=== PATIENT | female | born 1970 | race Caucasian/White ===

== ENCOUNTER 2022-06-24 15:07 | Outpatient (CLI) | payer MEDICARE, SELFPAY ==
--- OUTSIDE RECORDS SUMMARY | 2022-06-24 15:11 | XMS_ITS | Encounter Summary ---
:1970 Author Organization [facility] Address [address], [place] [address] Care Team Providers Name Role Phone Felipa Shrestha MD Primary Care Provider Reason for Visit Reason Comments Refill predniSONE (DELTASONE) 20 MG tablet Encounter Details Date Type Department Care Team Description 02/06/2022 Telephone [facility] Dino Zamora Refill ([facility] MD Gillian (DELTASONE) 20 MG Neurology [address] tablet) [address] [place] [phone] Social History Tobacco Use Types Packs/Day Years Used Date Smoking Tobacco: Never Smokeless Tobacco: Never Alcohol Use Standard Drinks/Week Comments Yes 0 (1 standard drink = 0.6 oz pure alcoho l) 2 servings a month Sex Assigned at Date Recorded Not on file documented as of this encounter Nursing Notes iVckie Asif - 02/09/2022 4:26 PM CDT CA contacted patient she now has [employer] insurance which is out of network for NSC She has temporarily switched Neurologists and is going to see about switching insurance next year soshe can come back and see Dr Sera Asif 02/09/2022, 4:27 PM Lissette Asif MD - 02/06/2022 2:56 PM CDT done Alexia Shaikh RN - 02/06/2022 2:18 PM CDT Routing to NOD to advise Alexia Shaikh RN 02/06/2022, 2:19 PM Alexia Shaikh RN - 02/06/2022 12:[address] Zamora-Please advise on refill request. CA- please contact pt to schedule a follow up appt. Pt states that she currently has a migraine. Medication reviewed to ensure medication is not a controlled substance, approved for RN to order perprotocol. Medication: predniSONE (DELTASONE) 20 MG tablet Last date filled: 04/02/2021 Last office visit with: Aliza on 04/2021 Last note states: Medications: Frovatriptan as needed for migraine Amitriptlyine 25 mg nightly Verapamil 240 mg nightly. ??Sumatriptan IM injection - autoinjector cannot swallow ??Iron every other day B complex supplement - 3 days a week Magnesium, Riboflavin ??Prednisone 20 mg x 5 days when needed for severe migraine. ??Advice: Increase aerobic activity. This will help your muscles and your migraines. Try to do 30 minutes a day of walking or elliptical. ??We have reviewed records from [facility], [facility], [facility]; likely more of severe migraine disorder than seizure disorder. ??Follow up: 6 months. Arabella Fernandes - 02/06/2022 12:00 PM CDT Pt has migraine and requesting refill - pt states Dr. Zamora said to call if she needed one - please do today documented in this encounter Plan of Treatment Not on filedocumented as of this encounter Visit Diagnoses Diagnosis Hemiplegic migraine with status migraino ezekiel, not intractable Hemiplegic migraine, without mention of intractable migraine with status migrainosus documented in this encounter Care Teams Day Care Home Provider Relationship Specialty Start Date End Date Felipa Shrestha MD PCP - General Family Practice 08/26/18 [address] [place] [address] documented as of this encounter
--- OUTSIDE RECORDS SUMMARY | 2022-06-24 15:11 | XMS_ITS | Clinical Summary ---
:1970 [facility] Address [address], [place] [address] Care Team Providers Name Role Phone Felipa Shrestha MD Primary Care Provider Source Comments You are receiving this document as you are listed as the primary care provider,follow-up provider, or the patient has been referred to you for consultation.This is in compliance with the Medicare and Medicaid EHR Incentive Program,which states Providers who transition their patient to another setting of careor provider of care or refers their patient to another provider of care shouldprovide summarycare record for each transition of care or referral. NovoED Allergies Active Allergy Reactions Severity Noted Date Comments Fentanyl 09/21/2018 Morphine 09/21/2018 Diazepam 09/21/2018 Hydroxyzine 09/21/2018 Ondansetron 09/21/2018 Medications Medication Sig Dispensed Refills Start End Date Status Date DIAZEPAM RE 0 Active drug not in Indications: 0 Activ e computerIndications: frovatritan 2.5 frovatritan 2.5 promethazine (PHENERGAN) Take 1 Tablet by 30 Tablet 3 01/22/20 2 Active 25 MG tabletIndications: mouth every 6 0 Hemiplegic migraine hours as needed without status for Nausea. migrainosus, not intractable ketorolac (TORADOL) 10 Take 1 Tablet by 30 Tablet 2 Active MG tabletIndications: mouth every 6 0 Hemiplegic migraine hours as needed without status (for migraines). migrainosus, not intractable dexamethasone (DECADRON) 4 mg for 3 days, 15 Tablet 3 01/22/20 2 Active 1 MG tabletIndications: 2mg for 1 day, 0 Hemiplegic migraine then 1mg x 1 day. without status migrainosus, not intractable Accu-Chek Mindy Plus Use to test daily. 1 Each 0 Active meterIndications: Use as directed. 0 Pre-diabetes Pharmacy dispense brand based on insurance. Code R73.03 lancet (ACCU-CHEK Use to test daily. 1 Each 0 Active FASTCLIX) Use as directed. 0 deviceIndications: Pharmacy dispense Pre-diabetes brand based on insurance. Code R73.03 verapamil (VERELAN) 240 Take 1 Capsule by 90 Capsule 3 02 Active MG 24 hour release mouth every 0 capsuleIndications: evening. Hemiplegic migraine without status migrainosus, not intractable, Migraine with aura and without status migrainosus, not intractable ACCU-CHEK GUIDE test USE TO TEST DAILY 100 Strip 3 Active stripIndications: 1 Pre-diabetes metFORMIN XR (GLUCOPHAGE Take 4 Tablets by 360 Tablet 0 Active XR) 500 MG 24 hour mouth daily with 1 release breakfast. tabletIndications: Pre-diabetes B ComplexIndications: Take one capsule 3 60 Capsule 0 02/05/20 2 Active Hemiplegic migraine with days a week. 1 status migrainosus, not intractable, Vitamin B12 deficiency (HRC) ferrous sulfate 325 (65 Take one tab daily 90 Tablet 0 02 Active Fe) MGIndications: with food. 1 Muscle cramping, Low ferritin level amitriptyline (ELAVIL) Take 1 Tablet by 90 Tablet 1 Active 25 MG tabletIndications: mouth daily at 1 Hemiplegic migraine bedtime. without status migrainosus, not intractable SUMAtriptan (IMITREX) 6 Inject 0.5 mL 2 mL 11 Active MG/0.5ML subcutaneously 1 injectionIndications: once as needed. Hemiplegic migraine without status migrainosus, not intractable hydroCHLOROthiazide TAKE 1 TABLET BY 90 Tablet 0 Active (ORETIC) 25 MG MOUTH DAILY. 1 tabletIndications: Essential hypertension (HRC) SUMAtriptan (IMITREX Inject 0.5 mL (6 2 mL 11 Active STATDOSE REFILL) 6 mg) subcutaneously 2 MG/0.5ML once as needed. injectionIndications: May repeat in 2 Hemiplegic migraine hours. MAX 2 doses without status a day. migrainosus, not intractable frovatriptan (FROVA) 2.5 Take 1 Tablet (2.5 9 Tablet 1 Active MG tabletIndications: mg) by mouth as 2 Hemiplegic migraine needed (migraine). without status migrainosus, not intractable predniSONE (DELTASONE) Take 1 Tablet (20 5 Tablet 0 Active 20 MG tabletIndications: mg) by mouth 2 Hemiplegic migraine with daily. For 3-5 status migrainosus, not days for migraine intractable flare. Active Problems Problem Noted Date Morbid obesity with BMI of 40.0-44.9, adult 02/22/2020 Prolonged QT interval 01/25/2020 MORIS (obstructive sleep apnea) 11/10/2018 Overview: Moderate, see scan doc 10/2018. Pre-diabetes 09/21/2018 SALLY (generalized anxiety disorder) 09/21/2018 Chronic ulcerative colitis 09/21/2018 Hemiplegic migraine 09/21/2018 Vitamin D deficiency 09/21/2018 Vitamin B12 deficiency 09/21/2018 Current moderate episode of major depressive disorder without prior 09/21/2018 episode Essential hypertension 09/21/2018 Secondary seizure disorder 09/21/2018 Overview: From hemiplegic migraines Polycystic ovary syndrome 03/05/2004 Resolved Problems Problem Noted Date Resolved Date Spasm of muscle 09/21/2018 08/02/2020 Nonintractable epilepsy 09/21/2018 09/21/2018 Overview: From her migraines. Family History Medical History Relation Name Comments Cancer, Bladder Father Cancer, Colon Father 77 Cancer, Prostate Father Diabetes Father Hypertension Father Bipolar Disorder Mother Hypertension Mother Migraines Child Diabetes Maternal Grandfather Diabetes Maternal Grandmother Diabetes Paternal Grandfather Diabetes Paternal Grandmother Migraines Sister Relation Name Status Comments Father Mother Child Maternal Grandfather Maternal Grandmother Paternal Grandfather Paternal Grandmother Sister Social History Tobacco Use Types Packs/Day Years Used Date Smoking Tobacco: Never Smokeless Tobacco: Never Alcohol Use Standard Drinks/Week Comments Yes 0 (1 standard drink = 0.6 oz pure alcoho l) 2 servings a month Sex Assigned at Date Recorded Not on file Last Filed Vital Signs Vital Sign Reading Time Taken Comments Blood Pressure 118/86 02/04/2021 1:06 PM CDT Pulse 80 02/04/2021 1:06 PM CDT Temperature - - Respiratory Rate 18 06/16/2019 8:03 AM CDT Oxygen Saturation - - Inhaled Oxygen Concentration - - Weight 103.4 kg (228 lb) 05/06/2021 2:35 PM CDT Height 170.2 cm (5' 7) 06/16/2019 8:03 AM CDT Body Mass Index 35.71 06/16/2019 8:03 AM CDT Plan of Treatment Health Maintenance Due Date Last Done Comments Colon Cancer Screening Plan 1970 Due Hep C Screening (Preventive 1970 Services) HepB (1) 1970 Medicare Annual Wellness 1970 Visit Mammogram 1970 COVID-19 Vaccine (#1) 05/16/1970 HIV Screening (Preventive 1985 Services) DTaP/Tdap/Td (1 - Tdap) 1988 Zoster/Shingles (1 of 2) 11/14/2019 Prediabetes: HGBA1C 01/22/2021 01/23/2020, 09/21/2018 Influenza (#1) 2022 Cholesterol 01/22/2025 01/23/2020, 09/21/2018 HepA Aged Out No longer eligib le based on patient's age to complete this to pic Hib Aged Out No longer eligib le based on patient's age to complete this to pic IPV (Polio) Aged Out No longer eligib le based on patient's age to complete this to pic MCV4 Aged Out No longer eligib le based on patient's age to complete this to pic Pneumococcal Aged Out No longer eligib le based on patient's age to complete this to pic Insurance Payer Benefit Plan / Subscriber ID Effective Dates Phone Addre ss Type Group MEDICARE MEDICARE [id number] 2006-Shala WADE [id number] 2021-Shala [phone] [address] MEDICARE t 2 [id number] [place] [address] 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
--- OUTSIDE RECORDS SUMMARY | 2022-06-24 15:12 | XMS_ITS | Encounter Summary ---
:1970 Author Organization [facility] Address [address], [place] [address] Care Team Providers Name Role Phone Felipa Shrestha MD Primary Care Provider Reason for Visit Reason Comments HEADACHE,MIGRAINE Encounter Details Date Type Department Care Team Description [facility]iplegic migraine without status migrainosus, not intractable (Primary Dx); [facility] MD Gillian Chronic ulcerative colitis with complica tion, unspecified location ([facility]); Neurology [address] Muscle aches; [address] [place], [place] [id number] Social History Tobacco Use Types Packs/Day Years Used Date Smoking Tobacco: Never Smokeless Tobacco: Never Alcohol Use Standard Drinks/Week Comments Yes 0 (1 standard drink = 0.6 oz pure alcoho l) 2 servings a month Sex Assigned at Date Recorded Not on file documented as of this encounter Last Filed Vital Signs Vital Sign Reading Time Taken Comments Blood Pressure - - Pulse - - Temperature - - Respiratory Rate - - Oxygen Saturation - - Inhaled Oxygen Concentration - - Weight 103.4 kg (228 lb) 05/06/2021 2:35 PM CDT Height - - Body Mass Index 35.71 06/16/2019 8:03 AM CDT documented in this encounter Patient Instructions Patient InstructionsDino Zamora MD - 05/06/2021 2:20 PM CDT Hemiplegic/Atypical migraine Dizziness Seizure Disorder - I am not sure that you have a seizure disorder History of Vitamin B12 and D deficiency Muscle cramping, twitching -- restless legs -- related to low ferritin Ulcerative Colitis Likely Inflammation from diet is provoking migraines - you have identified that as a trigger. Tests: Labs look okay - there is low ferritin, low CK. Can remeasure iron and ferritin. Medications: Frovatriptan as needed for migraine Amitriptlyine 25 mg nightly Verapamil 240 mg nightly. Sumatriptan IM injection - autoinjector if you cannot swallow Iron every other day B complex supplement - 3 days a week Magnesium, Riboflavin Prednisone 20 mg x 5 days when needed for severe migraine. Advice: Increase aerobic activity. This will help your muscles and your migraines. Try to do 30 minutes a day of walking or elliptical. Follow up: 6 months. documented in this encounter Progress Notes Dino Zamora MD - 05/06/2021 2:20 PM CDT DATE OF VISIT: 05/06/21 [facility] Neurology [address] [place] [address] Dept: [phone] Dept VIDEO VISIT Patient location: Home Provider location: [facility] IMPRESSION AND DISCUSSION: Sandra Pimentel is a 50 y.o. old female # Hemiplegic migraine and possible seizure disorder Diagnosis of hemiplegic migraine and seizure disorder diagnosed at [facility] in 2009. She getssevere headaches that last all day and gets weakness on the RIGHT side and atypical movements on theRIGHT Side. She has not had an abnormal EEG. There has been some question to whether this is a seizure disorder but she has not had abnormal imaging or EEG. She has had catatonic type episodes and inability to move. She has had a normal MRA Head, MRI BRAIN and EEG monitoring (with events) as of 2003 evaluation at [facility]. She had normal imaging and EEG at [facility] in 2011. We have reviewed records from [facility], [facility], [facility]; likely more of severe migraine disorder than seizure disorder or vascular disorder. There is no evidence of vascular disease or seizure per workup. She has been on several other meds that have not helped. I have refilled Verapamil. Given her QT prolongation we reduced her Amitriptyline to 25 mg nightly in 01/2020. She has done okay on this dose. - Verapamil 240 mg nightly - Frovatriptan as needed. Using 5-9x a month. - Amitriptyline 25 mg daily. - Magnesium, Riboflavin, CoQ10. - Sumatriptan IM injection - autoinjector cannot swallow She went to the [facility] recently. We have requested records. She needed slow Mag drip. She needed injection. She did not tolerate Motrin or Toradol due to chronic US. We talked about Prednisone 20 mg x 5 days when getting bad migraine spells. She has had prednisone induced wilma. She thinks this was related to weather. These were hemiplegic migraine with weakness on right side. - Prednisone 20 mg x 5 days if needed. # Dizziness and syncope She had syncopal event at home x 2 on 01/25/20 and was admitted. She was found to have prolonged QT interval. She states she was put on a new medication (HCTZ/lisinopril) and passed out. She does not remember the dose of this medication. She has been helped over the years by Verapamil and Amitriptyline. She has since moved to [facility] and was managed at [facility]; they were considering autonomic neuropathy (we do not have full records). She is now off of amlodopine and metformin and dizziness is improved. Of note she has also lost weight. This has improved since stopping Weight Watchers diet and reducing blood pressure as of December 2020. Does not appear related to migraine. She is going to restart Weight Watchers. We talked about taking iteasy and incorporating aerobic exercise. # Twitching, nocturnal cramps, low ferritin More muscle cramps during the day in Summer 2020. Could be related to her chronic UC. She has had some episodes of twitching and nocturnal cramps. She thought amlodopine could be contributing to these cramps, she is now off of it. These are exacerbated during migraines. She has a history of anemia dueto ulcerative colitis. To check ferritin and iron given RLS and mm cramps. To do ferrous sulfate every other day as of 04/2021. This has improved since replacing ferritin and doing walking program. # History of B12 deficiency and Vit D deficiency, related to Chronic UC Normal levels as of 02/27/20. She may be having more sx due to B vitamin deficiency. We will start B Complex supplement 3 days a week. We will remeasure B vitamins today. We have reviewed and will ask for further records from [facility] and [facility]. PLAN (per patient instructions): Hemiplegic/Atypical migraine Dizziness Seizure Disorder - I am not sure that you have a seizure disorder History of Vitamin B12 and D deficiency Muscle cramping, twitching -- restless legs -- related to low ferritin Ulcerative Colitis Likely Inflammation from diet is provoking migraines - you have identified that as a trigger. Tests: Labs look okay - there is low ferritin, low CK. Can remeasure iron and ferritin. Medications: Frovatriptan as needed for migraine Amitriptlyine 25 mg nightly Verapamil 240 mg nightly. Sumatriptan IM injection - autoinjector cannot swallow Iron every other day B complex supplement - 3 days a week Magnesium, Riboflavin Prednisone 20 mg x 5 days when needed for severe migraine. Advice: Increase aerobic activity. This will help your muscles and your migraines. Try to do 30 minutes a day of walking or elliptical. We have reviewed records from [facility], [facility], [facility]; likely more of severe migraine disorder than seizure disorder. Follow up: 6 months. Interval Hx: - Steroids really helped. Took for 5 days then additional 2 days. Sugar spiked to 216. She has borderline diabetes. Stopped second treatment after 2 days. - Thinks it was heat and stress, lack of sleep that provoked migraine exacerbation. Getting better sleep now. She is exercising more. - No LOC episodes. - Dizziness spells, not as much now, went off amlodopine. - Taking Benadryl, CBD oil, Motrin, Tylenol for muscle cramping, pain. Motrin and Toradol mess with her colitis. - Lost 46 lbs since last visit in January. She started Weight Watchers but not for her, she has lost 7 lbs overall, had to switch to modified version. She thinks that she is no longer diabetic and perhapsmetformin was causing problems as well. When follows Weight Watchers - less migraines, feels better. History of Present Illness: Sandra Pimentel is a 50 y.o. old female right-handed History was obtained by patient and family interview, chart review and CareEverywhere review. Seen [facility] 01/25/20 for syncopal episode x2 while at home. She has history of hemiplegic migraine and have 5-7 episodes per month and takes medication for it. She was seen by her PCP and was started on lisinopril/hydrochlorothiazide . Previously she was on hydrochlorothiazide and did fairly well but her blood pressure without control. Nevertheless, she was out shopping today and felt somewhat dizzy and was able to drive herself home. Relates that she have a brief episode of syncope duration unknown and thought nothing of it. However, she experienced another episode while climbing a flightof stairs. Again duration unknown. Relates that she suffered some right knee discomfort but is able to ambulate fairly well. She called PCP and notify her of the syncopal episode and was advised to be evaluated in the ER. Indicated these episodes are most likely secondary to the blood pressure medication. Patient was given IV fluid in the ER and was advised to be admitted with noted prolonged QT interval. Blood pressure medication was withheld for the time being. She will be placed on telemetry also. Has history of hemiplegic migraine, hypertension and diabetic type 2. She was provided with IV fluids and admission was recommended for monitoring. Overnight she did well. After initial blood pressures were less than 90, her antihypertensive medications were held and they state above 110 during her hospital stay. She had no tachycardia. There are no events on telemetry overnight. She was able to ambulate and was requesting to go home the day after admission. She was discharged in stable condition. It was recommended that she resume her hydrochlorothiazide alone and discuss a lower dose of lisinopril with her primary care provider. She will continue to monitor her blood pressure at home. She will continue on her diabetic medication as well as migraine medication as previously prescribed. She has had a chronic indeterminate illness which can continue to be evaluated by her primary care provider. I would suggest that she have a repeat EKG done at her follow-up appointment for further evaluation of the QT prolongation. It is known that amitriptyline can increase the QT duration, however she willbe continued on this medication for management of her migraines. She was encouraged to limit the useof promethazine and diphenhydramine which also may prolong the QT interval. She was diagnosed with hemiplegic migraine and seizure disorder about 10 years ago in [place] (2009). She initially got sick with a severe migraine in the year 1999. July 2000 - was hospitalized with tonic clonic seizures. She notes that she has had several evaluations, including in [place], with EEG and MRI BRAIN - these have been normal. She recently saw a neurologist Dr. Darvin Eli in [facility]. At worst she has having 25 episodes of headache and nausea/vomiting a month. She has been helped by Magnesium treatments, and moving away from coal, magnesium and other toxins. She is also staying awayfrom eating beef. She is now getting 5-7 episodes a month. She gets convulsions, arm and leg twisting, retching, sometimes nausea and vomiting, back arching. She was told she may have a conversion disorder. She has not had many of these episodes recently now that she has been trying to eat and live healthier. Medication trials: Depakote - Weight gain Trazodone - Allergies Topamax - Cognitive changes, some other changes (20 years ago and did not help) Frovatriptan has been a godsend. If she takes it within 10-20 minutes of an aura it brings her to a level she was better than she was before. This is only if she has a speech episode or looks pale orgets another type of aura. DATA: All labs, radiology images/reports, data was reviewed personally and with patient today. Component Latest Ref Rng & Units 05/06/2021 Vitamin B12 213 - 816 pg/mL 363 Ferritin 9 - 204 ng/mL 47 Component Latest Ref Rng & Units 02/27/2020 Vitamin B12 213 - 816 pg/mL 448 Vitamin D,25 Hydroxy 30 - 80 ng/mL 31 ESR 0 - 20 mm/hr 13 C-Reactive Protein 0.0 - 0.7 mg/dL 1.0 (H) EKG: Ventricular Rate 95 BPM Preliminary Atrial Rate 95 BPM Preliminary P-R Interval 144 ms Preliminary QRS Duration 76 ms Preliminary QT 370 ms Preliminary QTc 464 ms Preliminary P [place] 62 degrees Preliminary R [place] -14 degrees Preliminary T [place] 40 degrees Preliminary Component Latest Ref Rng & Units 12/03/2020 Iron 50 - 170 mcg/dL 92 Transferrin 180 - 382 mg/dL 299 TIBC 240 - 450 mcg/dL 374 % Saturation, calc. 10 - 50 % 25 Ferritin 9 - 204 ng/mL 46 CK, Total 29 - 168 U/L 27 (L) LD 119 - 235 U/L 159 ESR 0 - 20 mm/hr 15 C-Reactive Protein 0.0 - 0.7 mg/dL 0.7 MRA HEAD 04-Mar-2004 09:22:00 ??Exam: MRA/v Hd wo Indications: mra head - r/o aneurysm^ ORIGINAL REPORT - 04-Mar-2004 11:12:00 MRA of the intracranial arterial system is negative. Major intracranial vessels are patent and without MRA evidence of aneurysm. Prominent right posterior communicating artery. MRI BRAIN 2004 31-Aug-2003 13:19:00 Exam: MRI Hd wo Indications: headseizure protocol^sz ORIGINAL REPORT - 31-Aug-2003 14:13:00 MRI head without contrast, compared with outside MRI of 07-07-02. The intracranial examination is normal. Mild mucosal disease anterior left ethmoid air cells and moderate mucosal disease throughout the right ethmoid air cells, not significantly changed. Minimal mucosal disease both maxillary sinuses with polyp or mucosal retention cysts bilaterally, new. No other significant change. Remainder negative. Ind: 107.990 Dia.200 Kentrell Soares MD [phone] ([id number]) I have reviewed the films/images and agree with the above interpretation. Electronically signed by: Vicki Campbell M.D. [id number] 31-Aug-2003 14:11 EEG 2003 Referring Physician: ??Basim ??[id number] ? Date: ??30 Aug 2003 ?? EEG Transformer Molder: ? Michelle Nogueira [id number] ? 31 Aug 2003 ?? Clinical Problem: ? Computer-assisted prolonged video EEG ?? CLINICAL INTERPRETATION: ??The patient's prolonged video EEG monitoring study was normal. ??No epileptiform activity was ?? recorded. ??The patient experienced one of her typical episodes of headache, nausea, and vomiting with abdominal ?? jerking. ??During the period of these symptoms, there was no change in the character of the background EEG. ??There was ?? an excess of beta activity, which would be consistent with medications that the patient is receiving. ?? EEG CLASSIFICATION: ??Special study - computer-assisted prolonged video EEG; Dysrhythmia gr. 1 generalized excess beta ?? 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 ?? REPORT: ??Computer-assisted prolonged video EEG monitoring was performed beginning on 08-30-03 at 11:00 and concluding on ?? 08-31-03 at 11:00. ?? BACKGROUND: Computer-assisted sampling of the interictal background revealed 9-10 Hz alpha activity over the posterior ?? head regions. ??There was an excess of beta activity, maximal over the frontal head regions. ??Sleep activity was normal ?? in content and distribution. ?? INTERICTAL DISCHARGES: ??No interictal discharges were recorded. ?? CLINICAL EVENTS: ??During the monitoring period, the patient experienced one of her typical spells, which began with ?? acute onset of headache, nausea, and maliha vomiting. ??One hour and 15 minutes into this episode, the patient was noted ?? to have her typical abdominal jerking movements, in which she flexed forward at the waist with left shoulder moving ?? toward the right side. ??The patient had audible grunting or retching associated with this movement. ??Throughout this ?? episode, there was no change in the character of the background EEG recording. 30 Aug 2003 Electroencephalography Final Report Referring Physician: Basim [id number] Date: 30 Aug 2003 EEG Transformer Molder: Michelle Nogueira [id number] 31 Aug 2003 Clinical Problem: Computer-assisted prolonged video EEG CLINICAL INTERPRETATION: The patient's prolonged video EEG monitoring study was normal. No epileptiform activity was recorded. The patient experienced one of her typical episodes of headache, nausea, and vomiting with abdominal jerking. During the period of these symptoms, there was no change in the character of the background EEG. There was an excess of beta activity, which would be consistent with medications that the patient is receiving. EEG CLASSIFICATION: Special study - computer-assisted prolonged video EEG; Dysrhythmia gr. 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 REPORT: Computer-assisted prolonged video EEG monitoring was performed beginning on 08-30-03 at 11:00and concluding on 08-31-03 at 11:00. BACKGROUND: Computer-assisted sampling of the interictal background revealed 9- 10 Hz alpha activityover the posterior head regions. There was an excess of beta activity, maximal over the frontal head regions. Sleep activity was normal in content and distribution. INTERICTAL DISCHARGES: No interictal discharges were recorded. CLINICAL EVENTS: During the monitoring period, the patient experienced one of her typical spells, which began with acute onset of headache, nausea, and maliha vomiting. One hour and 15 minutes into this episode, thepatient was noted to have her typical abdominal jerking movements, in which she flexed forward at the waist with leftshoulder moving toward the right side. The patient had audible grunting or retching associated with this movement. Throughout this episode, there was no change in the character of the background EEG recording. CONSTITUTIONAL REVIEW OF SYSTEMS: Negative across 10 systems except for HPI and: Dizziness spells No recent illness No change to urine or bowel. Past Medical History: has no past medical history on file. has a past surgical history that includes laparoscopy; total abdominal hysterectomy; cholecystectomy; and appendectomy. Social History: reports that she has never smoked. She has never used smokeless tobacco. She reportscurrent alcohol use. She reports that she does not use drugs. She is on disability. 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 Family History: family history includes Bipolar Disorder in her mother; Cancer, Bladder in herbirth father; Cancer, Colon in her father; Cancer, Prostate in her father; Diabetes in her father, maternal grandfather, maternal grandmother, paternal grandfather, and paternal grandm other; Hypertension in her father and mother; Migraines in her child and sister. Allergies Allergen Reactions ??? Fentanyl ??? Morphine ??? Valium [Diazepam] ??? Vistaril [Hydroxyzine] ??? Zofran [Ondansetron] Accu-Chek Mindy Plus meter, Use to test daily. Use as directed. Pharmacy dispense brand based on insurance. Code R73.03, Disp: 1 Each, Rfl: 0 ACCU-CHEK GUIDE test strip, USE TO TEST DAILY, Disp: 100 Strip, Rfl: 3 amitriptyline (ELAVIL) 25 MG tablet, Take 1 Tablet by mouth daily at bedtime., Disp: 90 Tablet, Rfl:1 B Complex, Take one capsule 3 days a week., Disp: 60 Capsule, Rfl: 0 dexamethasone (DECADRON) 1 MG tablet, 4 mg for 3 days, 2mg for 1 day, then 1mg x 1 day., Disp: 15 Tablet, Rfl: 3 DIAZEPAM RE, , Disp: , Rfl: drug not in computer, Indications: frovatritan 2.5, Disp: , Rfl: estradiol (VIVELLEDOT) 0.1 MG/24HR biweekly patch, Apply 1 Patch to skin., Disp: , Rfl: ferrous sulfate 325 (65 Fe) MG, Take one tab daily with food., Disp: 90 Tablet, Rfl: 0 frovatriptan (FROVA) 2.5 MG tablet, Take 1 Tablet by mouth once as needed for up to 1 dose., Disp: 9Tablet, Rfl: 11 hydroCHLOROthiazide (ORETIC) 25 MG tablet, TAKE 1 TABLET BY MOUTH DAILY. , Disp: 90 Tablet, Rfl: 1 ketorolac (TORADOL) 10 MG tablet, Take 1 Tablet by mouth every 6 hours as needed (for migraines)., Disp: 30 Tablet, Rfl: 2 lancet (ACCU-CHEK FASTCLIX) device, Use to test daily. Use as directed. Pharmacy dispense brand based on insurance. Code R73.03, Disp: 1 Each, Rfl: 0 metFORMIN XR (GLUCOPHAGE XR) 500 MG 24 hour release tablet, Take 4 Tablets by mouth daily with breakfast., Disp: 360 Tablet, Rfl: 0 predniSONE (DELTASONE) 20 MG tablet, TAKE 1 TABLET BY MOUTH DAILY. FOR 3-5 DAYS FOR MIGRAINE FLARE.,Disp: 5 Tablet, Rfl: 0 promethazine (PHENERGAN) 25 MG tablet, Take 1 Tablet by mouth every 6 hours as needed for Nausea., Disp: 30 Tablet, Rfl: 3 sulfaSALAzine (AZULFIDINEENTAB) 500 MG enteric coated tablet, Take 1 Tablet by mouth 4 times a day. Take with food to minimize GI upset especially in first week of use., Disp: 360 Tablet, Rfl: 3 SUMAtriptan (IMITREX) 6 MG/0.5ML injection, Inject 0.5 mL subcutaneously once as needed., Disp: 2 mL, Rfl: 11 verapamil (VERELAN) 240 MG 24 hour release capsule, Take 1 Capsule by mouth every evening., Disp: 90Capsule, Rfl: 3 No current facility-administered medications on file as of 05/06/2021. PHYSICAL EXAMINATION: Wt 228 lb (103.4 kg) BMI 35.71 kg/m?? General: Patient was a pleasant 50 y.o. female, appearing stated age, resting comfortably and in no acute distress. Pain level 5/10. HEENT: Anicteric. Oropharynx was clear and moist. There was no tenderness in the frontal or maxillary sinuses, nor the temples. Neck:Good ROM. nontender. Extr: no edema NEUROLOGICAL EXAM: Mental Status: Patient???s behavior was appropriate and cooperative. The patient was aware of current events. Speech was fluent without paraphasic errors. Normal recall. CN II-XII: Visual polo were full to confrontation. Extraocular movements were intact with normal smooth pursuit. Sensation was intact in V1, V2, V3 distribution. There was no facial asymmetry. Facialmovements were normal. There was no hypomimia or hypophonia or dysarthria. Sensation: Normal. Gait: Normal stance and stride. TT 44 mins with counseling, education and coordination of care, and answering questions, including effects and side effects of medications, medication interactions, and changes to the medication regimen as above, and review of records from [facility] and [facility]. Counseling: All of the above was explained to the patient in lay language. The patient has verbalized a clear understanding of the discussion, asked appropriate questions, which have been answered to patient's apparent satisfaction. The patient is in agreement with the above plan. Dino Zamora M.D. [facility] Neurology documented in this encounter Plan of Treatment Not on filedocumented as of this encounter Results Iron (no IBC or Sat) (05/06/2021 9:18 AM CDT) P athologist Signature Iron 73 50 - 170 05/06/2021 [facility] mcg/dL 3:27 PM CDT LABORATORY Specimen Anatomical Collection Method / Collection Time Recei jagdeep Time (Source) Location / Volume Laterality Blood Venipuncture / 05/06/2021 9:18 05/06/2021 9:18 Unknown AM CDT AM CDT Dino Zamora MD LAB_1 Performing Organization Address City/State/ZIP Code Phon e Number [facility] [address] [place] [address] documented in this encounter Visit Diagnoses Diagnosis Hemiplegic migraine without status migra inosus, not intractable - Primary Hemiplegic migraine, without mention of intractable migraine without mention of status migrainosus Chronic ulcerative colitis with complica tion, unspecified location ([facility]) Muscle aches Iron deficiency ([facility]) Other disorders of iron metabolism documented in this encounter Care Teams Sales Representative Public Utilities Relationship Specialty Start Date End Date Felipa Shrestha MD PCP - General Family Practice 08/26/[address] [place] [address] [id number] documented as of this encounter
--- OUTSIDE RECORDS SUMMARY | 2022-06-24 15:12 | XMS_ITS | Encounter Summary ---
:1970 Author Organization [facility] Address [address], [place] [address] Care Team Providers Name Role Phone Victor M Shrestha MD Primary Care Provider Reason for Visit Reason Comments Refill hydroCHLOROthiazide (ORETIC) 25 MG tablet [Pharmacy Med Name: hydroCHLOROthiazide Oral Tab let 25 MG] Encounter Details Date Type Department Care Team Description 08/04/2021 Refill [facility] Victor M Shrestha, Refill (hydroCHLOROthiazide Medicine (ORETIC) 25 MG tablet [id number] Magana [Pharmacy Med Name: [place] [address] [place], [place] hydroCHLOROthiazide Oral [phone] [id number] Tablet 25 MG]) Social History Tobacco Use Types Packs/Day Years Used Date Smoking Tobacco: Never Smokeless Tobacco: Never Alcohol Use Standard Drinks/Week Comments Yes 0 (1 standard drink = 0.6 oz pure alcoho l) 2 servings a month Sex Assigned at Date Recorded Not on file documented as of this encounter Nursing Notes Shabnam Calle - 08/11/2021 9:50 AM CST LM regarding refill. Gave [phone] to schedule before next refill request. Victor M Cohen MD - 08/06/2021 3:17 PM CST Refill completed and no further refills will be given prior to a visit. ATION SITE MANAGER Moshe Ulloa RN - 08/06/2021 2:27 PM CST Further Assistance Needed on Refill from Clinician RN reviewed. Patient overdue for Lab(s). -> Cr, K, and Na are overdue (performed over 17 months ago, required every 12 months) Last qualifying visit: 08/02/2020 (with VICTOR M SHRESTHA) Next scheduled visit: None Review pended order for accuracy. Sign if appropriate. Document if appointment is needed for furtherrefills. Route to care team to notify patient if needed. Requested Prescriptions Pending Prescriptions Disp Refills hydroCHLOROthiazide (ORETIC) 25 MG tablet [Pharmacy Med Name: hydroCHLOROthiazide Oral Tablet 25 MG] 90 Tablet 0 Sig: TAKE 1 TABLET BY MOUTH DAILY. ATION SITE MANAGER Interface, Out [employer] Prov Query - 08/04/2021 11:05 AM CST hydroCHLOROthiazide (ORETIC) 25 MG tablet [Pharmacy Med Name: hydroCHLOROthiazide Oral Tablet 25 MG] Medication started: 09/21/2018 Last ordered by VICTOR M SHRESTHA: 11/04/2020 (273 days ago) QTY: 90, Refills: 1, Sig: take 1 tablet by mouth daily. (unchanged) -> Cr, K, and Na are overdue (performed over 17 months ago, required every 12 months) Last qualifying visit: 08/02/2020 (with VICTOR M SHRESTHA) Next scheduled visit: None Cr: 1 mg/dL on 02/27/2020 Na: 141 mEq/L on 02/27/2020 K: 4.2 mEq/L on 02/27/2020 Powered by [employer] by [employer], Reference: [id number], 08/04/2021 11:05:58 AM EDUCATION SITE MANAGER, Pito RICH REFSAULO ([id number]) ATION SITE MANAGER Interface, Out [employer] Prov Query - 08/04/2021 11:05 AM CST The following lab order(s) may be associated with the following Patient Result Comment (Entered by Victor M Shrestha MD at 02/27/2020 2:05 PM): BASIC METABOLIC PANEL I am pleased to inform you that your labs are normal. ATION SITE MANAGER documented in this encounter Plan of Treatment Not on filedocumented as of this encounter Visit Diagnoses Diagnosis Essential hypertension (HRC) Unspecified essential hypertension documented in this encounter Care Teams Product Marketer Relationship Specialty Start Date End Date Victor M Shrestha MD PCP - General Family Practice 08/26/[address] [place] [address] [place] [address] documented as of this encounter
--- OUTSIDE RECORDS SUMMARY | 2022-06-24 15:12 | XMS_ITS | Encounter Summary ---
:1970 Author Organization [facility] Address [address], [place] [address] Care Team Providers Name Role Phone Felipa Shrestha MD Primary Care Provider Reason for Visit Reason Onset Date Comments MEDICATION CHECK Diabetes No Show 05/23/2020 Encounter Details Date Type Department Care Team Description 05/23/2020 Telemedicine [facility] Felipa Shrestha, [facility] Medicine MD administrative purposes [address] [address] Matt Magana (Primary Dx) [place] [place] [address] [address] [place] [phone] [id number] Social History Tobacco Use Types Packs/Day Years Used Date Smoking Tobacco: Never Smokeless Tobacco: Never Alcohol Use Standard Drinks/Week Comments Yes 0 (1 standard drink = 0.6 oz pure alcoho l) 2 servings a month Sex Assigned at Date Recorded Not on file documented as of this encounter Progress Notes Felipa Shrestha MD - 05/23/2020 2:15 PM CDT Patient did not arrive for this scheduled appointment. documented in this encounter Plan of Treatment Not on filedocumented as of this encounter Visit Diagnoses Diagnosis Encounters for administrative purposes - Primary Encounters for unspecified administrativ e purpose documented in this encounter Care Teams Application Development Project Manager Relationship Specialty Start Date End Date Felipa Shrestha MD PCP - General Family Practice 08/26/[address] [place] [id number] documented as of this encounter
--- OUTSIDE RECORDS SUMMARY | 2022-06-24 15:12 | XMS_ITS | Encounter Summary ---
:1970 Author Organization [facility] Address [address] [address] Care Team Providers Name Role Phone Felipa Shrestha MD Primary Care Provider Reason for Visit Reason Comments Consult, New Patient Encounter Details Date Type Department Care Team Description 02/20/2020 [facility]iplegic [facility] without status migrainosus, not intractable (Primary Dx); [facility] MD Gillian Secondary seizure disorder (HRC); Neurology [address] Migraine with aura and without status mi grainosus, not intractable; [address] [place], [place] SALLY (generalized anxiety dis order); [place], [place] [phone] Vitamin D deficiency; [phone] Vitamin B12 def iciency (Work) Social History Tobacco Use Types Packs/Day Years Used Date Smoking Tobacco: Never Smokeless Tobacco: Never Alcohol Use Standard Drinks/Week Comments Yes 0 (1 standard drink = 0.6 oz pure alcoho l) 2 servings a month Sex Assigned at Date Recorded Not on file documented as of this encounter Last Filed Vital Signs Vital Sign Reading Time Taken Comments Blood Pressure 145/100 02/20/2020 3:20 PM CDT Pulse 104 02/20/2020 3:20 PM CDT Temperature - - Respiratory Rate - - Oxygen Saturation - - Inhaled Oxygen Concentration - - Weight 117.5 kg (259 lb) 02/20/2020 3:20 PM CDT Height - - Body Mass Index 40.57 06/16/2019 8:03 AM CDT documented in this encounter Patient Instructions Patient InstructionsDino Zamora MD - 02/20/2020 2:45 PM CDT Reason for today's visit: Chief Complaint Patient presents with ??? Consult, New Patient Diagnosis: I agree you have hemiplegic migraine and atypical migraine. I am not sure that you have a seizure disorder. You have had Vitamin B12 and D deficiency. Tests: We will check labs. Medications: Frovatriptan as needed for migraine Amitriptlyine 25 mg nightly (reduce from 50 mg nightly). Verapamil 240 mg nightly. Advice: Keep active as you can. Follow up: 3 months If you have any questions about your visit, your symptoms, your medication, your test results or it is not clear what your diagnosis or treatment plan is please contact us (via on-line services/e-mail)or call my office at [phone]. Nurse: Kelly King RN. It was a pleasure to see you today. Sincerely, Dino Zamora M.D. Neurology and Neuromuscular Medicine [facility] documented in this encounter Progress Notes Dino Zamora MD - 02/20/2020 2:45 PM CDT DATE OF VISIT: 02/20/20 [facility] Neurology [address] [place] [address] Dept: [phone] Dept The consult was requested by: Dian Troncoso M.D.?? [facility] [address] [place]?? [place] [address]?? [phone]? PCP: Felipa Shrestha MD Chief Complaint Patient presents with ??? Consult, New Patient IMPRESSION AND DISCUSSION: Sandra Pimentel is a 49 y.o. old female with diagnosis of hemiplegic migraine and seizure disorder diagnosed at [facility] in 2009. She gets severe headaches that last all day and gets weakness on the RIGHT side and atypical movements on the RIGHT Side. She has not had an abnormal EEG. There has been some question to whether this is a seizure disorder but she has not had abnormal imaging or EEG. She has had catatonic type episodes and inability to move. She has had a normal MRA Head, MRI BRAIN and EEG monitoring (with events) as of 2003 evaluation at [facility]. She had normal imaging and EEG at [facility] in 2011. She recently had syncopal event at home x 2 on 01/25/20 and was admitted. She was found to have prolonged QT interval. She states she was put on a new medication (HCTZ/lisinopril) and passed out. She does not remember the dose of this medication. She has been helped over theyears by Verapamil and Amitriptyline. She has since moved to [facility] and was managed at [facility]; they were considering another diagnosis (do not have records). She has been on several other meds that have not helped. I have refilled Verapamil. Given her QT prolongation we will reduce herAmitriptyline to 25 mg nightly. We will ask for [facility] PLAN (per patient instructions): Diagnosis: I agree you have hemiplegic migraine and atypical migraine. I am not sure that you have aseizure disorder. You have had Vitamin B12 and D deficiency. Tests: We will check labs. Medications: Frovatriptan as needed for migraine Amitriptlyine 25 mg nightly (reduce from 50 mg nightly). Verapamil 240 mg nightly. Advice: Keep active as you can. Follow up: 3 months History of Present Illness: Sandra Pimentel is a 49 y.o. old female right-handed History was obtained by patient and family interview, [facility] and [facility]. Seen [facility] 01/25/20 for syncopal episode x2 while at [...] seizure disorder about 10 years ago in [place] (2009). She initially got sick with a severe migraine in the year 1999. July 2000 - was hospitalized with tonic clonic seizures. She notes that she has had several evaluations, including in [place], with EEG and MRI BRAIN - these have been normal. She recently saw a neurologist Dr. Darvin Eli in [facility]. At worst she has having 25 [...] was reviewed personally and with patient today. MRA HEAD 04-Mar-2004 09:22:00 ??Exam: MRA/v Hd [...] negative. Ind: [phone] Dia.200 Kentrell Soares MD [phone] ([id number]) I have reviewed the films/images and agree with the above interpretation. Electronically signed by: Vicki Campbell M.D. [id number] 31-Aug-2003 14:11 EEG 2004 Referring Physician: ??Basim ??[id number] ? Date: ??30 Aug 2003 ?? EEG [place]: ? Michelle Nogueira [phone] ? 31 Aug 2003 ?? Clinical Problem: [...] no activation; ??Recorded symptoms without electrographic correlate; ??digital forensic analyst. ?? REPORT: ??Computer-assisted prolonged video EEG monitoring [...] Electroencephalography Final Report Referring Physician: Basim [id number] Date: 30 Aug 2003 EEG [place]: Michelle Nogueira [phone] 31 Aug 2003 Clinical Problem: Computer-assisted prolonged [...] no activation; Recorded symptoms without electrographic correlate; digital forensic analyst. REPORT: Computer-assisted prolonged video EEG monitoring was [...] across 10 systems except for HPI and: Past Medical History: has no past medical history on file. has a past surgical history that includes laparoscopy; total abdominal hysterectomy; cholecystectomy; and appendectomy. Social History: reports that she has never smoked. She has never used smokeless tobacco. She reportscurrent alcohol use. She reports that she does not use drugs. She is on disability. She Family History: family history includes Bipolar Disorder [...] Code R73.03, Disp: 1 Each, Rfl: 0 amitriptyline (ELAVIL) 50 MG tablet, Take 0.5 Tablets by mouth daily at bedtime., Disp: 90 Tablet, Rfl: 1 bisacodyl (BISACODYL) 5 MG enteric coated tablet, Take 4 tablets by mouth once at 5 PM the evening before your procedure. (Patient not taking: Reported on 01/22/2020), Disp: 4 Tablet, Rfl: 0 blood glucose (ACCU-CHEK MINDY PLUS) test strip, Use to test daily. Code R73.03, Disp: 100 Strip, Rfl: 3 dexamethasone (DECADRON) 1 MG tablet, 4 mg for 3 days, 2mg for 1 day, then 1mg x 1 day., Disp: 15 Tablet, Rfl: 3 DIAZEPAM RE, , Disp: , Rfl: drug not in computer, Indications: frovatritan 2.5, Disp: , Rfl: frovatriptan (FROVA) 2.5 MG tablet, Take 1 Tablet by mouth once as needed for up to 1 dose., Disp: 9Tablet, Rfl: 11 hydroCHLOROthiazide (ORETIC) 25 MG tablet, TAKE 1 TABLET BY MOUTH DAILY., Disp: 90 Tablet, Rfl: 0 ketorolac (TORADOL) 10 MG tablet, Take 1 Tablet by mouth every 6 hours as needed (for migraines)., Disp: 30 Tablet, Rfl: 2 lancet (ACCU-CHEK FASTCLIX) device, Use to test daily. Use as directed. Pharmacy dispense brand based on insurance. Code R73.03, Disp: 1 Each, Rfl: 0 lancets (ACCU-CHEK FASTCLIX), Use 1 Each to test daily. Code R73.03, Disp: 100 Each, Rfl: 3 lisinopril-hydroCHLOROthiazide (PRINZIDE) 20-25 MG tablet, Take 1 Tablet by mouth daily., Disp: 90 Tablet, Rfl: 3 metFORMIN XR (GLUCOPHAGE XR) 500 MG 24 hour release tablet, Take 4 Tablets by mouth daily with breakfast., Disp: 360 Tablet, Rfl: 3 polyethylene glycol-electrolyte (PEG ELECTROLYTE) 236 g oral solution, Take as directed in patient instructions: drink 2000mL at 6 PM the evening before and 2000mL 4 hours before your procedure (Patient not taking: Reported on 01/22/2020), Disp: 4000 mL, Rfl: 0 predniSONE (DELTASONE) 10 MG tablet, Take 1 Tablet by mouth daily. As needed for colitis flair., Disp: 30 Tablet, Rfl: 3 promethazine (PHENERGAN) 25 MG tablet, Take 1 [...] by mouth every evening., Disp: 90Capsule, Rfl: 0 No current facility-administered medications on file as of 02/20/2020. PHYSICAL EXAMINATION: BP (!) 145/100 Pulse (!) 104 Wt 259 lb (117.5 kg) BMI 40.57 kg/m?? General: Patient was a pleasant 49 y.o. female, appearing stated age, resting comfortably and in no acute distress. HEENT: Anicteric. Oropharynx was clear and moist. There was no tenderness in the frontal or maxillary sinuses, nor the temples. Neck:Good ROM. Chest: Nonlabored breathing. Abdomen: Soft, nontender and nondistended. Extremities: Warm and well-perfused. No edema. NEUROLOGICAL EXAM: Mental Status: Patient???s behavior was appropriate and cooperative. The patient was aware of current events. Speech was fluent without paraphasic errors. The patient was able to follow 3 step commands. There was no left/right confusion. Recall was normal after distraction. CN II-XII: Visual polo were full to confrontation. Extraocular movements were intact with normal smooth pursuit. Saccades had normal speed. Pupils were equally reactive bilaterally. Fundoscopic examination was normal. Sensation was intact in V1, V2, V3 distribution. There was no facial asymmetry. Facial movements were normal. Muscles of mastication were normal. There was normal eye closure and lip closure against resistance. There was no hypomimia or hypophonia or dysarthria. Tongue and palate midline. Tongue strength was normal and there were no fasciculations. SCM/Trapezius 5/5. Motor: Normal bulk and tone. No cogwheel rigidity, myoclonus, or tremor. No pronator drift. Strengthwas 5/5 throughout the upper extremities including deltoids, biceps, triceps, wrist and finger flexors/extensors. Strength 5/5 throughout the lower extremities including hip, knee, and ankle flexors/ext ensors. Coordination: Rapid alternative movements showed normal frequency and amplitude, including fine finger movements, pronation/supination, and opening and closing of the fist. There was no dysmetria on nzxwvh-hpto-frjvpm or nyzf-uboz-cvwl. There was no truncal ataxia. Foot tapping was normal. Sensation: Intact to light touch, temperature, pinprick, vibration, and proprioception. No extinction to double simultaneous stimuli. Romberg was negative. Gait: Normal stance and stride. Symmetrical arm swing bilaterally. Able to tandem walk and stand on heels/toes. TT>65 mins of which majority was patient and family on counseling, education and coordination of care in the room, including my impression, the prognosis, discussion of tests and reasons for tests, coordination of care, and answering questions regarding the above, including effects and side effectsof medications, medication interactions, and changes to the medication regimen as above, and review of records from [facility] and [facility]. Counseling: All of the above was explained to the patient in lay language. The patient has verbalized a clear understanding of the discussion, asked appropriate questions, which have been answered to patient's apparent satisfaction. The patient is in agreement with the above plan. Video Visit: In light of the recent COVID-19 pandemic and social distancing precautions, today's in-person clinical visit was converted to a Video session. Video Consent: This visit was completed via video due to the restrictions of the COVID-19 pandemic. All issues were discussed and monitored over the video COVID-19 Education: At this time based on the clinical information given, the patient is not suspected of having COVID-19. Advised regarding social distancing and wearing a mask when outside the home, and risk factor stratification. Answered patient questions about COVID-19 including signs and symptoms, self home care and warning signs to look for especially the worsening of symptoms and respiratory distress. Advised if seeks care to call first to allow for proper isolation precautions. Dino Zamora M.D. Neurology and Neuromuscular Medicine [facility] documented in this encounter Plan of Treatment Not on filedocumented as of this encounter Results (ABNORMAL) C-Reactive Protein (02/27/2020 1:57 PM CDT) athologist Signature C-Reactive 1.0 (H) 0.0 - 0.7 02/27/2020 [facility] Protein mg/dL 2:31 PM CDT LABORATORY Specimen Anatomical Collection Method / Collection Time Recei jagdeep Time (Source) Location / Volume Laterality Blood Venipuncture / 02/27/2020 1:57 02/27/2020 1:57 Unknown PM CDT PM CDT Dino Zamora MD LAB_1 Performing Organization Address City/[facility]/ZIP Code Phon e Number [facility] [address] [place], [place] [phone] ESR (02/27/2020 1:57 PM CDT) [facility] gist Method Time Signature Sedimentation Rate 13 0 - 20 02/27/2020 [facility] mm/hr 3:00 PM CDT LABORATORY Specimen Anatomical Collection Method / Collection Time Recei jagdeep Time (Source) Location / Volume Laterality Blood Venipuncture / 02/27/2020 1:57 02/27/2020 1:57 Unknown PM CDT PM CDT Dino Zamora MD LAB_1 Performing Organization Address [facility] Phon e Number [facility] [address] [place] [address] Vitamin D 25-Hydroxy, Total (02/27/2020 1:57 PM CDT) athologist Signature Vitamin D, 31 30 - 80 02/27/2020 [facility] 25-OH, Total ng/mL 7:02 PM CDT LABORATORY Specimen Anatomical Collection Method / Collection Time Recei jagdeep Time (Source) Location / Volume Laterality Blood Venipuncture / 02/27/2020 1:57 02/27/2020 1:57 Unknown PM CDT PM CDT Dino Zamora MD LAB_1 Performing Organization Address [facility]/ZIP [facility] Phon e Number [facility] [address] [place] [address] Vitamin B12 Only (02/27/2020 1:57 PM CDT) athologist Signature Vitamin B12 448 213 [phone] 816 02/27/2020 [facility] pg/mL 7:02 PM CDT LABORATORY Specimen Anatomical Collection Method / Collection Time Recei jagdeep Time (Source) Location / Volume Laterality Blood Venipuncture / 02/27/2020 1:57 02/27/2020 1:57 Unknown PM CDT PM CDT Dino Zamora MD LAB_1 Performing Organization Address City/[facility] Phon e Number [facility] [address] [place] [address] documented in this encounter Visit Diagnoses Diagnosis Hemiplegic migraine without status migra inosus, not intractable - Primary Hemiplegic migraine, without mention of intractable migraine without mention of status migrainosus Secondary seizure disorder (HRC) Unspecified epilepsy without mention of intractable epilepsy Migraine with aura and without status mi grainosus, not intractable Migraine with aura, without mention of i ntractable migraine without mention of status migrainosus SALLY (generalized anxiety disorder) (HRC) Generalized anxiety disorder Vitamin D deficiency (HRC) Unspecified vitamin D deficiency Vitamin B12 deficiency (HRC) Other B-complex deficiencies documented in this encounter Care Teams Buckle Inspector Relationship Specialty Start Date End Date Felipa Shrestha MD PCP - General Family Practice 08/26/18 [address] [place] [address] documented as of this encounter
--- OUTSIDE RECORDS SUMMARY | 2022-06-24 15:12 | XMS_ITS | Encounter Summary ---
:1970 Author Organization [employer] Address [address] [address] Care Team Providers Name Role Phone Felipa Shrestha MD Primary Care Provider Encounter Details Date Type Department Care Team Description 02/27/2020 Lab Visit [facility] Essential hypertension; [id number] [employer] Hemiplegic migraine without status migrainosus, not intractable; [place] [address] Secondary seizure disorder ( HRC); [phone] Migraine with a ura and without status migrainosus, not intractable; SALLY (generalize d anxiety disorder); Vitamin D defic iency; Vitamin B12 def iciency Social History Tobacco Use Types Packs/Day Years Used Date Smoking Tobacco: Never Smokeless Tobacco: Never Alcohol Use Standard Drinks/Week Comments Yes 0 (1 standard drink = 0.6 oz pure alcoho l) 2 servings a month Sex Assigned at Date Recorded Not on file documented as of this encounter Plan of Treatment Not on filedocumented as of this encounter Procedures Procedure Name Priority Date/Time Associated Diagnosis Comme nts VITAMIN D Routine 02/27/2020 1:57 PM Hemiplegic migraine Re sults for this 25-HYDROXY, TOTAL CDT without status procedur e are in migrainosus, not the results intractable section. Secondary seizure disorder (HRC) Migraine with aura and without status migrainosus, not intractable SALLY (generalized anxiety disorder ) Vitamin D defici ency Vitamin B12 deficiency BASIC METABOLIC Routine 02/27/2020 1:57 PM Essential Result s for this PANEL CDT hypertension procedure are i n the results section. C-REACTIVE PROTEIN Routine 02/27/2020 1:57 PM Hemiplegic migra ine Results for this CDT without status procedure are in migrainosus, not the results intractable section. Secondary seizure disorder (HRC) Migraine with aura and without status migrainosus, not intractable SALLY (generalized anxiety disorder ) Vitamin D defici ency Vitamin B12 deficiency VITAMIN B12 ONLY Routine 02/27/2020 1:57 PM Hemiplegic migrain e Results for this CDT without status procedure are in migrainosus, not the results intractable section. Secondary seizure disorder (HRC) Migraine with aura and without status migrainosus, not intractable SALLY (generalized anxiety disorder ) Vitamin D defici ency Vitamin B12 deficiency ESR Routine 02/27/2020 1:57 PM Hemiplegic migraine Re sults for this CDT without status procedure are in migrainosus, not the results intractable section. Secondary seizure disorder (HRC) Migraine with aura and without status migrainosus, not intractable SALLY (generalized anxiety disorder ) Vitamin D defici ency Vitamin B12 deficiency documented in this encounter Results (ABNORMAL) C-Reactive Protein (02/27/2020 1:57 PM CDT) P athologist Signature C-Reactive 1.0 (H) 0.0 - 0.7 02/27/2020 [place] Protein mg/dL 2:31 PM CDT LABORATORY Specimen Anatomical Collection Method / Collection Time Recei jagdeep Time (Source) Location / Volume Laterality Blood Venipuncture / 02/27/2020 1:57 02/27/2020 1:57 Unknown PM CDT PM CDT Dino Zamora MD LAB_1 Performing Organization Address [facility]/ZIP Code Phon e Number [facility] [address] [place] [address] ESR (02/27/2020 1:57 PM CDT) Patholo gist Method Time Signature Sedimentation Rate 13 0 - 20 02/27/2020 [place] mm/hr 3:00 PM CDT LABORATORY Specimen Anatomical Collection Method / Collection Time Recei jagdeep Time (Source) Location / Volume Laterality Blood Venipuncture / 02/27/2020 1:57 02/27/2020 1:57 Unknown PM CDT PM CDT Dino Zamora MD LAB_1 Performing Organization Address City/[facility] Phon e Number [facility] [address] [place] [address] Vitamin D 25-Hydroxy, Total (02/27/2020 1:57 PM CDT) athologist Signature Vitamin D, 31 30 - 80 02/27/2020 [facility] 25-OH, Total ng/mL 7:02 PM CDT LABORATORY Specimen Anatomical Collection Method / Collection Time Recei jagdeep Time (Source) Location / Volume Laterality Blood Venipuncture / 02/27/2020 1:57 02/27/2020 1:57 Unknown PM CDT PM CDT Dino Zamora MD LAB_1 Performing Organization Address [facility] Phon e Number [facility] [address] [place] [phone] Vitamin B12 Only (02/27/2020 1:57 PM CDT) athologist Signature Vitamin B12 448 213 - 816 02/27/2020 [facility] pg/mL 7:02 PM CDT LABORATORY Specimen Anatomical Collection Method / Collection Time Recei jagdeep Time (Source) Location / Volume Laterality Blood Venipuncture / 02/27/2020 1:57 02/27/2020 1:57 Unknown PM CDT PM CDT Dino Zamora MD LAB_1 Performing Organization Address City/[facility] Phon e Number [facility] [address] [place] [phone] (ABNORMAL) Basic Metabolic Panel (02/27/2020 1:57 PM CDT) Analysis Performed At [facility] Signature Sodium 141 136 - 145 02/27/2020 [place] mmol/L 2:31 PM CDT LABORATORY Potassium 4.2 3.5 - 5.1 02/27/2020 [place] mmol/L 2:31 PM CDT LABORATORY Chloride 104 98 - 109 02/27/2020 [place] mmol/L 2:31 PM CDT LABORATORY CO2 27 20 - 29 02/27/2020 [place] mmol/L 2:31 PM CDT LABORATORY Anion Gap 10 7 - 16 02/27/2020 [place] mmol/L 2:31 PM CDT LABORATORY Calcium 9.8 8.4 - 10.4 02/27/2020 [place] mg/dL 2:31 PM CDT LABORATORY BUN 16 7 - 26 02/27/2020 [place] mg/dL 2:31 PM CDT LABORATORY Creatinine 1.00 0.55 - 02/27/2020 [place] 1.02 mg/dL 2:31 PM CDT LABORATORY GFR, Estimated >60 >60 02/27/2020 [place] mL/min/1.7 2:31 PM CDT LABORATORY 3m2 Glucose 126 (H) 70 - 100 02/27/2020 [place] mg/dL 2:31 PM CDT LABORATORY Comment: The given reference range is fo r the fasting state. Non-fasting reference range for glucose is 70 - 180 mg/dL. Hours Fasting 1 02/27/2020 2:31 PM CDT [facility] Specimen Anatomical Collection Method / Collection Time Recei jagdeep Time (Source) Location / Volume Laterality Blood Venipuncture / 02/27/2020 1:57 02/27/2020 1:57 Unknown PM CDT PM CDT Felipa Shrestha MD LAB_1 Performing Organization Address City/State/ZIP Code Phon e Number [facility] [address] [place] [address] documented in this encounter Visit Diagnoses Diagnosis Essential hypertension (HRC) Unspecified essential hypertension Hemiplegic migraine without status migra inosus, not intractable Hemiplegic migraine, without mention of [...] deficiencies documented in this encounter Care Teams Director Of Student Financial Services Relationship Specialty Start Date End Date Felipa Shrestha MD PCP - General Family Practice 08/26/[address] [place] [address] documented as of this encounter
--- OUTSIDE RECORDS SUMMARY | 2022-06-24 15:12 | XMS_ITS | Encounter Summary ---
:1970 Author Organization [facility] Address [address], [place] [address] Care Team Providers Name Role Phone Victor M Shrestha MD Primary Care Provider Reason for Visit Reason Comments Refill metFORMIN XR (GLUCOPHAGE XR) 500 MG 24 hour release tablet [Pharmacy Med Name: metFORMIN HCl ER Oral Tablet Extended Release 24 Hour 500 MG] Encounter Details Date Type Department Care Team Description 01/29/2021 Refill Victor M Hong MD Refill (metFORMIN XR Medicine [address] (GLUCOPHAGE XR) [address] [place], [place] 24 hour release tablet [place] [address] [Pharmacy Med Name: [phone] (Wo rk) metFORMIN HCl ER Oral Tablet Ex tended Release 24 Hour 500 MG] ) Social History Tobacco Use Types Packs/Day Years Used Date Smoking Tobacco: Never Smokeless Tobacco: Never Alcohol Use Standard Drinks/Week Comments Yes 0 (1 standard drink = 0.6 oz pure alcoho l) 2 servings a month Sex Assigned at Date Recorded Not on file documented as of this encounter Nursing Notes Janis Soto RN - 02/01/2021 9:13 AM CDT 90 day supply given per Emergency Refill Standing Order. Janis Soto RN 02/01/2021, 9:13 AM Requested Prescriptions Signed Prescriptions Disp Refills ??? metFORMIN XR (GLUCOPHAGE XR) 500 MG 24 hour release tablet 360 Tablet 0 Sig: Take 4 Tablets by mouth daily with breakfast. Authorizing Provider: VICTOR M SHRESTHA Ordering User: JANIS SOTO Interface, Out Surescripts Prov Query - 01/29/2021 2:02 AM CDT metFORMIN XR (GLUCOPHAGE XR) 500 MG 24 hour release tablet [Pharmacy Med Name: metFORMIN HCl ER OralTablet Extended Release 24 Hour 500 MG] Medication started: 09/21/2018 Last ordered by VICTOR M SHRESTHA: 01/22/2020 (373 days ago) QTY: 360, Refills: 3, Sig: take 4 tabletsby mouth daily with breakfast. (unchanged) -> The most recent order on 01/21/2021. -> HBA1C is overdue (performed over 12 months ago, required every 12 months) -> Refill x 1 month (courtesy refill, overdue for a(n) HBA1C check) Last qualifying visit: 08/02/2020 (with VICTOR M SHRESTHA) Next scheduled visit: None Cr: 1 mg/dL on 02/27/2020 HBA1C: 6.1 % on 01/23/2020 Powered by [employer] by [employer], Reference: [id number], 01/29/2021 2:02:15 AM MIGUELT, Marcellus:[facility] REFILL ([id number]) Interface, Out ServiceTitanscripts Prov Query - 01/29/2021 2:02 AM CDT The following lab order(s) may be associated with the following Patient Result Comment (Entered by Victor M Shrestha MD at 01/24/2020 10:01 AM): HGB A1C This has increased since August but is still not at the diabetic level. That being said, with your sugars being so elevated recently it is unclear to me what is going on. I recommend increasing the metfromin to 4 per day and repeating an a1c in 1 month. Please continue to check your sugars AM fastingperiodically and let me know in a few weeks if very elevated as we can always add additional meds. Please schedule a follow up visit with me in 1 month. Interface, Out MobileMD Query - 01/29/2021 2:02 AM CDT The following lab order(s) may be associated with the following Patient Result Comment (Entered by Victor M Shrestha MD at 02/27/2020 3:05 PM): BASIC METABOLIC PANEL I am pleased to inform you that your labs are normal. documented in this encounter Plan of Treatment Not on filedocumented as of this encounter Visit Diagnoses Not on filedocumented in this encounter Care Teams Senior Data Mining Analyst Relationship Specialty Start Date End Date Victor M Shrestha MD PCP - General Family Practice 08/26/[address] [place] [address] documented as of this encounter
--- OUTSIDE RECORDS SUMMARY | 2022-06-24 15:12 | XMS_ITS | Encounter Summary ---
:1970 [address] [facility] Address [address], [place] [address] Care Team Providers Name Role Phone Felipa Shrestha MD Primary Care Provider Reason for Visit Reason Onset Date Comments Refill 10/21/2021 SUMAtriptan (IMITREX ) 6 MG/0.5ML injection & frovatriptan (FROVA) 2.5 MG tablet Encounter Details Date Type Department Care Team Description 10/21/2021 Refill [facility] Renetta Zamora, Refill ([facility]Atriptan [facility] (IMITREX) 6 MG/0.5ML Neurology [address] injection & [address] [place], [place] frovatriptan (FROVA) [place] [address] 2.5 MG tablet) [phone] Social History Tobacco Use Types Packs/Day Years Used Date Smoking Tobacco: Never Smokeless Tobacco: Never Alcohol Use Standard Drinks/Week Comments Yes 0 (1 standard drink = 0.6 oz pure alcoho l) 2 servings a month Sex Assigned at Date Recorded Not on file documented as of this encounter Progress Notes Renetta Zamora MD - 10/26/2021 2:38 PM DIRECTOR CPG Addended by: RENETTA ZAMORA on: 10/26/2021 02:38 PM Modules accepted: Orders CTOR CPG Alexia Street RN - 10/23/2021 12:47 PM DIRECTOR CPG Addended by: ALEXIA STREET on: 10/23/2021 12:47 PM Modules accepted: Orders CTOR CPG documented in this encounter Nursing Notes Renetta Zamora MD - 10/26/2021 2:37 PM CST Reviewed and signed. Hemiplegic migraine without status migrainosus, not intractable - frovatriptan (FROVA) 2.5 MG tablet; Take 1 Tablet (2.5 mg) by mouth as needed (migraine). Dispense: 9 Tablet; Refill: 0 - SUMAtriptan (IMITREX STATDOSE REFILL) 6 MG/0.5ML injection; Inject 0.5 mL (6 mg) subcutaneously once as needed. May repeat in 2 hours. MAX 2 doses a day. Dispense: 2 mL; Refill: [address] RN - 10/23/2021 12:42 PM CST Rn contacted pharmacy re: SUMAtriptan (IMITREX) 6 MG/0.5ML Pt would like auto-injector instead of the vials. Pt last picked up prescription for auto-injector (by different Provider in 03/2020),pt has not pickedup rx written by Dr. Zamora for vials yet. RN pended rx for SUMAtriptan (IMITREX) 6 MG/0.5ML auto-injector for your review and signature. Alexia Street RN 10/23/2021, 12:42 PM CTOR CPG Edith Chisholm - 10/23/2021 10:49 AM CST Rec'd call from [facility] they are requesting that we send over Rx for the Immitrex Statdose. Please advise and send over Thanks! Edith Chisholm 10/23/2021, 10:50 AM CTOR CPG Vickie Asif - 10/22/2021 9:41 AM CST CA contacted patient and scheduled a video visit per patient's request on 01/06 at 3:[address] Sera Asif 10/22/2021, 9:41 AM Alexia Harvey RN - 10/21/2021 9:38 AM CST CA- please contact pt to schedule a video follow up appt with Provider. Medication reviewed on [employer] to ensure medication is not a controlled substance, approved for RNto order per protocol. Medication: frovatriptan (FROVA) 2.5 MG tablet Last date filled: 08/07/21 Last office visit with: Sera on 04/2021 Last note states: Hemiplegic/Atypical migraine Dizziness Seizure Disorder - I am not sure that you have a seizure disorder History of Vitamin B12 and D deficiency Muscle cramping, twitching -- restless legs -- related to low ferritin Ulcerative Colitis ??Likely Inflammation from diet is provoking migraines - you have identified that as a trigger. ??Tests: Labs look okay - there is low ferritin, low CK. Can remeasure iron and ferritin. ??Medications: Frovatriptan as needed for migraine Amitriptlyine 25 mg nightly Verapamil 240 mg nightly. ??Sumatriptan IM injection - autoinjector if you cannot swallow ??Iron every other day B complex supplement - 3 days a week Magnesium, Riboflavin ??Prednisone 20 mg x 5 days when needed for severe migraine Follow-up: 6 months Requested Prescriptions Signed Prescriptions Disp Refills ??? frovatriptan (FROVA) 2.5 MG tablet 9 Tablet 0 Sig: Take 1 Tablet (2.5 mg) by mouth as needed (migraine). Authorizing Provider: RENETTA ZAMORA Ordering User: ALEXIA STREET Refused Prescriptions Disp Refills ??? SUMAtriptan (IMITREX) 6 MG/0.5ML injection 2 mL 11 Sig: Inject 0.5 mL (6 mg) subcutaneously once as needed. Refused By: ALEXIA STREET Reason for Refusal: Duplicate Error Alexia Street RN 10/21/2021, 9:38 AM CTOR CPG Lorenzo Chavez - 10/21/2021 8:44 AM CST Fax received requesting SUMAtriptan (IMITREX) 6 MG/0.5ML injection & frovatriptan (FROVA) 2.5 MGtablet from [facility] Requested Prescriptions Pending Prescriptions Disp Refills ??? frovatriptan (FROVA) 2.5 MG tablet 9 Tablet 0 Sig: Take 1 Tablet (2.5 mg) by mouth once as needed for up to 1 dose. ??? SUMAtriptan (IMITREX) 6 MG/0.5ML injection 2 mL 11 Sig: Inject 0.5 mL (6 mg) subcutaneously once as needed. Lorenzo Chavez 10/21/2021, 8:46 AM CTOR CPG documented in this encounter Plan of Treatment Not on filedocumented as of this encounter Visit Diagnoses Diagnosis Muscle cramping Low ferritin level Other nonspecific findings on examinatio n of blood Hemiplegic migraine without status migra inosus, not intractable Hemiplegic migraine, without mention of intractable migraine without mention of status migrainosus documented in this encounter Care Teams Delicatessen Goods Stock Clerk Relationship Specialty Start Date End Date Felipa Shrestha MD PCP - General Family Practice 08/26/[address] [place] [address] [place] [address] documented as of this encounter
--- OUTSIDE RECORDS SUMMARY | 2022-06-24 15:12 | XMS_ITS | Encounter Summary ---
:1970 Author Organization [facility] Address [address], [place] [address] Care Team Providers Name Role Phone Felipa Shrestha MD Primary Care Provider Encounter Details Date Type Department Care Team Description 10/22/2020 Telephone [facility] Dino Acosta MD [facility] [address] [place] [address] [place] [address] [phone] Social History Tobacco Use Types Packs/Day Years Used Date Smoking Tobacco: Never Smokeless Tobacco: Never Alcohol Use Standard Drinks/Week Comments Yes 0 (1 standard drink = 0.6 oz pure alcoho l) 2 servings a month Sex Assigned at Date Recorded Not on file documented as of this encounter Nursing Notes Dino Zamora MD - 10/23/2020 10:51 AM CST Patient w/ hemiplegic migraine and seizure disoder. Needs follow up visit. Please offer IN PERSON or VIDEO VISIT on 11/12 morning thank you or VIDEO VISIT at 4pm on 11/13. Or another date. Dino Zamora MD Markie Crowley - 10/22/2020 11:38 AM CST Pt is calling regarding a form she'd like Dr. Zamora to fill out - pt has not been seen since 01/2020 - please advise if pt can be fit in for a PV or VV to discuss form and for a f/u - please call pt Markie Jerez 10/22/2020, 11:39 AM IO CAMERA OPERATOR documented in this encounter Plan of Treatment Not on filedocumented as of this encounter Visit Diagnoses Diagnosis Hemiplegic migraine without status migra inosus, not intractable - Primary Hemiplegic migraine, without mention of intractable migraine without mention of status migrainosus documented in this encounter Care Teams Five Piece Expansion Maker Hand Relationship Specialty Start Date End Date Felipa Shrestha MD PCP - General Family Practice 08/26/[address] [place] [address] documented as of this encounter
--- OUTSIDE RECORDS SUMMARY | 2022-06-24 15:12 | XMS_ITS | Encounter Summary ---
:1970 Author Organization [facility] Address [address], [place] [address] Care Team Providers Name Role Phone Felipa Shrestha MD Primary Care Provider Reason for Visit Reason Comments Refill frovatriptan (FROVA) 2.5 MG tablet Encounter Details Date Type Department Care Team Description [facility] (FROVA) 2.5 MG tablet) Neurology [address] [place] [phone] Social History Tobacco Use Types Packs/Day Years Used Date Smoking Tobacco: Never Smokeless Tobacco: Never Alcohol Use Standard Drinks/Week Comments Yes 0 (1 standard drink = 0.6 oz pure alcoho l) 2 servings a month Sex Assigned at Date Recorded Not on file documented as of this encounter Nursing Notes Alexia Street, RN - 12/16/2021 9:22 AM CDT Medication reviewed on [employer] to ensure medication is not a controlled substance, approved for RNto order per protocol. Medication: frovatriptan (FROVA) 2.5 MG tablet Last date filled: 10/21/2021 Last office visit with: Sera on 04/2021 Last note states: Hemiplegic/Atypical migraine Dizziness Seizure Disorder - I am not sure that you have a seizure disorder History of Vitamin B12 and D deficiency Muscle cramping, twitching -- restless legs -- related to low ferritin Ulcerative Colitis ??Likely Inflammation from diet is provoking migraines - you have identified that as a trigger. ??Tests:??Labs look okay - there is low ferritin, low CK. ??Can remeasure iron and ferritin. ??Medications:?? Frovatriptan as needed for migraine Amitriptlyine 25 mg nightly Verapamil 240 mg nightly. ??Sumatriptan IM injection - autoinjector if you cannot swallow ??Iron every other day B complex supplement - 3 days a week Magnesium, Riboflavin ??Prednisone 20 mg x 5 days when needed for severe migraine Follow-up: 01/06/2022 Requested Prescriptions Signed Prescriptions Disp Refills ??? frovatriptan (FROVA) 2.5 MG tablet 9 Tablet 0 Sig: Take 1 Tablet (2.5 mg) by mouth as needed (migraine). Authorizing Provider: RENETTA NOVA Ordering User: ALEXIA STREET RN 12/16/2021, 9:23 AM documented in this encounter Plan of Treatment Not on filedocumented as of this encounter Visit Diagnoses Diagnosis Hemiplegic migraine without status migra inosus, not intractable Hemiplegic migraine, without mention of intractable migraine without mention of status migrainosus documented in this encounter Care Teams Ship Fitter Relationship Specialty Start Date End Date Felipa Shrestha MD PCP - General Family Practice 08/26/[address] [place] [address] documented as of this encounter
--- OUTSIDE RECORDS SUMMARY | 2022-06-24 15:12 | XMS_ITS | Encounter Summary ---
:1970 Author [facility] Address [address] [address] Care Team Providers Name Role Phone Felipa Shrestha MD Primary Care Provider Reason for Visit Reason Comments Pharmacy Encounter Details Date Type Department Care Team Description 01/29/2021 Telephone [place] Felipa French MD Pharmacy [address] [place] [address] [place] [address] [phone] (Wo rk) Social History Tobacco Use Types Packs/Day Years Used Date Smoking Tobacco: Never Smokeless Tobacco: Never Alcohol Use Standard Drinks/Week Comments Yes 0 (1 standard drink = 0.6 oz pure alcoho l) 2 servings a month Sex Assigned at Date Recorded Not on file documented as of this encounter Nursing Notes Tamara Reed - 01/31/2021 10:47 AM CDT Called and LM for patient advising of Providers recommendations, call back number [phone] given. [facility] and verified the information to them. Felipa Gonzalez MD - 01/30/2021 3:44 PM CDT It appears her insurance will only cover the is if she has diabetes which she does not. She is due for a follow-up visit regarding her blood sugars/med check, we can discuss further at that time. Also, [facility] has a meter available for purchace and lancets and strips which she could get. They are much less expensive out of pocket than the ones she currently uses. Felipa Henry RN - 01/29/2021 3:45 PM CDT Clinician Action: Form/Letter completion Clinician Next Step: Route to International Account Executive pool and Fax completed form back to pharmacy. Specific Request(s): Spoke with [facility] [place] [facility]. [facility] wanting to verify if PCP received faxed form that needs to be completed and faxed back regarding diagnosis for Accu-chek Guide Test Strips and Accu-Chek Softclix Lancets. Patient has Medicare Part B and in order for Medicare Part B to cover Lancets and Test Strips, associated diagnosiscode needs to be 11.8. Please advise. 2. Patient is also needing Softclix lancets prescription sent to pharmacy. Again associated diagnosis would need to be E11.8 for coverage through Medicare Part B. Requested Prescriptions Pending Prescriptions Disp Refills ??? lancets (ACCU-CHEK SOFTCLIX) 100 Each 3 Sig: Use 1 Each to test daily. ??? blood glucose (ACCU-CHEK GUIDE) test strip 100 Strip 3 Sig: Use 1 Each to test daily. Ely Denny - 01/29/2021 3:42 PM CDT Medications - Pharmacy Calls Is your question or concern about a Prior Authorization? No. What is the question or concern? states calling to check on status of form faxed over to clinic regarding Rx, please advise. Transferred to triage What is the name and dose of the medication? lncets (ACCU-CHEK FASTCLIX) Who prescribed it? (include first & last name) Felipa Shrestha MD Please route to: Triage Pool (If patient is waiting, route as high priority) documented in this encounter Plan of Treatment Not on filedocumented as of this encounter Visit Diagnoses Diagnosis Pre-diabetes Other abnormal glucose documented in this encounter Care Teams Drum Puller Relationship Specialty Start Date End Date Felipa Shrestha MD PCP - General Family Practice 08/26/18 [address] [place] [address] documented as of this encounter
--- OUTSIDE RECORDS SUMMARY | 2022-06-24 15:12 | XMS_ITS | Encounter Summary ---
:1970 Author [facility] Address [address] [address] Care Team Providers Name Role Phone Victor M Shrestha MD Primary Care Provider Reason for Visit Reason Comments Refill frovatriptan (FROVA) 2.5 MG tablet [Pharmacy Med Name: Frovatriptan Succinate Oral Tablet 2.5 MG] Encounter Details Date Type Department Care Team Description 10/16/2021 Refill Victor M Hong, Refill (frovatriptan Medicine (FROVA) 2.[address] MG tablet [address] [Pharmacy Med Name: [place] [address] [place] Frovatriptan Succinate [phone] Oral Tablet 2.5 MG]) Social History Tobacco Use Types Packs/Day Years Used Date Smoking Tobacco: Never Smokeless Tobacco: Never Alcohol Use Standard Drinks/Week Comments Yes 0 (1 standard drink = 0.6 oz pure alcoho l) 2 servings a month Sex Assigned at Date Recorded Not on file documented as of this encounter Nursing Notes Alexia Myers - 10/20/2021 2:24 PM CST Medication Refill - Overdue for Visit Called patient, was: Successful in reaching patient We recently received a refill request for one of your medications. In order to ensure your medication is safe and effective, your clinician needs to see you at least yearly for an office visit. May I help you schedule that office visit? Patient is due for a(n): office visit Patient no longer receiving care at [facility] Frontline: Route to Refill [facility] ([phone] [id number]) CAD DRAFTSMAN Ericka Fong RN - 10/17/2021 4:37 PM CST Further Assistance Needed on Refill from Acoustical Installer Patient is overdue for Office visit. -> An office visit is overdue (performed 15 months ago, required every 12 months). Last qualifying visit: 08/02/2020 (with VICTOR M SHRESTHA) Next scheduled visit: None Please call patient to schedule a Office/Video Visit and document using .[email or web address]. After attemptingto schedule patient: Please route to: Victor M Shrestha MD Requested Prescriptions Pending Prescriptions Disp Refills frovatriptan (FROVA) 2.5 MG tablet [Pharmacy Med Name: Frovatriptan Succinate Oral Tablet 2.5 MG] 9Tablet Sig: Take 1 Tablet by mouth once as needed for up to 1 dose. CAD DRAFTSMAN Lynette, Out Surescripts Prov Query - 10/16/2021 1:28 PM CST frovatriptan (FROVA) 2.5 MG tablet [Pharmacy Med Name: Frovatriptan Succinate Oral Tablet 2.5 MG] Medication started: 09/21/2018 Last ordered by VICTOR M SHRESTHA: 08/07/2021 (70 days ago) QTY: 9, Refills: 0, Sig: take 1 tablet by mouth once as needed for up to 1 dose. (unchanged) -> An office visit is overdue (performed 15 months ago, required every 12 months). 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
--- OUTSIDE RECORDS SUMMARY | 2022-06-24 15:12 | XMS_ITS | Encounter Summary ---
:1970 Author Organization [email or web address] Address [address], [place] [address] Care Team Providers Name Role Phone Felipa Shrestha MD Primary Care Provider Reason for Visit Reason Comments PHARMACIST COUNSELING Encounter Details Date Type Department Care Team Description 03/04/2020 Telephone Felipa Hong, PHARMA CIST COUNSELING Medicine [address] [facility] [place] [address] MARYJANE [place] [phone] Social History Tobacco Use Types Packs/Day Years Used Date Smoking Tobacco: Never Smokeless Tobacco: Never Alcohol Use Standard Drinks/Week Comments Yes 0 (1 standard drink = 0.6 oz pure alcoho l) 2 servings a month Sex Assigned at Date Recorded Not on file documented as of this encounter Nursing Notes Manny De La Cruz LPN - 03/06/2020 2:30 PM CDT Left pharmacy message. Felipa Shrestha MD - 03/06/2020 12:58 PM CDT Statin is only recommended if she has diabetes, not pre diabetes. Kiesha Dooley RN - 03/04/2020 11:37 AM CDT Clinician Action: Input needed regarding Medication Clinician Next Step: Close encounter Specific Request(s): 1. Start a Statin? Spoke with [facility] pharmacist. Because the patient was prescribed Metformin for Pre- diabetes, Insurance company sent inquiry stating that a Statin is also indicated in pre-diabetics on Metformin. Requesting a note to PCP. Ashley Calloway - 03/04/2020 11:32 AM CDT Medications - Pharmacy Calls Is your question or concern about a Prior Authorization? No. What is the question or concern? Questions regarding stating a statin. What is the name and dose of the medication? - Who prescribed it? (include first & last name) Felipa Shrestha MD Please route to: Triage Pool (If patient is waiting, route as high priority) documented in this encounter Plan of Treatment Not on filedocumented as of this encounter Visit Diagnoses Not on filedocumented in this encounter Care Teams Bonsai Tender Relationship Specialty Start Date End Date Felipa Shrestha MD PCP - General Family Practice 08/26/[address] [place] [address] documented as of this encounter
--- OUTSIDE RECORDS SUMMARY | 2022-06-24 15:12 | XMS_ITS | Encounter Summary ---
:1970 Author Organization [facility] Address [address], [place] [address] Care Team Providers Name Role Phone Felipa Shrestha MD Primary Care Provider Reason for Visit Reason Comments ERRONEOUS ENTRY Encounter Details Date Type Department Care Team Description 10/23/2021 Telephone [facility] Shayne Jara ERRONEOUS ENTRY [facility] Neu[facility] MD Gillian [address] [place] [address] [place] [address] [phone] (Wo rk) Social History Tobacco Use Types Packs/Day Years Used Date Smoking Tobacco: Never Smokeless Tobacco: Never Alcohol Use Standard Drinks/Week Comments Yes 0 (1 standard drink = 0.6 oz pure alcoho l) 2 servings a month Sex Assigned at Date Recorded Not on file documented as of this encounter Nursing Notes Mando Cordoba - 10/23/2021 4:46 PM CST TE NISTRATIVE ANALYST documented in this encounter Plan of Treatment Not on filedocumented as of this encounter Visit Diagnoses Not on filedocumented in this encounter Care Teams Ring Rolling Machine Operator Relationship Specialty Start Date End Date Felipa Shrestha MD PCP - General Family Practice 08/26/18 [address] [place] [address] documented as of this encounter
--- OUTSIDE RECORDS SUMMARY | 2022-06-24 15:12 | XMS_ITS | Encounter Summary ---
:1970 Author Organization [facility] Address [address] [address] Care Team Providers Name Role Phone Victor M Shrestha MD Primary Care Provider Reason for Visit Reason Comments Refill verapamil (VERELAN) 240 MG 2 4 hour release capsule [Pharmacy Med Name: Verapamil HCl ER Oral Capsul e Extended Release 24 Hour 240 MG] Encounter Details Date Type Department Care Team Description 04/20/2020 Refill [facility] Victor M Shrestha MD Refill (verapamil Medicine [address] (VERELAN) 240 MG 24 hour [address] [place], [place] [address] [Pharmacy Med Name: [phone] (Wo rk) Verapamil HCl ER Oral Capsule E xtended Release 24 Hour 240 MG] ) Social History Tobacco Use Types Packs/Day Years Used Date Smoking Tobacco: Never Smokeless Tobacco: Never Alcohol Use Standard Drinks/Week Comments Yes 0 (1 standard drink = 0.6 oz pure alcoho l) 2 servings a month Sex Assigned at Date Recorded Not on file documented as of this encounter Nursing Notes Janis Jiménez RN - 04/23/2020 11:46 AM CDT Further Assistance Needed on Refill from Clinician RN reviewed. Medication ordered for short term. Please advise if half-way supply is appropriate Last qualifying visit: 02/22/2020 Last ordered by RENETTA NOVA K: 02/20/2020 Review pended order for accuracy and sign if appropriate and Document if appointment is needed for further refills Requested Prescriptions Pending Prescriptions Disp Refills ??? verapamil (VERELAN) 240 MG 24 hour release capsule [Pharmacy Med Name: Verapamil HCl ER Oral Capsule Extended Release 24 Hour 240 MG] 90 Capsule 3 Sig: Take 1 Capsule by mouth every evening. Interface, Out Pawel Prov Query - 04/20/2020 2:02 AM CDT verapamil (VERELAN) 240 MG 24 hour release capsule [Pharmacy Med Name: Verapamil HCl ER Oral CapsuleExtended Release 24 Hour 240 MG] Medication started: 09/21/2018 Last ordered by RENETTA NOVA K: 02/20/2020 (60 days ago) QTY: 90, Refills: 0, Sig: take 1 capsuleby mouth every evening. (unchanged) -> The requested medication order is for a different provider than the most recent renewal. 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
--- OUTSIDE RECORDS SUMMARY | 2022-06-24 15:12 | XMS_ITS | Encounter Summary ---
:1970 Author Organization [facility] Address [address], [place] [address] Care Team Providers Name Role Phone Felipa Shrestha MD Primary Care Provider Reason for Visit Reason Comments Forms Physician Statement of Andrae nued Disability Encounter Details Date Type Department Care Team Description 12/10/2020 Telephone [facility] Dino Zamora Forms ([facility] MD Gillian Statement of Continued Neurology [address] Disability) [address] [place] [address] [phone] Social History Tobacco Use Types Packs/Day Years Used Date Smoking Tobacco: Never Smokeless Tobacco: Never Alcohol Use Standard Drinks/Week Comments Yes 0 (1 standard drink = 0.6 oz pure alcoho l) 2 servings a month Sex Assigned at Date Recorded Not on file documented as of this encounter Nursing Notes Alexia Shaikh RN - 12/12/2020 1:59 PM CDT LVM to let pt know that form was filled out and mailed per instructions on form. Copy of signed form made and placed in scanning bin. Alexia Shaikh RN 12/12/2020, 2:00 PM Dino Zamora MD - 12/11/2020 5:21 PM CDT This was filled out. The primary encounter diagnosis was Secondary seizure disorder (HRC). A diagnosis of Hemiplegic migraine without status migrainosus, not intractable was also pertinent to this visit. Alexia Shaikh RN - 12/10/2020 4:52 PM CDT Form placed in Dr. Zamora's in box for review and signature. Alexia Shaikh RN 12/10/2020, 4:54 PM Felipa Hoyos - 12/10/2020 1:00 PM CDT Images from the original note were not included. 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
--- OUTSIDE RECORDS SUMMARY | 2022-06-24 15:12 | XMS_ITS | Encounter Summary ---
:1970 Author Organization [facility] Address [address], [place] [address] Care Team Providers Name Role Phone Felipa Shrestha MD Primary Care Provider Reason for Referral (Routine) - Closed Specialty Diagnoses / Procedures Referred By Contact Refer red To Contact Diagnoses Chest pain, unspecified type Felipa Shrestha MD Procedures Stress Echocardiogram [address] [place] [address] Referral ID Status Reason Start Date Expiration Date Visits Requ ested Visits Authorized [id number] Closed 02/22/2020 05/23/2021 1 1 Reason for Visit Reason Onset Date Comments Follow-up HTN Video Visit 02/22/2020 Encounter Details Date Type Department Care Team Description 02/22/2020 Telemedicine [facility] Felipa Shrestha, Chest pain, unspecified type (Primary Dx); Medicine Prolonged QT interval; [address] [place] Essential hypertension; [place] [address] [place] SOB (shortness of breath); [phone] [id number] Morbid obesity with BMI of 40.0-44.9, ad ult (HRC); [phone] Pre-diabetes (Work) Social History Tobacco Use Types Packs/Day Years Used Date Smoking Tobacco: Never Smokeless Tobacco: Never Alcohol Use Standard Drinks/Week Comments Yes 0 (1 standard drink = 0.6 oz pure alcoho l) 2 servings a month Sex Assigned at Date Recorded Not on file documented as of this encounter Patient Instructions Patient InstructionsFelipa Shrestha MD - 02/22/2020 3:15 PM CDT Try omeprazole x2 weeks, if the chest pain is not resolved, then have the stress test. If severe chest pain to ER. Add norvasc. Start with 1/2 tablet for the 1st week. Then increase to 1 full tablet. Continue increasing dose by 1/2 tablet each week until your blood pressure is less than 130/90 for most of the time.Maximum Norvasc dose is 10 mg. EKG lorna please GOALS FOR HEALTHY WEIGHT LOSS 1. Try to get 7.5 to 8 hours of sleep each night. Sleep deprivation causes people to eat more, and people who sleep adequately lose more fat weight. - go to bed same time each night - no caffeine after 2pm - get 15 minutes of sunlight each day - don't exercise 4 hours before bed - avoid alcohol 3 hours before bed - avoid any screen time (TV, smartphone, computer, ipad, etc) 2 hours before bed 2. Drink 8 glasses (8oz) of water a day. Try to drink one glass BEFORE each meal. 3. Eat three meals daily. Your first meal of the day should include protein such as one of the following: - natural (without added sugar) peanut or almond butter (2 tablespoons) - cottage cheese (1/2 cup) - Nigerian yogurt (1/2 cup) - I recommend Fage brand -Eggs (one extra large or two medium) -Esau of Flax seeds (1 tabelspoon) - in a smoothie or on yogurt, for example 4. Exercise for a minimum of 150 minutes a week (about 20 minutes a day) or try to work up to 10,000steps a day on a pedometer. For some patients, 60-90 minutes of moderate exercise is required for weight loss or weight maintenance. - Wear the pedometer for a few days to see where you are at. Then increase steps by 500 each week to a goal of 10,000 /day - Omron pedometer from Re.nooble (buy online or in person). http://Electric State Of Mind Entertainment.Trellia Networks/ - FitBit (accelerometer) www.Optasite.com or at [employer] (allows you to track online) -Medicalis Fuelband (accelerometer) http://www.BoxVentures.ABS Medical/us/en_us/c/nikeplus-fuelband 5. Try to eat 5 or more vegetables and fruits total each day. 6. Add 1 oz or one closed handful of nuts to your diet each day as a snack or on salad 7. Practice mindful eating. References: - www.mindlesseating.org - Mindful Eating by Dr J Carlos Duque - www.eatingSquare1 Energy by Maki Cervantes. 8. Try to have protein with each meal. 15-30 grams 3-4 times a day. Lean meat, cheese, yogurt, cottage cheese, beans, nuts, and soy. 9. Track meals and activity (online, paper, or smart phone applications). Tracking your food intake can help you eat more mindfully. Some patients who start tracking their food eat up to 20% less than they did previously. Try out one of the following apps for tracking food intake and exercise: - Phone apps: Kimera Systems, Second Porch Net Diary, Lose it!, CultureAlley, Teklatech - Online: www.LilLuxe.gov/supertracker/ www.fitbit.ABS Medical www.Battlepro www.Spotify www.flo.do www.foodMELA Sciences.ABS Medical If you use the electronic method of tracking (instead of paper), be sure to print out your food logprior to your next visit with the construction management instructor or physician and bring it with you. 10. Decrease stress by practicing meditation, self hypnosis or yoga to improve your mind-body connection 11. Add a probiotic supplement to your diet daily. These are over the counter and you can ask your pharmacist about their particular selection documented in this encounter Progress Notes Felipa Shrestha MD - 02/22/2020 3:15 PM CDT Subjective: Today's visit with Sandra was conducted as a scheduled video visit. She was seen in the emergency room at [place] January 24 for syncope. They felt this was possibly relatedto her new blood pressure medicine which was started 4 days prior. Lisinopril. Her EKG also showed prolonged QTC. They had her reduce her amitriptyline by 1/2. She stopped the lisinopril, kept the HCTZ. Pulse is 110- 120. She is usually 100-106. No further syncope or presyncope. She gets winded easily on the stairs, lasts about 1 min. When she bends over and then stands up she gets dizzy. Some chest pain, like a burning when you breathe in cold air. Lasts a few hours and then resolves. Told the ER MD that. Workup was neg. CP has been worsening over the past year. Has never had a stress echo. She gets it before a migraine, she thought it was like an aura. Also gets the CP w/omigraine. Does not feel like her usual heart burn. This is lower in the chest rather than in her neck like her previous reflux. The CP comes on 2-3 x per week. It does not come on with exertion. She wonders if this is wt related. Has lost 12#. Metformin: is back down to 3 tablets, 4 were making her nauseated. Sugars have been 110 or so. BPs are 135-165/90-100. No new PÉREZ. Is currently only taking hydrochlorothiazide 25 mg. Objective: There were no vitals taken for this visit. Assessment/Plan: Chest pain, unspecified type She will try omeprazole for 2 weeks, if that does not resolve her symptoms, she will have the stressecho. She reports a negative workup in the emergency room for this pain in the past. She will present for EKG within the next couple of days to check on her QTC. If any chest pain episodes that are different than her normal, she will present to the emergency room. - Stress Echocardiogram; Future - omeprazole (PRILOSEC) 20 MG capsule; Take 1 Capsule by mouth daily. Take 1 hour before a meal. Prolonged QT interval - ECG 12 Lead Outpatient Essential hypertension Uncontrolled, add Norvasc. She will started 2.5 mg and increase by 2.5 mg per week until blood pressures are less than 130/90 for the most part. Maximum being 10 mg. - amLODIPine (NORVASC) 5 MG tablet; Take 1 Tablet by mouth daily. SOB (shortness of breath) Likely related to deconditioning given that it resolves rapidly Morbid obesity with BMI of 40.0-44.9, adult (HRC) She is planning to work on weight loss, see AVS Pre-diabetes Sugars are well controlled Clinician located at home. Patient located at home Billing based on: Complexity Felipa Shrestha MD documented in this encounter Plan of Treatment Not on filedocumented as of this encounter Procedures Procedure Name Priority Date/Time Associated Comments Diagnosis ECG 12 LEAD Routine 02/27/2020 2:01 PM Prolonged QT Results f or this OUTPATIENT CDT interval procedure are i n the results section. documented in this encounter Results ECG 12 Lead Outpatient (02/27/2020 2:01 PM CDT) P athologist Signature Ventricular Rate 95 BPM [facility] Atrial Rate 95 BPM [facility] P-R Interval 144 ms [facility] QRS Duration 76 ms [facility] QT 370 ms [facility] QTc 464 ms [facility] P [place] 62 degrees [facility] R [place] -14 degrees [facility] T [place] 40 degrees [facility] Specimen (Source) Anatomical Collection Method Collection Time Re ceived Time Location / / Volume Laterality 02/27/2020 2:01 PM CDT Narrative [facility] - 02/27/2020 4:14 PM CDT Sinus rhythm Normal ECG No previous ECGs available Confirmed by CINDY GOODWIN ([id number]) on 4:14:33 PM Procedure Note Cindy Goodwin MD - 02/27/2020 Sinus rhythm Normal ECG No previous ECGs available Confirmed by CINDY GOODWIN ([id number]) on 4:14:33 PM Felipa Shrestha MD PN ECG ORDERABLES Performing Organization Address City/State/ZIP Code Phon e Number [facility] [address] [place] [address] documented in this encounter Visit Diagnoses Diagnosis Chest pain, unspecified type - Primary Prolonged QT interval Nonspecific abnormal electrocardiogram ( ECG) (EKG) Essential hypertension (HRC) Unspecified essential hypertension SOB (shortness of breath) Shortness of breath Morbid obesity with BMI of 40.0-44.9, ad ult (HRC) Pre-diabetes Other abnormal glucose documented in this encounter Care Teams Manager Mass Relationship Specialty Start Date End Date Felipa Shrestha MD PCP - General Family Practice 08/26/[address] [place] [address] documented as of this encounter
--- OUTSIDE RECORDS SUMMARY | 2022-06-24 15:12 | XMS_ITS | Encounter Summary ---
:1970 Author Organization [facility] Address [address] [place] [address] Care Team Providers Name Role Phone Felipa Shrestha MD Primary Care Provider Reason for Visit Reason Comments Lab Orders Needed Encounter Details Date Type Department Care Team Description 05/05/2021 Telephone [facility] Vivek Zamora K, Lab Orders Needed Center Neurology [address] [place] [address] [place], [place] [phone] (Wo rk) Social History Tobacco Use Types Packs/Day Years Used Date Smoking Tobacco: Never Smokeless Tobacco: Never Alcohol Use Standard Drinks/Week Comments Yes 0 (1 standard drink = 0.6 oz pure alcoho l) 2 servings a month Sex Assigned at Date Recorded Not on file documented as of this encounter Nursing Notes Alexia Shaikh RN - 05/05/2021 2:39 PM CDT RN spoke with patient and relayed provider's message. Patient verbalizes understanding. Alexia Shaikh RN 05/05/2021, 2:39 PM Dino Zamora MD - 05/05/2021 2:29 PM CDT We can keep appt tomorrow. I have re-ordered labs. Alexia Shaikh RN - 05/05/2021 2:[address] Zamora- please advise if you would like pt to still get the Vit B6, Vit B12, and Ferritin labs that you ordered at last visit. Please advise on pt's visit tomorrow if labs have not been completed. Alexia Shaikh RN 05/05/2021, 2:11 PM Vickie Asif - 05/05/2021 10:55 AM CDT Patient called stating she was to have lab orders done two months ago but has not had them done yet She is requesting new lab orders be placed as she thought current lab orders were and is requesting to know if Dr. Zamora still wishes to see her tomorrow via her video visit if she has not yet had her labs done Vickie Asif 05/05/2021, 10:56 AM documented in this encounter Plan of Treatment Not on filedocumented as of this encounter Results Ferritin (05/06/2021 9:18 AM CDT) P athologist Signature Ferritin 47 9 - 204 05/06/2021 [facility] ng/mL 2:15 PM CDT LABORATORY Specimen Anatomical Collection Method / Collection Time Recei jagdeep Time (Source) Location / Volume Laterality Blood Venipuncture / 05/06/2021 9:18 05/06/2021 9:18 Unknown AM CDT AM CDT Dino Zamora MD LAB_1 Performing Organization Address City/State/ZIP Code Phon e Number [facility] [address] [place] [address] Vitamin B12 Only (05/06/2021 9:18 AM CDT) P athologist Signature Vitamin B12 363 213 - 816 05/06/2021 [facility] pg/mL 2:15 PM CDT LABORATORY Specimen Anatomical Collection Method / Collection Time Recei jagdeep Time (Source) Location / Volume Laterality Blood Venipuncture / 05/06/2021 9:18 05/06/2021 9:18 Unknown AM CDT AM CDT Dino Zamroa MD LAB_1 Performing Organization Address City/[facility]/ZIP Code Phon e Number [facility] [address] [place] [address] Vitamin B6 (8Hr Fast Recommended) (05/06/2021 9:18 AM CDT) athologist Signature Vitamin B6 50.5 20.0 - 05/09/2021 [employer] 125.0 10:05 PM CDT nmol/L Comment: INTERPRETIVE INFORMATION: Vitamin B6 (Py ridoxal 5-Phosphate) Pyridoxal 5'-phosphate measured in a spe cimen collected following an 8-hour or overnight fast accurately i ndicates vitamin B6 nutritional status. Non-fasting specimen concentration reflects recent vitamin intake. This test was developed and its performa nce characteristics determined by [facility]. It has not been cleared or approved by the [place] Food and Drug Adminis tration. This test was performed in a CLIA certified laboratory and is intended for clinical purposes. 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
--- OUTSIDE RECORDS SUMMARY | 2022-06-24 15:12 | XMS_ITS | Encounter Summary ---
:1970 Author Organization [facility] Address [address] [address] Care Team Providers Name Role Phone Felipa Shrestha MD Primary Care Provider Reason for Visit Reason Comments Refill Frovatriptan 2.5 mg tab Encounter Details Date Type Department Care Team Description 01/05/2022 Telephone [facility] Renteta Zamora Refill ( ovatriptan [facility] MD Gillian 2.5 mg tab) Neurology [address] [place] [phone] Social History Tobacco Use Types Packs/Day Years Used Date Smoking Tobacco: Never Smokeless Tobacco: Never Alcohol Use Standard Drinks/Week Comments Yes 0 (1 standard drink = 0.6 oz pure alcoho l) 2 servings a month Sex Assigned at Date Recorded Not on file documented as of this encounter Nursing Notes Alexia Street RN - 01/05/2022 11:36 AM CDT Medication reviewed to ensure medication is not a controlled substance, approved for RN to order perprotocol. Medication: frovatriptan (FROVA) 2.5 MG tablet Last date filled: 12/16/2021 Last office visit with: Sera on 04/2021 Last office visit with:??Sera??on 04/2021 Last note states:??Hemiplegic/Atypical migraine Dizziness Seizure Disorder - I am [...] 5 days when needed for severe migraine Requested Prescriptions Signed Prescriptions Disp Refills ??? frovatriptan (FROVA) 2.5 MG tablet 9 Tablet 1 Sig: Take 1 Tablet (2.5 mg) by mouth as needed (migraine). Authorizing Provider: RENETTA ZAMORA Ordering User: ALEXIA STREET RN 01/05/2022, 11:36 AM Cristal Zhong - 01/05/2022 10:27 AM CDT Pt is requesting a 2 mo supply of frovatriptan 2.5mg (about 9 tabs for a month), she has 2 pills left, she is requesting this as her insurance is no longer contracted with [employer] and she is looking for a new provider, she would like a refill of this until she can be seen, thanks! Requested Prescriptions Pending Prescriptions Disp Refills ??? frovatriptan (FROVA) 2.5 MG tablet 9 Tablet 0 Sig: Take 1 Tablet (2.5 mg) by mouth as needed (migraine). Cristal Zhong 01/05/2022, 10:28 AM documented in this encounter Plan of Treatment Not on filedocumented as of this encounter Visit Diagnoses Diagnosis Hemiplegic migraine without status migra inosus, not intractable Hemiplegic migraine, without mention of intractable migraine without mention of status migrainosus documented in this encounter Care Teams Aircraft Systems Technician Relationship Specialty Start Date End Date Felipa Shrestha MD PCP - General Family Practice 08/26/[address] [place] [address] documented as of this encounter
--- OUTSIDE RECORDS SUMMARY | 2022-06-24 15:12 | XMS_ITS | Encounter Summary ---
:1970 Author [facility] Address [address] [address] Care Team Providers Name Role Phone Felipa Shrestha MD Primary Care Provider Encounter Details Date Type Department Care Team Description 02/27/2020 [facility] Only [facility], Internal Radiology Processing [address] [facility]. [place], [place] [address] [place] [place] [phone] Social History Tobacco Use Types Packs/Day Years Used Date Smoking Tobacco: Never Smokeless Tobacco: Never Alcohol Use Standard Drinks/Week Comments Yes 0 (1 standard drink = 0.6 oz pure alcoho l) 2 servings a month Sex Assigned at Date Recorded Not on file documented as of this encounter Plan of Treatment Pending Results Name Type Priority Associated Diagnoses Date/Ti me ECG 12 Lead Outpatient EKG Routine 02/26 2:01 PM CDT documented as of this encounter Procedures Procedure Name Priority Date/Time Associated Diagnosis Comme nts ECG 12 LEAD OUTPATIENT Routine 02/27/2020 2:01 PM CDT Procedure Note - 02/27/2020 2:01 PM CDTThis note is in progress. Formatting of this note migh t be different from the original. Sinus rhythm Normal ECG No previous ECGs available documented in this encounter Visit Diagnoses Not on filedocumented in this encounter Care Teams Foreign Banknote Teller Trader Relationship Specialty Start Date End Date Felipa Shrestha MD PCP - General Family Practice 08/26/18 [address] [place] [address] documented as of this encounter
--- OUTSIDE RECORDS SUMMARY | 2022-06-24 15:12 | XMS_ITS | Encounter Summary ---
:1970 Author [facility] Address [address], [place] [address] Care Team Providers Name Role Phone Victor M Shrestha MD Primary Care Provider Reason for Visit Reason Comments Refill ACCU-CHEK GUIDE test strip [ Pharmacy Med Name: Accu-Chek Guide In Vitro Strip] Encounter Details Date Type Department Care Team Description 01/29/2021 Refill [facility] Victor M Shrestha MD Refill (ACCU-CHEK GUIDE Medicine [address] test strip [Pharmacy Med [address] [place], [place] Name: [place] [address] Vitro Strip]) [phone] (Wo rk) Social History Tobacco Use Types Packs/Day Years Used Date Smoking Tobacco: Never Smokeless Tobacco: Never Alcohol Use Standard Drinks/Week Comments Yes 0 (1 standard drink = 0.6 oz pure alcoho l) 2 servings a month Sex Assigned at Date Recorded Not on file documented as of this encounter Nursing Notes Deyvi Dykes RN - 01/29/2021 8:39 AM CDT Renewed medication per medication refill protocol. Requested Prescriptions Pending Prescriptions Disp Refills ACCU-CHEK GUIDE test strip [Pharmacy Med Name: Accu-Chek Guide In Vitro Strip] 100 Strip 3 Sig: USE TO TEST DAILY Interface, Out Surescripts Prov Query - 01/29/2021 2:02 AM CDT ACCU-CHEK GUIDE test strip [Pharmacy Med Name: Accu-Chek Guide In Vitro Strip] Medication started: 01/24/2020 Last ordered by VICTOR M SHRESTHA: 01/24/2020 (371 days ago) QTY: 100, Refills: 3, Sig: use to test daily. code r73.03 (changed) -> Unable to determine if sig has changed, review required. -> Refill x 6 months (until due for an office visit) -> Calculate the quantity and number of refills manually. Last qualifying visit: 08/02/2020 (with VICTOR M SHRESTHA) Next scheduled visit: None Age: 50 Powered by [employer], Reference: [id number], 01/29/2021 2:02:15 AM CDT, Pool:NATHANIEL PRIMARY CARE REFILL ([id number]) documented in this encounter Plan of Treatment Not on filedocumented as of this encounter Visit Diagnoses Diagnosis Pre-diabetes Other abnormal glucose documented in this encounter Care Teams Metalizing Machine Operator Automatic Relationship Specialty Start Date End Date Victor M Shrestha MD PCP - General Family Practice 08/26/[address] [place] [address] [place] [address] documented as of this encounter
--- OUTSIDE RECORDS SUMMARY | 2022-06-24 15:12 | XMS_ITS | Encounter Summary ---
:1970 Author Organization [facility] Address [address], [place] [address] Care Team Providers Name Role Phone Victor M Shrestha MD Primary Care Provider Reason for Visit Reason Comments Refill amLODIPine (NORVASC) 10 MG t ablet [Pharmacy Med Name: amLODIPine Besylate Oral Tablet 10 MG] Encounter Details Date Type Department Care Team Description 07/20/2020 Refill Victor M Hong MD Refill (amLODIPine Medicine [address] (NORVASC) 10 MG tablet [address] [place], [place] [Pharmacy Med Name: [place] [address] amLODIPine Besylate Oral [phone] (Wo rk) Tablet 10 MG]) Social History Tobacco Use Types Packs/Day Years Used Date Smoking Tobacco: Never Smokeless Tobacco: Never Alcohol Use Standard Drinks/Week Comments Yes 0 (1 standard drink = 0.6 oz pure alcoho l) 2 servings a month Sex Assigned at Date Recorded Not on file documented as of this encounter Nursing Notes Birgit Galarza RN - 07/23/2020 9:48 AM CST Further Assistance Needed on Refill from Clinician RN reviewed. Medication ordered for short term. Please advise if another supply is appropriate Last visit 02/22/20, failed recent visit Review pended order for accuracy and sign if appropriate, Document if appointment is needed for further refills and route to care team to notify patient if needed. Requested Prescriptions Pending Prescriptions Disp Refills ??? amLODIPine (NORVASC) 10 MG tablet [Pharmacy Med Name: amLODIPine Besylate Oral Tablet 10 MG] 90 Tablet 0 Sig: Take 1 Tablet by mouth daily. E ARMORER OPERATOR Interface, Out BakedCode Prov Query - 07/20/2020 2:02 AM CST amLODIPine (NORVASC) 10 MG tablet [Pharmacy Med Name: amLODIPine Besylate Oral Tablet 10 MG] Medication started: 02/22/2020 Last ordered by KIESHA VERA K: 04/22/2020 (89 days ago) QTY: 90, Refills: 0, Sig: take 1 tablet by mouth daily. (unchanged) -> The medication is active at more than one strength (10 mg on 04/22/2020, 5 mg on 02/22/2020). -> A qualifying visit was not found within the last 2 years. Last qualifying visit: None (A recent visit (in Family Practice with VICTOR M SHRESTHA) was found) Next scheduled visit: None Powered by [facility], Reference: [id number], 07/20/2020 2:02:07 AM KATRIN, Marcellus: NATHANIEL PRIMARY CARE REFILL ([id number]) E ARMORER OPERATOR documented in this encounter Plan of Treatment Not on filedocumented as of this encounter Visit Diagnoses Not on filedocumented in this encounter Care Teams Cold Roller Relationship Specialty Start Date End Date Victor M Shrestha MD PCP - General Family Practice 08/26/[address] [place], [place] [address] documented as of this encounter
--- OUTSIDE RECORDS SUMMARY | 2022-06-24 15:12 | XMS_ITS | Encounter Summary ---
:1970 Author Organization [facility] Address [address], [place] [address] Care Team Providers Name Role Phone Victor M Shrestha MD Primary Care Provider Reason for Visit Reason Comments Refill frovatriptan (FROVA) 2.5 MG tablet [Pharmacy Med Name: Frovatriptan Succinate Oral Tablet 2.5 MG] Encounter Details Date Type Department Care Team Description 08/04/2021 Refill Victor M Hong, Refill (frovatriptan Medicine (FROVA) 2.5 MG tablet [address] [Pharmacy Med Name: [place] [address] [place] Frovatriptan Succinate [phone] Oral Tablet 2.5 MG]) Social History Tobacco Use Types Packs/Day Years Used Date Smoking Tobacco: Never Smokeless Tobacco: Never Alcohol Use Standard Drinks/Week Comments Yes 0 (1 standard drink = 0.6 oz pure alcoho l) 2 servings a month Sex Assigned at Date Recorded Not on file documented as of this encounter Nursing Notes Ximena Stephens, RN - 08/07/2021 8:56 AM CST Renewed medication per medication refill protocol. Requested Prescriptions Pending Prescriptions Disp Refills ??? frovatriptan (FROVA) 2.5 MG tablet [Pharmacy Med Name: Frovatriptan Succinate Oral Tablet 2.5 MG] 9 Tablet 0 Sig: Take 1 Tablet by mouth once as needed for up to 1 dose. 90 day supply given per Emergency Refill Standing Order. Ximena Stephens RN 08/07/2021, 8:56 AM E THEATER USHER Interface, Out Access Media 3 Prov Query - 08/04/2021 10:42 AM CST frovatriptan (FROVA) 2.5 MG tablet [Pharmacy Med Name: Frovatriptan Succinate Oral Tablet 2.5 MG] Medication started: 09/21/2018 Last ordered by VICTOR M SHRESTHA (560 days ago) QTY: 9, Refills: 11, Sig: take 1 tablet by mouth once as needed for up to 1 dose. (unchanged) -> Refill x 1 month (courtesy refill. overdue for an office visit) -> Calculate the quantity and number of refills manually. Last qualifying visit: 08/02/2020 (with VICTOR M SHRESTHA) Next scheduled visit: None Powered by [employer], Reference: [id number], 08/04/2021 10:42:22 AM KATRIN, Marcellus: NATHANIEL PRIMARY CARE REFILL ([id number]) E THEATER USHER documented in this encounter Plan of Treatment Not on filedocumented as of this encounter Visit Diagnoses Diagnosis Hemiplegic migraine without status migra inosus, not intractable Hemiplegic migraine, without mention of intractable migraine without mention of status migrainosus documented in this encounter Care Teams Electric Motor Rebuilder Relationship Specialty Start Date End Date Victor M Shrestha MD PCP - General Family Practice 08/26/18 [address] [place] [address] documented as of this encounter
--- OUTSIDE RECORDS SUMMARY | 2022-06-24 15:12 | XMS_ITS | Encounter Summary ---
:1970 Author Organization [facility] Address [address], [place] [address] Care Team Providers Name Role Phone Victor M Shrestha MD Primary Care Provider Reason for Visit Reason Comments Refill amLODIPine (NORVASC) 10 MG t ablet [Pharmacy Med Name: amLODIPine Besylate Oral Tablet 10 MG] Encounter Details Date Type Department Care Team Description 10/23/2020 Refill [facility] Victor M Shrestha MD Refill (amLODIPine Medicine [address] (NORVASC) 10 MG tablet [address] [place], [place] [[place]: [place] [address] amLODIPine Besylate Oral [phone] (Wo rk) Tablet 10 MG]) Social History Tobacco Use Types Packs/Day Years Used Date Smoking Tobacco: Never Smokeless Tobacco: Never Alcohol Use Standard Drinks/Week Comments Yes 0 (1 standard drink = 0.6 oz pure alcoho l) 2 servings a month Sex Assigned at Date Recorded Not on file documented as of this encounter Nursing Notes Deyvi Dykes RN - 10/23/2020 9:06 AM CST Further Assistance Needed on Refill from Clinician RN reviewed. Medication newly ordered in last 12 months and Please advise if [facility] supply is appropriate Last qualifying visit: 08/02/2020 (with VICTOR M SHRESTHA) Next scheduled visit: None Review pended order for accuracy and sign if appropriate and Document if appointment is needed for further refills Requested Prescriptions Pending Prescriptions Disp Refills amLODIPine (NORVASC) 10 MG tablet [Pharmacy Med Name: amLODIPine Besylate Oral Tablet 10 MG] 90 Tablet Sig: Take 1 Tablet by mouth daily. ER [employer] Lynette, Out [employer] Prov Query - 10/23/2020 2:01 AM CST amLODIPine (NORVASC) 10 MG tablet [Pharmacy Med Name: amLODIPine Besylate Oral Tablet 10 MG] Medication started: 02/22/2020 Last ordered by VICTOR M SHRESTHA (92 days ago) QTY: 90, Refills: 0, Sig: take 1 tablet bymouth daily. (unchanged) -> Refill x 12 months, qty: 90, refills: 3 (until due for an office visit) Last qualifying visit: 08/02/2020 (with VICTOR M SHRESTHA) Next scheduled visit: None Powered by [employer], Reference: [id number], 10/23/2020 2:01:53 AM Pito WILKES PRIMARY CARE REFILL ([id number]) documented in this encounter Plan of Treatment Not on filedocumented as of this encounter Visit Diagnoses Not on filedocumented in this encounter Care Teams Consumer Credit Counselor Relationship Specialty Start Date End Date Victor M Shrestha MD PCP - General Family Practice 08/26/[address] [place] [address] [address] [place], [place] [address] documented as of this encounter
--- OUTSIDE RECORDS SUMMARY | 2022-06-24 15:12 | XMS_ITS | Encounter Summary ---
:1970 Author Organization [facility] Address [address] [address] Care Team Providers Name Role Phone Victor M Shrestha MD Primary Care Provider Reason for Visit Reason Comments Refill hydroCHLOROthiazide (ORETIC) 25 MG tablet [Pharmacy Med Name: hydroCHLOROthiazide Oral Tab let 25 MG] Encounter Details Date Type Department Care Team Description 11/04/2020 Refill [facility] Victor M Shrestha, Refill (hydroCHLOROthiazide Medicine (ORETIC) 25 MG tablet [address] [place] [Pharmacy Med Name: [place] [address] [place], [place] hydroCHLOROthiazide Oral [phone] Tablet 25 MG]) Social History Tobacco Use Types Packs/Day Years Used Date Smoking Tobacco: Never Smokeless Tobacco: Never Alcohol Use Standard Drinks/Week Comments Yes 0 (1 standard drink = 0.6 oz pure alcoho l) 2 servings a month Sex Assigned at Date Recorded Not on file documented as of this encounter Nursing Notes Leanne Frost RN - 11/04/2020 2:26 PM CDT Renewed medication per medication refill protocol. Requested Prescriptions Pending Prescriptions Disp Refills hydroCHLOROthiazide (ORETIC) 25 MG tablet [Pharmacy Med Name: hydroCHLOROthiazide Oral Tablet 25 MG] 90 Tablet 1 Sig: TAKE 1 TABLET BY MOUTH DAILY. Interface, Out Surescripts Prov Query - 11/04/2020 1:20 PM CDT hydroCHLOROthiazide (ORETIC) 25 MG tablet [Pharmacy Med Name: hydroCHLOROthiazide Oral Tablet 25 MG] Medication started: 09/21/2018 Last ordered by VICTOR M SHRESTHA: 11/03/2019 (367 days ago) QTY: 90, Refills: 0, Sig: take 1 tablet by mouth daily. (unchanged) -> Refill x 6 months, qty: 90, refills: 1 (until due for a(n) Cr check, K check and Na check) Last qualifying visit: 08/02/2020 (with VICTOR M SHRESTHA) Next scheduled visit: None Cr: 1 mg/dL on 02/27/2020 Na: 141 mEq/L on 02/27/2020 K: 4.2 mEq/L on 02/27/2020 Powered by [employer], Reference: [id number], 11/04/2020 1:20:56 PM CDT, Pool: ESTEPHANIA FP REFILL ([id number]) Interface, Out [employer]Invest Query - 11/04/2020 1:20 PM CDT The following lab order(s) may be [...] hypertension documented in this encounter Care Teams Supervisor Hospitality House Relationship Specialty Start Date End Date Victor M Shrestha MD PCP - General Family Practice 08/26/[address] [place] [address] documented as of this encounter
--- OUTSIDE RECORDS SUMMARY | 2022-06-24 15:12 | XMS_ITS | Encounter Summary ---
:1970 Author Organization [facility] Address [address] [address] Care Team Providers Name Role Phone Felipa Shrestha MD Primary Care Provider Reason for Visit Reason Comments Refill predniSONE (DELTASONE) 20 MG tablet Encounter Details Date Type Department Care Team Description 03/31/[address] [facility] (DELTASONE) 20 MG Neurology [address] tablet) [address] [place] [address] [phone] Social History Tobacco Use Types Packs/Day Years Used Date Smoking Tobacco: Never Smokeless Tobacco: Never Alcohol Use Standard Drinks/Week Comments Yes 0 (1 standard drink = 0.6 oz pure alcoho l) 2 servings a month Sex Assigned at Date Recorded Not on file documented as of this encounter Nursing Notes Dino Zamora MD - 04/02/2021 2:40 PM CDT Reviewed note. Refilled. Dino Zamora MD Alexia Shaikh RN - 04/01/2021 8:15 AM CDT I am unable to fill prescription for predniSONE (DELTASONE) 20 MG tablet because it is not on the RNprotocol/standing order. Dr. Zamora please review, fill, and sign as appropriate. Thank you! Medication: predniSONE (DELTASONE) 20 MG tablet Last date filled: 02/04/21 Last office visit with:Sera on 02/04/21 Last note states: Prednisone 20 mg x 5 days when needed for severe migraine Alexia Shaikh RN 04/01/2021, 8:15 AM documented in this encounter Plan of Treatment Not on filedocumented as of this encounter Visit Diagnoses Diagnosis Hemiplegic migraine with status migraino ezekiel, not intractable Hemiplegic migraine, without mention of intractable migraine with status migrainosus documented in this encounter Care Teams Demand Planner Relationship Specialty Start Date End Date Felipa Shrestha MD PCP - General Family Practice 08/26/18 [address] [place] [address] documented as of this encounter
--- OUTSIDE RECORDS SUMMARY | 2022-06-24 15:12 | XMS_ITS | Encounter Summary ---
:1970 Author Organization [facility] Address [address], [place] [address] Care Team Providers Name Role Phone Felipa Shrestha MD Primary Care Provider Reason for Visit Reason Comments HEADACHE,MIGRAINE Encounter Details Date Type Department Care Team Description [facility]legic migraine without status migrainosus, not intractable (Primary Dx); [facility] MD Gillian Secondary seizure disorder (HRC); Neurology [address] Prolonged QT interval; [address] [place], [place] Vitamin B12 deficiency; [place], [place] [id number] Vitamin D deficiency; [phone] Dizziness; (Work) Twitching; [phone] Nocturnal muscl e cramps; (Fax) Chronic ulcerat jasmin colitis with complication, unspecified location (HRC) Social History Tobacco Use Types Packs/Day Years [...] - - Weight 117.5 kg (259 lb) 11/21/2020 2:53 PM CDT Height - - Body Mass Index 40.57 06/16/2019 8:03 AM CDT documented in this encounter Patient Instructions Patient InstructionsDino Zamora MD - 11/21/2020 2:25 PM CDT Hemiplegic/Atypical migraine Dizziness Seizure Disorder - I am not sure that you have a seizure disorder. History of Vitamin B12 and D deficiency Muscle cramping, twitching Tests: We will check labs - iron profile, iron stores, muscle enzymes Medications: Frovatriptan as needed for migraine Amitriptlyine 25 mg nightly Verapamil 240 mg nightly. Advice: Keep active as you can. Follow up: 6-8 weeks Sincerely, Dino Zamora M.D. Neurology and Neuromuscular Medicine [facility] documented in this encounter Progress Notes Dino Zamora MD - 11/21/2020 2:25 PM CDT DATE OF VISIT: 11/21/20 [facility] Neurology [address] [place] [address] Dept: [phone] Dept The consult was requested by: Dian Troncoso M.D.?? [address]?? [place] [address]?? [phone]? Violet Gilliam MD [address] [place] [address] PCP: Felipa Shrestha MD Chief Complaint Patient presents with ??? HEADACHE,MIGRAINE IMPRESSION AND DISCUSSION: Sandra Pimentel is a 50 y.o. old female # Hemiplegic migraine and possible seizure disorder Diagnosis of hemiplegic migraine and seizure disorder diagnosed at [facility] in 2009. She getssevere headaches that last [...] (with events) as of 2003 evaluation at [facility]. She had normal imaging and EEG at [facility] in 2011. She has been on several other meds that have not helped. I have refilled Verapamil. Given her QT prolongation we reduced her Amitriptyline to 25 mg nightly in 01/2020. - Verapamil 240 mg nightly - Frovatriptan as needed. Using 5-9x a month. - Amitriptyline 25 mg daily. # Dizziness and syncope She had syncopal event at home x 2 on 01/25/20 and was admitted. She was found to have prolonged QT interval. She states she was put on a new medication (HCTZ/lisinopril) and passed out. She does not remember the dose of this medication. She has been helped over the years by Verapamil and Amitriptyline. She has since moved to [facility] and was managed at [facility]; they were considering autonomic neuropathy (we do not have full records). She is now off of amlodopine and metformin and dizziness is improved. Of note she has also lost weight. # Twitching, nocturnal cramps She has had some episodes of twitching and nocturnal cramps. She thought amlodopine could be contributing to these cramps, she is now off of it. These are exacerbated during migraines. She has a history of anemia due to ulcerative colitis. We will check iron studies, CK, LDH. # History of B12 deficiency and Vit D deficiency Normal levels as of 02/27/20. We will ask for further records from [facility] and [facility]. The primary encounter diagnosis was Hemiplegic migraine without status migrainosus, not intractable.Diagnoses of Secondary seizure disorder (HRC), Prolonged QT interval, Vitamin B12 deficiency, Vitamin D deficiency, Dizziness, Nocturnal foot cramps, Twitching, and Nocturnal muscle cramps were also per tinent to this visit. PLAN (per patient instructions): Hemiplegic/Atypical migraine Dizziness Seizure Disorder - I am not sure that you have a seizure disorder. History of Vitamin B12 and D deficiency Muscle cramping, twitching Tests: We will check labs - iron profile, iron stores, muscle enzymes Medications: Frovatriptan as needed for migraine Amitriptlyine 25 mg nightly Verapamil 240 mg nightly. Advice: Keep active as you can. Follow up: 6-8 weeks Interval Hx: - Dizziness spells - through the summer. Sleeping a lot. When walked upstairs was getting too winded. She went off of Amlodopine. She is now only on HCTZ. - Lost 46 lbs since last visit in January. She started Weight [employer]. She thinks that she is no longer diabetic and perhaps metformin was causing problems as well. - Less migraines per month. She gets some numbness on one side, she has had weakness on one side as well but not as much as before. She is using Frovotriptan 5x a month the last 2 months. - She is getting involuntary twitching when she goes to sleep, and during the cycles of migraines. Feels like muscles are moving under skin, and then makes her whole body ache. History of Present Illness: Sandra Pimentel is a 50 y.o. old female right-handed History was obtained by patient and family interview, [facility]. Seen [facility] 01/25/20 for syncopal episode x2 while at [...] seizure disorder about 10 years ago in [place] (2009). She initially got sick with a severe migraine in the year 1999. July 2000 - was hospitalized with tonic clonic seizures. She notes that she has had several evaluations, including in [place], with EEG and MRI BRAIN - these have been normal. She recently saw a neurologist Dr. Darvin Eli in [facility]. At worst she has having 25 [...] today. Component Latest Ref Rng & Units 02/27/2020 [...] ms Preliminary QTc 464 ms Preliminary P Bouton 62 degrees Preliminary R Bouton -14 degrees Preliminary T Bouton 40 degrees Preliminary MRA HEAD 04-Mar-2004 09:22:00 ??Exam: MRA/v Hd [...] negative. Ind: 107.990 Dia.200 Kentrell Soares MD [phone] ([id number]) I have reviewed the films/images and agree with the above interpretation. Electronically signed by: Vicki Campbell M.D. [id number] 31-Aug-2003 14:11 EEG 2003 Referring Physician: ??Basim ??[id number] ? Date: ??30 Aug 2003 ?? EEG Client Technologies Analyst: ? Michelle Nogueira [id number] ? 31 Aug 2003 ?? 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 ?? REPORT: ??Computer-assisted prolonged video EEG monitoring [...] Electroencephalography Final Report Referring Physician: Basim [id number] Date: 30 Aug 2003 EEG Client [employer] Analyst: Michelle Nogueira [id number] 31 Aug 2003 Clinical Problem: Computer-assisted prolonged [...] no activation; Recorded symptoms without electrographic correlate; vehicle monitor technician. REPORT: Computer-assisted prolonged video EEG monitoring was [...] at bedtime., Disp: 90 Tablet, Rfl: 1 amLODIPine (NORVASC) 10 MG tablet, Take 1 Tablet by mouth daily. , Disp: 90 Tablet, Rfl: 3 blood glucose (ACCU-CHEK MINDY PLUS) test strip, [...] 1 Patch to skin., Disp: , Rfl: frovatriptan (FROVA) 2.5 MG [...] Code R73.03, Disp: 100 Each, Rfl: 3 metFORMIN XR (GLUCOPHAGE XR) 500 MG 24 hour release tablet, Take 4 Tablets by mouth daily with breakfast., Disp: 360 Tablet, Rfl: 3 omeprazole (PRILOSEC) 20 MG capsule, Take 1 Capsule by mouth daily. Take 1 hour before a meal. (Patient not taking: Reported on 08/02/2020), Disp: 14 Capsule, Rfl: 3 predniSONE (DELTASONE) 10 MG tablet, Take 1 [...] current facility-administered medications on file as of 11/21/2020. PHYSICAL EXAMINATION: Wt 259 lb (117.5 kg) BMI 40.57 kg/m?? General: Patient was a pleasant 50 y.o. female, appearing stated age, resting comfortably and in no acute distress. Pain level 5/10, can get up to 9/10. HEENT: Anicteric. Oropharynx was clear and moist. There was no tenderness in the frontal or maxillary sinuses, nor the temples. Neck:Good ROM. Chest: Nonlabored breathing. Extr: no edema NEUROLOGICAL EXAM: Mental Status: [...] was normal and there were no fasciculations. Motor: Normal bulk. Normal strength throughout. Coordination: Rapid alternative movements showed normal frequency and amplitude, including fine finger movements, pronation/supination, and opening and closing of the fist. There was no dysmetria on utmlac-jlei-kescau or tyiw-fkzo-metn. There was no truncal ataxia. Foot tapping was normal. Sensation: Intact throughout. Gait: Normal stance and stride. Symmetrical arm swing. TT>50 mins of which majority was patient and family on counseling, education and coordination of care in the room, including my impression, the prognosis, discussion of tests and reasons for tests, coordination of care, and answering questions regarding the above, including effects and side effectsof medications, medication interactions, and changes to the medication regimen as above, and review of records from [facility] and [facility]. Counseling: All of the above was explained [...] Dino Zamora M.D. Neurology and Neuromuscular Medicine [facility] Neurology documented in this encounter Plan of Treatment Not on filedocumented as of this encounter Results C-Reactive Protein (12/03/2020 11:26 AM CDT) P athologist Signature C-Reactive 0.7 0.0 - 0.7 12/03/2020 [facility] Protein mg/dL 1:10 PM CDT LABORATORY Specimen Anatomical Collection Method / Collection Time Recei jagdeep Time (Source) Location / Volume Laterality Blood Venipuncture / 12/03/2020 11:26 04/13/202 1 Unknown AM CDT 11:26 AM CDT Dino Zamora MD LAB_1 Performing Organization Address [facility]/ZIP Code Phon e Number [facility] [address] [place] [address] 5769 ESR (12/03/2020 11:26 AM CDT) Patholo gist Method Time Signature Sedimentation Rate 15 0 - 20 12/03/2020 [facility] mm/hr 12:07 PM CDT LABORATORY Specimen Anatomical Collection Method / Collection Time Recei jagdeep Time (Source) Location / Volume Laterality Blood Venipuncture / 12/03/2020 11:26 1 Unknown AM CDT 11:26 AM CDT Dino Zamora MD LAB_1 Performing Organization Address [facility]/ZIP Code Phon e Number [facility] [address] [place] [address] LD Total (LDH) (12/03/2020 11:26 AM CDT) P athologist Signature LD 159 119 - 235 12/03/2020 [facility] U/L 1:10 PM CDT LABORATORY Specimen Anatomical Collection Method / Collection Time Recei jagdeep Time (Source) Location / Volume Laterality Blood Venipuncture / 12/03/2020 11:26 1 Unknown AM CDT 11:26 AM CDT Dino Zamora MD LAB_1 Performing Organization Address [facility]/ZIP Code Phon e Jackie [facility] [address] [place] [address] (ABNORMAL) CK, Total (12/03/2020 11:26 AM CDT) P athologist Signature CK, Total 27 (L) 29 - 168 12/03/2020 [facility] U/L 1:10 PM CDT LABORATORY Specimen Anatomical Collection Method / Collection Time Recei jagdeep Time (Source) Location / Volume Laterality Blood Venipuncture / 12/03/2020 11:26 1 Unknown AM CDT 11:26 AM CDT Dino Zamora MD LAB_1 Performing Organization Address City/[facility]/ZIP Code Phon e Number [facility] [address] [place] [address] Iron Profile (Iron,TIBC,%Sat.(Calc)) (12/03/2020 11:26 AM CDT) athologist Signature Iron 92 50 - 170 12/03/2020 [facility] mcg/dL 4:04 PM CDT LABORATORY Transferrin 299 180 - 382 12/03/2020 [facility] mg/dL 4:04 PM CDT LABORATORY TIBC, Calculated 374 240 - 450 12/03/2020 [facility] mcg/dL 4:04 PM CDT LABORATORY % Saturation, 25 10 - 50 % 12/03/2020 [facility] Calculated 4:04 PM CDT LABORATORY Specimen Anatomical Collection Method / Collection Time Recei jagdeep Time (Source) Location / Volume Laterality Blood Venipuncture / 12/03/2020 11:26 1 Unknown AM CDT 11:26 AM CDT Dino Zamora MD LAB_1 Performing Organization Address City/[facility]/ZIP Code Phon e Number [facility] [address] [place] [address] Ferritin (12/03/2020 11:26 AM CDT) athologist Signature Ferritin 46 9 - 204 12/03/2020 [facility] ng/mL 4:04 PM CDT LABORATORY Specimen Anatomical Collection Method / Collection Time Recei jagdeep Time (Source) Location / Volume Laterality Blood Venipuncture / 12/03/2020 11:26 1 Unknown AM CDT 11:26 AM CDT Dino Zamora MD LAB_1 Performing Organization Address City/[facility]/ZIP [facility] Phon e Number [facility] [address] [place] [address] documented in this encounter Visit Diagnoses Diagnosis Hemiplegic migraine without status migra inosus, not intractable - Primary Hemiplegic migraine, without mention of intractable migraine without mention of status migrainosus Secondary seizure disorder (HRC) Unspecified epilepsy without mention of intractable epilepsy Prolonged QT interval Nonspecific abnormal electrocardiogram ( ECG) (EKG) Vitamin B12 deficiency (HRC) Other B-complex deficiencies Vitamin D deficiency (HRC) Unspecified vitamin D deficiency Dizziness Dizziness and giddiness Twitching Abnormal involuntary movements Nocturnal muscle cramps Cramp of limb Chronic ulcerative colitis with complica tion, unspecified location (HRC) documented in this encounter Care Teams Float Operator Relationship Specialty Start Date End Date Felipa Shrestha MD PCP - General Family Practice 08/26/[address] [place] [address] documented as of this encounter
--- OUTSIDE RECORDS SUMMARY | 2022-06-24 15:12 | XMS_ITS | Encounter Summary ---
:1970 Author Organization [facility] Address [address], [place] [address] Care Team Providers Name Role Phone Felipa Shrestha MD Primary Care Provider Reason for Visit Reason Comments Medication Request Encounter Details Date Type Department Care Team Description 01/24/2020 Telephone [facility] Felipa Shrestha MD Medication Request Medicine 300 [facility] [address] [facility] [place] [address] [place], [place] [id number] [phone] Social History Tobacco Use Types Packs/Day Years Used Date Smoking Tobacco: Never Smokeless Tobacco: Never Alcohol Use Standard Drinks/Week Comments Yes 0 (1 standard drink = 0.6 oz pure alcoho l) 2 servings a month Sex Assigned at Date Recorded Not on file documented as of this encounter Nursing Notes Yasmeen Asif LPN - 01/24/2020 3:59 PM CDT Spoke to pt. Will go into [place] in 2 weeks for next labs to be drawn Felipa Shrestha MD - 01/24/2020 3:38 PM CDT Orders placed. Just AM fasting for now. Jenna Gutiérrez RN - 01/24/2020 3:26 PM CDT Clinician Action: New Order Medication Clinician Next Step: Review associated dx/order for accuracy and sign pended orders, if appropriate and Patient IS expecting a call back from care team Specific Request(s): 1. Pt is requesting orders for diabetic testing supplies. 2. Pt currently testing in the morning. Please advise if recommend testing at other time throughout the day. Requested Prescriptions Pending Prescriptions Disp Refills ??? Accu-Chek Mindy Plus meter 1 Each 0 Sig: Use to test daily. Use as directed. Pharmacy dispense brand based on insurance. Code R73.03 ??? blood glucose (ACCU-CHEK MINDY PLUS) test strip 100 Strip 3 Sig: Use to test daily. Code R73.03 ??? lancet (ACCU-CHEK FASTCLIX) device 1 Each 0 Sig: Use to test daily. Use as directed. Pharmacy dispense brand based on insurance. Code R73.03 ??? lancets (ACCU-CHEK FASTCLIX) 100 Each 3 Sig: Use 1 Each to test daily. Code R73.03 Spoke with patient. States she has been using her 's supplies to test her blood sugars daily,Current usint Accu-chek Mindy meter. States she would prefer to have her own orders so she is not using all of his supplies. States she has been testing once daily in the morning. Blood sugar has been 160-248 the past two days. Problem list reviewed as related to this call. Kenton Herman - 01/24/2020 2:55 PM CDT Medications - New Medication What medication are you calling about (name or what do/did you take it for)? Diabetic testing supplies Why are you calling for this medication? Have you taken this medication or type of medication before and if so, when was it last taken? No (If No, please help schedule an appointment) Additional comments (related to the above concern): pt would like to speak with nurse For this new medication, patient would like it filled at the pharmacy listed in Meds & Orders. (Verify the pharmacy patient would like to use for this request is highlighted in blue in Pharmacy Selection under Meds & Orders) Is it okay to leave a detailed message on your voicemail? Yes (Advise caller that the PN call back number will end with [phone] or unknown) Please route to: Triage Pool documented in this encounter Plan of Treatment Not on filedocumented as of this encounter Visit Diagnoses Diagnosis Pre-diabetes - Primary Other abnormal glucose documented in this encounter Care Teams Animal Herder Relationship Specialty Start Date End Date Felipa Shrestha MD PCP - General Family Practice 08/26/[address] [place] [address] [place] [address] documented as of this encounter
--- OUTSIDE RECORDS SUMMARY | 2022-06-24 15:12 | XMS_ITS | Encounter Summary ---
:1970 Author Organization [facility] Address [address], [place] [address] Care Team Providers Name Role Phone Felipa Shrestha MD Primary Care Provider Reason for Visit Reason Comments Medication Request Encounter Details Date Type Department Care Team Description 04/22/2020 Telephone [facility] Felipa Shrestha MD Medication Request Medicine 300 [facility] [address] [facility] [place] [address] [place], [place] [id number] [phone] Social History Tobacco Use Types Packs/Day Years Used Date Smoking Tobacco: Never Smokeless Tobacco: Never Alcohol Use Standard Drinks/Week Comments Yes 0 (1 standard drink = 0.6 oz pure alcoho l) 2 servings a month Sex Assigned at Date Recorded Not on file documented as of this encounter Nursing Notes Priti Woodward MA - 04/23/2020 9:14 AM CDT Lm per pcp w/# to call to sched appt Tamara Mccall MD - 04/22/2020 9:04 PM CDT Meds sent to pharmacy. Please leave at least 5 days for refills in the future especially as pharmacies are closing earlier, this refill request was dealt with after seeing pts int he office for the day. I sent the refill but she should really be seen in the office for recheck as we have no in control blood pressures on file. BP Readings from Last 3 Encounters: 02/20/20 (!) 145/100 06/16/19 (!) 131/105 09/21/18 (!) 125/95 Tamara Méndez RN - 04/22/2020 3:15 PM CDT Clinician Action: New Order Medication Clinician Next Step: Patient IS expecting a call back from care team Specific Request: 1. Pt needs refill of amlodipine today, she requests to stay at 10 mg. Last order of amlodipine was for 5 mg on 02/22/2020. Per 02/22/20 video visit, pt advised to start amlodipine 2.5 mg and increase weekly until BPs are lessthan 130/90, max dosage being 10 mg/day. She has been taking 10 mg dosage for about 3 weeks, and readings have been around 125/80. Nohemi Gil - 04/22/2020 3:00 PM CDT Medications - Med Change / Question Is this a medication change or a general question? Med Change What is the name and dose of the current medication? amLODIPine (NORVASC) 5 MG tablet Do you know what medication/dosage you would like to change to? (If yes, what is the medication name/dosage?) Yes: pt increased dose to 10 MG (taking two 5 MG tablets daily) Why do you need to change medication/dosage? Pt was instructed by PCP to increase the dosing How often do you take it? Take 1 Tablet by mouth daily. Who prescribed it? Felipa Shrestha MD Additional comments (related to the above concern): Pt has run out of this medication since she was taking twice the amount. Please advise. For this medication, patient would like it filled at [...] encounter Visit Diagnoses Diagnosis Essential hypertension (HRC) - Primary Unspecified essential hypertension documented in this encounter Care Teams Manager Switch Relationship Specialty Start Date End Date Felipa Shrestha MD PCP - General Family Practice 08/26/[address] [place] [address] [place] [address] documented as of this encounter
--- OUTSIDE RECORDS SUMMARY | 2022-06-24 15:12 | XMS_ITS | Encounter Summary ---
:1970 Author Organization [facility] Address [address], [place] [address] Care Team Providers Name Role Phone Felipa Shrestha MD Primary Care Provider Encounter Details Date Type Department Care Team Description 10/23/2020 Telephone Process Relations Neuroscience Dino Acosta MD [facility] [address] [place] [address] [place] [address] [phone] Social History Tobacco Use Types Packs/Day Years Used Date Smoking Tobacco: Never Smokeless Tobacco: Never Alcohol Use Standard Drinks/Week Comments Yes 0 (1 standard drink = 0.6 oz pure alcoho l) 2 servings a month Sex Assigned at Date Recorded Not on file documented as of this encounter Nursing Notes Vickie Asif - 10/23/2020 11:20 AM CST Patient is now scheduled for Dr Zamora 11/21 at 2:25 pm for a video visit Vickie Asif 10/23/2020, 11:21 AM LINE WRITER Kelly King RN - 10/23/2020 11:01 AM CST Please schedule Sandra with Dr. Zamora 11/21 - 2:25 for a video visit. Pt is aware of appt time/date. Kelly King RN LINE WRITER documented in this encounter Plan of Treatment Not on filedocumented as of this encounter Visit Diagnoses Not on filedocumented in this encounter Care Teams Assistant Press Operator Offset Relationship Specialty Start Date End Date Felipa Shrestha MD PCP - General Family Practice 08/26/18 [address] [place] [address] documented as of this encounter
--- OUTSIDE RECORDS SUMMARY | 2022-06-24 15:12 | XMS_ITS | Encounter Summary ---
:1970 Author Organization [facility] Address [address] [address] Care Team Providers Name Role Phone Felipa Shrestha MD Primary Care Provider Reason for Visit Reason Comments HEADACHE,MIGRAINE Encounter Details Date Type Department Care Team Description [facility]/04[facility]iplegic migraine with status migrainosus, not intractable (Primary Dx); [facility] MD Gillian Secondary seizure disorder (HRC); Neurology [address] Essential hypertension; [address] [place], [place] Chronic ulcerative colitis w ith complication, unspecified location (HRC); [place] [id number] Muscle cramping; [phone] Vitamin B12 def iciency; (Work) Low ferritin level Social History Tobacco Use Types Packs/Day Years [...] - Inhaled Oxygen Concentration - - Weight 102.5 kg (226 lb) 02/04/2021 1:06 PM CDT Height - - Body Mass Index 35.4 06/16/2019 8:03 AM CDT documented in this encounter Patient Instructions Patient InstructionsDino Zamora MD - 02/04/2021 12:40 PM CDT Hemiplegic/Atypical migraine Dizziness Seizure Disorder - I am not sure that you have a seizure disorder. History of Vitamin B12 and D deficiency Muscle cramping, twitching -- restless legs -- related to low ferritin Ulcerative Colitis Tests: Labs look okay - there is low ferritin, low CK. Medications: Frovatriptan as needed for migraine Amitriptlyine 25 mg nightly Verapamil 240 mg nightly. Ferritin daily B complex supplement - 3 days a week Magnesium, Riboflavin D/c omeprazole Prednisone 20 mg x 5 days when needed for severe migraine. Advice: Increase aerobic activity. This will help your muscles and your migraines. Try to do 30 minutes a day of walking or elliptical. Follow up: 12 weeks. We will get records from [place]. documented in this encounter Progress Notes Dino Zamora MD - 02/04/2021 12:40 PM CDT DATE OF VISIT: 02/04/[address] [facility] Neurology [address] [place] [address] Dept: [phone] Dept VIDEO VISIT Patient location: Home Provider location: [facility] The consult was requested by: Jordan Troncoso MD [address] [place] [id number] PCP: Felipa Shrestha MD Chief Complaint Patient presents with ??? HEADACHE,MIGRAINE IMPRESSION AND DISCUSSION: Sandra Pimentel is a 50 y.o. old female # Hemiplegic migraine and possible seizure disorder Diagnosis of hemiplegic migraine and seizure disorder diagnosed at [facility] in 2009. She getssevere headaches that last [...] (with events) as of 2003 evaluation at [facility]. She had normal imaging and EEG at [facility] in 2011. She has been on several other meds that have not helped. I have refilled Verapamil. Given her QT prolongation we reduced her Amitriptyline to 25 mg nightly in 01/2020. She has done okay on this dose. - Verapamil 240 mg nightly - Frovatriptan as needed. Using 5-9x a month. - Amitriptyline 25 mg daily. - Magnesium, Riboflavin, CoQ10. # Status migrainosus She had recent spell of migraines for 3 weeks with status migrainosus. She went to the [facility] recently. We will request records. She needed slow Mag drip. She [...] and Amitriptyline. She has since moved to [facility] and was managed at [facility]; they were considering [...] a history of anemia dueto ulcerative colitis. Ferritin was low. We will remeasure in one month. We talked about incorporating walking program. # History of B12 deficiency and Vit D deficiency, related to Chronic UC Normal levels as of 02/27/20. She may be having more sx due to B vitamin deficiency. We will start B Complex supplement 3 days a week. We will remeasure B vitamins in one month. We have reviewed and [facility]. The primary encounter diagnosis was Hemiplegic migraine with status migrainosus, not intractable. Diagnoses of Secondary seizure disorder (HRC), Essential hypertension (HRC), Chronic ulcerative colitiswith complication, unspecified location (HRC), Muscle cramping, Vitamin B12 deficiency, and Low ferritin level were also pertinent to this visit. PLAN (per patient instructions): Hemiplegic/Atypical migraine Dizziness Seizure Disorder - I am not sure that you have a seizure disorder. History of Vitamin B12 and D deficiency Muscle cramping, twitching -- restless legs -- related to low ferritin Ulcerative Colitis Tests: Labs look okay - there is low ferritin, low CK. Medications: Frovatriptan as needed for migraine Amitriptlyine 25 mg nightly Verapamil 240 mg nightly. Ferritin daily B complex supplement - 3 days a week Magnesium, Riboflavin Prednisone 20 mg x 5 days when needed for severe migraine. Advice: Increase aerobic activity. This will help your muscles and your migraines. Try to do 30 minutes a day of walking or elliptical. Follow up: 12 weeks. We will get records from [place]. Interval Hx: - Real bad spells of migraine. Daughter had surgery beginning of January, and started after that. Thinks it was related to weather changes, got really hot. When we had the rain before the heat. Finally went away. Took about 3 weeks total to get better. Was driving in [facility], had to take breaks. Had majo with her and had to take shot and take rest of trip. - No LOC. Took about 2 weeks to get better. Had some lingering headaches and one bad one week later. - Dizziness spells - not as much now, do think it is related to eating, did get better when she wentoff Weight Watchers and went off Amlodopine. - Taking Benadryl, CBD oil, Motrin, Tylenol for muscle cramping, pain. Motrin and Toradol mess with her colitis. - Lost 46 lbs since last visit in January. She started Weight [employer]. She thinks that she is no longer diabetic and perhaps metformin was causing problems as well. History of Present Illness: Sandra Pimentel is a 50 y.o. old female right-handed History was obtained by patient and family interview, chart review and CareEverywhere review. Seen [facility] 01/25/20 for syncopal episode x2 while [...] seizure disorder about 10 years ago in [place] (2009). She initially got sick with a severe migraine in the year 1999. July 2000 - was hospitalized with tonic clonic seizures. She notes that she has had several evaluations, including in [place], with EEG and MRI BRAIN - these have been normal. She recently saw a neurologist Dr. Darvin Eli in [facility]. At worst she has having 25 episodes [...] ms Preliminary QTc 464 ms Preliminary P Weed 62 degrees Preliminary R Weed -14 degrees Preliminary T Weed 40 degrees Preliminary Component Latest Ref Rng [...] negative. Ind: 107.990 Dia.200 Kentrell Soares MD [phone] ([id number]) I have reviewed the films/images and agree with the above interpretation. Electronically signed by: Vicki Campbell M.D. [id number] 31-Aug-2003 14:11 EEG 2003 Referring Physician: ??Basim ??[id number] ? Date: ??30 Aug 2003 ?? EEG Weatherization Administrator: ? Michelle Nogueira [phone] ? 31 Aug 2003 ?? Clinical Problem: [...] no activation; ??Recorded symptoms without electrographic correlate; ??school lunch monitor. ?? 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 REPORT: Computer-assisted prolonged video EEG monitoring was [...] daily at bedtime., Disp: 90 Tablet, Rfl:1 dexamethasone (DECADRON) 1 MG tablet, 4 mg [...] with breakfast., Disp: 360 Tablet, Rfl: 0 omeprazole (PRILOSEC) 20 MG capsule, Take 1 Capsule by mouth daily. Take 1 hour before a meal. (Patient not taking: Reported on 08/02/2020), Disp: 14 Capsule, Rfl: 3 promethazine (PHENERGAN) 25 MG tablet, [...] current facility-administered medications on file as of 02/04/2021. PHYSICAL EXAMINATION: BP 118/86 Pulse 80 Wt 226 lb (102.5 kg) BMI 35.40 kg/m?? General: Patient was a pleasant 50 [...] Sensation: Normal. Gait: Normal stance and stride. TT>40 mins of which majority was patient and family on counseling, education and coordination of care in the room, including my impression, the prognosis, discussion of tests and reasons for tests, coordination of care, and answering questions regarding the above, including effects and side effectsof medications, medication interactions, and changes to the medication regimen as above, and review of records from [facility] and [facility]. Counseling: All of the above was [...] Dino Zamora M.D. Neurology and Neuromuscular Medicine [facility] Neurology documented in this encounter Plan of Treatment Not on filedocumented as of this encounter Visit Diagnoses Diagnosis Hemiplegic migraine with status migraino ezekiel, not intractable - Primary Hemiplegic migraine, without mention of intractable migraine with status migrainosus Secondary seizure disorder (HRC) Unspecified epilepsy without mention of intractable epilepsy Essential hypertension (HRC) Unspecified essential hypertension Chronic ulcerative colitis with complica tion, unspecified location (HRC) Muscle cramping Vitamin B12 deficiency (HRC) Other B-complex deficiencies Low ferritin level Other nonspecific findings on examinatio n of blood documented in this encounter Care Teams Outpatient Scheduler Relationship Specialty Start Date End Date Felipa Shrestha MD PCP - General Family Practice 08/26/18 [address] [place] [address] documented as of this encounter
--- OUTSIDE RECORDS SUMMARY | 2022-06-24 15:12 | XMS_ITS | Encounter Summary ---
:1970 Author Organization [employer] Address [address], [place] [address] Care Team Providers Name Role Phone Felipa Shrestha MD Primary Care Provider Reason for Visit Reason Comments Medication Pharmacy Encounter Details Date Type Department Care Team Description 05/22/2020 Telephone [facility] Felipa Shrestha MD Medication Pharmacy Medicine [address] [facility] [address] [place], [place] [id number] [phone] (Wo rk) Social History Tobacco Use Types Packs/Day Years Used Date Smoking Tobacco: Never Smokeless Tobacco: Never Alcohol Use Standard Drinks/Week Comments Yes 0 (1 standard drink = 0.6 oz pure alcoho l) 2 servings a month Sex Assigned at Date Recorded Not on file documented as of this encounter Nursing Notes Lilian Gomez RN - 05/22/2020 10:49 AM CDT Future Appointments Date Time Provider Department Center 05/23/2020 2:15 PM Felipa Shrestha MD [facility] Patient calling back, agreed to video visit for diabetes check. Notified pharmacy. Felipa Henry RN - 05/22/2020 10:07 AM CDT Left voicemail for patient to call clinic back. Unsure why pharmacy is calling in regarding if patient should be on a Statin and if any progression to having diabetes. -Patient increased her Metformin 500 mg XR to [address] Shrestha 01/24/2020 and was advised to follow up in 1 month (from 01/23) with Dr. Shrestha for diabetes f/u and have a repeat A1C. -Patient did follow up on 02/22/2020 but visit was specific to Chest Pain and no recheck Hemoglobin A1C completed. Rosenda Cha - 05/22/2020 9:44 AM CDT Medications - Pharmacy Calls Is your question or concern about a Prior Authorization? No. What is the question or concern? Pharmacy requesting to know if patient should start a statin or if any progression to having diabetes and if statin would be recommended. What is the name and dose of the medication? unknown Who prescribed it? (include first & last name) Felipa Shrestha MD Please route to: Triage Pool (If patient is waiting, route as high priority) documented in this encounter Plan of Treatment Not on filedocumented as of this encounter Visit Diagnoses Not on filedocumented in this encounter Care Teams City Bailiff Relationship Specialty Start Date End Date Felipa Shrestha MD PCP - General Family Practice 08/26/18 [address] [place] [address] documented as of this encounter
--- OUTSIDE RECORDS SUMMARY | 2022-06-24 15:12 | XMS_ITS | Encounter Summary ---
:1970 [facility] Address [address] [address] Care Team Providers Name Role Phone Felipa Shrestha MD Primary Care Provider Reason for Referral Consult/Transfer Care (Routine) - Closed Specialty Diagnoses / Procedures Referred By Contact Refer red To Contact Diagnoses Muscle ache Muscle weakness-general Felipa Shrestha MD [address] [place] [address] Referral ID Status Reason Start Date Expiration Date Visits Requ ested Visits Authorized [id number] Closed 08/02/2020 11/01/2021 1 1 Scheduling Instructions Your provider has recommended an appoint ment with Padmaja Schulte. You may call [phone] to schedule your appoi ntment.We suggest you call your health insurance company about your coverage an d benefits for this appointment. ICULTURE PROFESSOR Reason for Visit Reason Onset Date Comments Video Visit MEDICATION CHECK Video Visit 08/02/2020 Encounter Details Date Type Department Care Team Description 08/02/2020 Telemedicine Felipa Hong, Muscle ache (Primary Dx); Medicine Muscle weakness-general [address] [place] [address] [place] [phone] Social History Tobacco Use Types Packs/Day Years Used Date Smoking Tobacco: Never Smokeless Tobacco: Never Alcohol Use Standard Drinks/Week Comments Yes 0 (1 standard drink = 0.6 oz pure alcoho l) 2 servings a month Sex Assigned at Date Recorded Not on file documented as of this encounter Progress Notes Felipa Shrestha MD - 08/02/2020 7:30 AM CST Subjective: Today's visit with Sandra was conducted as a scheduled video visit. After she started norvasc this past summer, she had aching. Thought it was influenza at first. Improved but never fully resolved. Very cold muscle aches started again 5 weeks ago. Daily to the point ofinability to do anything. Motrin helps at times. Was hard to walk last week her leg was so painful, felt like jolly splints. Wonders if this could be norvasc related. Did get covid tested when this started 5 weeks ago. No joint redness or swelling. In the muscles, not joints. Aching is arms and legs, feels a cold sensation in the extremities as well. When this started had diarrhea, stomach cramps, fever, extreme fatigue, dizziness at first now resolved. All sx have resolved other than the aching. No ill contacts. No cough or SOB. No new med changes. Was on norvasc the entire time. She is becoming very weak in terms of muscle strength. Is very sedentary at this point. Legs feel very week. No AI conditions in her family. The right side seems worse than the left but the left is still involved. She does have ulcerative colitis. Objective: There were no vitals taken for this visit. Tired appearing. Assessment/Plan: Sandra was seen today for video visit, medication check and video visit. Diagnoses and all orders for this visit: Muscle ache Muscle weakness-general - Comp Metabolic Panel; Future - Neurology Consult-Adults - ESR - Sedimentation Rate; Future - Aldolase; Future - CK, Total; Future - HIV 1/2 Ag/Ab 4th Generation; Future Symptoms could be consistent with a viral myositis. She will stop in today for labs as above. Will also have her see Neurology emergently for further assessment. Reassured her I do not believe this to be a side effect of Norvasc. Clinician located at clinic. Patient located at home Billing based on: Complexity. Felipa Shrestha MD ICULTURE PROFESSOR documented in this encounter Plan of Treatment Scheduled Referrals Name Type Priority Associated Diagnoses Order [facility] Referral Routine Muscle ache Ordered: 08/02/2020 Consult-Adults Muscle weakness-general documented as of this encounter Visit Diagnoses Diagnosis Muscle ache - Primary Mylagia and myositis, unspecified Muscle weakness-general Muscle weakness (generalized) documented in this encounter Care Teams Engineering Production Liaison Relationship Specialty Start Date End Date Felipa Shrestha MD PCP - General Family Practice 08/26/[address] [place] [address] [place] [address] documented as of this encounter
--- OUTSIDE RECORDS SUMMARY | 2022-06-24 15:12 | XMS_ITS | Encounter Summary ---
:1970 Author Organization [facility] Address [address] [address] Care Team Providers Name Role Phone Felipa Shrestha MD Primary Care Provider Reason for Visit Reason Comments FAINTING SPELL Encounter Details Date Type Department Care Team Description 01/25/2020 Nurse Triage [facility] Felipa French MD FAINTING SPELL [address] [facility] [place] [address] [facility] [place] [address] [phone] (Wo rk) Social History Tobacco Use Types Packs/Day Years Used Date Smoking Tobacco: Never Smokeless Tobacco: Never Alcohol Use Standard Drinks/Week Comments Yes 0 (1 standard drink = 0.6 oz pure alcoho l) 2 servings a month Sex Assigned at Date Recorded Not on file documented as of this encounter Nursing Notes Lana Austin RN - 01/25/2020 4:55 PM CDT Called again went to [facility]. Left message Lana Austin RN - 01/25/2020 4:38 PM CDT Reason for Disposition ? ? Systolic BP < 90 and feeling dizzy, lightheaded, or weak Protocols used: LOW BLOOD [id number] Patient was transferred from Emergency Line. Spoke with patient; She states that she started a new blood pressure medication and today when she stood up she fainted twice, 5 minutes apart. She is sitting currently. She is talking in full sentences, but sounds slightly winded. She just took her blood pressure and it was 90/62. She is still feeling lightheaded. Patient is alone in the home currently Advised patient to call 911 and lie down with feet elevated. Patient verbalizes that she is able to call 911. Will call patient back to make sure she was able to reach them. Problem list reviewed as related to this call. documented in this encounter Plan of Treatment Not on filedocumented as of this encounter Visit Diagnoses Not on filedocumented in this encounter Care Teams Shellfish Meat Separator Operator Relationship Specialty Start Date End Date Felipa Shrestha MD PCP - General Family Practice 08/26/18 [address] [place] [address] documented as of this encounter
--- OUTSIDE RECORDS SUMMARY | 2022-06-24 15:12 | XMS_ITS | Encounter Summary ---
:1970 Author Organization [employer] Address [address] [address] Care Team Providers Name Role Phone Felipa Shrestha MD Primary Care Provider Encounter Details Date Type Department Care Team Description 05/06/2021 Lab Visit [facility] H/O vitamin B deficiency; [address] [employer] Hemiplegic migraine without status migrainosus, not intractable; [place] [address] Secondary seizure disorder ( HRC); [phone] Muscle aches; Iron deficiency Social History Tobacco Use Types Packs/Day Years [...] Priority Date/Time Associated Diagnosis Comme nts VITAMIN B6 (8HR Routine 05/06/2021 9:18 AM H/O vitamin B Resul ts for this FAST RECOMMENDED) CDT deficiency procedure are in the results section. IRON (NO IBC OR Routine 05/06/2021 9:18 AM Muscle aches Results for this SAT) CDT Iron deficiency procedure ar e in the results section. FERRITIN Routine 05/06/2021 9:18 AM Hemiplegic migraine Re sults for this CDT without status procedure are in migrainosus, not the results intractable section. Secondary seizure disorder (HRC) VITAMIN B12 ONLY Routine 05/06/2021 9:18 AM H/O vitamin B Resu lts for this CDT deficiency procedure are i n the results section. documented in this encounter Results Iron (no IBC or Sat) (05/06/2021 9:18 AM CDT) athologist Signature Iron 73 50 - 170 05/06/2021 [facility] mcg/dL 3:27 PM CDT LABORATORY Specimen Anatomical Collection Method / Collection Time Recei jagdeep Time (Source) Location / Volume Laterality Blood Venipuncture / 05/06/2021 9:18 05/06/2021 9:18 Unknown AM CDT AM CDT Dino Zamora MD LAB_1 Performing Organization Address City/State/ZIP [facility] Phon e Number [facility] [address] [place] [address] Ferritin (05/06/2021 9:18 AM CDT) athologist Signature Ferritin 47 9 - 204 05/06/2021 [facility] ng/mL 2:15 PM CDT LABORATORY Specimen Anatomical Collection Method / Collection Time Recei jagdeep Time (Source) Location / Volume Laterality Blood Venipuncture / 05/06/2021 9:18 05/06/2021 9:18 Unknown AM CDT AM CDT Dino Zamora MD LAB_1 Performing Organization Address City/[facility] Phon e Number [facility] [address] [place] [address] Vitamin B12 Only (05/06/2021 9:18 AM CDT) athologist Signature Vitamin B12 363 213 - 816 05/06/2021 [facility] pg/mL 2:15 PM CDT LABORATORY Specimen Anatomical Collection Method / Collection Time Recei jagdeep Time (Source) Location / Volume Laterality Blood Venipuncture / 05/06/2021 9:18 05/06/2021 9:18 Unknown AM CDT AM CDT Dino Zamora MD LAB_1 Performing Organization Address City/[facility] Phon e Number [facility] [address] [place] [address] Vitamin B6 (8Hr Fast Recommended) (05/06/2021 9:18 AM CDT) athologist Signature Vitamin B6 50.5 20.0 - 05/09/2021 [facility] 125.0 10:05 PM CDT nmol/L Comment: INTERPRETIVE INFORMATION: Vitamin B6 (Py ridoxal 5-Phosphate) Pyridoxal 5'-phosphate measured in a spe cimen collected following an 8-hour or overnight fast accurately i ndicates vitamin B6 nutritional status. Non-fasting specimen concentration reflects recent vitamin intake. This test was developed and its performa nce characteristics determined by [facility]. It has not been cleared or approved by the [place] Food and Drug Adminis tration. This test was performed in a CLIA certified laboratory and is intended for clinical purposes. Performed By: [facility] [address] [place] [address] Corporate Technical Recruiter: Nohemi Padgett MD Specimen Anatomical Collection Method / Collection Time Recei jagdeep Time (Source) Location / Volume Laterality Blood Venipuncture / 05/06/2021 9:18 05/06/2021 9:18 Unknown AM CDT AM CDT Dino Zamora MD LAB_1 Performing Organization Address City/State/ZIP Code Phon e Number [facility] [address] [place], [place] [id number] documented in this encounter Visit Diagnoses Diagnosis H/O vitamin B deficiency Personal history of nutritional deficien cy Hemiplegic migraine without status migra inosus, not intractable Hemiplegic migraine, without mention of intractable migraine without mention of status migrainosus Secondary seizure disorder (HRC) Unspecified epilepsy without mention of intractable epilepsy Muscle aches Iron deficiency (HRC) Other disorders of iron metabolism documented in this encounter Care Teams Head Of Acquisitions Relationship Specialty Start Date End Date Felipa Shrestha MD PCP - General Family Practice 08/26/[address] [place] [address] [place] [address] documented as of this encounter
--- OUTSIDE RECORDS SUMMARY | 2022-06-24 15:12 | XMS_ITS | Encounter Summary ---
:1970 Author Organization [facility] Address [address], [place] [address] Care Team Providers Name Role Phone Felipa Shrestha MD Primary Care Provider Encounter Details Date Type Department Care Team Description 12/03/2020 Lab Visit [facility]; [address] [address] Nocturnal muscle cramps; [place] [address] Hemiplegic migraine without status migrainosus, not intractable; [phone] Chronic ulcerat jasmin colitis with complication, unspecified [...] Name Priority Date/Time Associated Diagnosis Comme nts FERRITIN Routine 12/03/2020 11:26 AM Twitching Results for this CDT Nocturnal muscle procedure a re in cramps the results section. C-REACTIVE PROTEIN Routine 12/03/2020 11:26 AM Hemiplegic migr sunita Results for this CDT without status procedure are in migrainosus, not the results intractable section. Chronic ulcerative colitis with complication, unspecified location (HRC) LD TOTAL (LDH) Routine 12/03/2020 11:26 AM Twitching Results for this CDT Nocturnal muscle procedure a re in cramps the results section. IRON PROFILE Routine 12/03/2020 11:26 AM Twitching Results for this (IRON,TIBC,%SAT.(CA CDT Nocturnal muscle proc edure are in LC)) cramps the results section. CK, TOTAL Routine 12/03/2020 11:26 AM Twitching Results for this CDT Nocturnal muscle procedure a re in cramps the results section. ESR Routine 12/03/2020 11:26 AM Hemiplegic migraine R esults for this CDT without status procedure are in migrainosus, not the results intractable section. Chronic ulcerative colitis with complication, unspecified location (HRC) documented in this encounter Results C-Reactive Protein (12/03/2020 11:26 AM CDT) P athologist Signature C-Reactive 0.7 0.0 - 0.7 12/03/2020 [facility] Protein mg/dL 1:10 PM CDT LABORATORY Specimen Anatomical Collection Method / Collection Time Recei jagdeep Time (Source) Location / Volume Laterality Blood Venipuncture / 12/03/2020 11:26 1 Unknown AM CDT 11:26 AM CDT Dino Zamora MD LAB_1 Performing Organization Address City/[facility]/ZIP Code Phon e Number [facility] [address] [place], [place] [phone] ESR (12/03/2020 11:26 AM CDT) [facility] Method Time Signature Sedimentation Rate 15 0 - 20 12/03/2020 [facility] mm/hr 12:07 PM CDT LABORATORY Specimen Anatomical Collection Method / Collection Time Recei jagdeep Time (Source) Location / Volume Laterality Blood Venipuncture / 12/03/2020 11:26 1 Unknown AM CDT 11:26 AM CDT Dino Zamora MD LAB_1 Performing Organization Address City/[facility]/ZIP Code Phon e Number [facility] [address] [place] [phone] LD Total (LDH) (12/03/2020 11:26 AM CDT) P athologist Signature LD 159 119 - 235 12/03/2020 [facility] U/L 1:10 PM CDT LABORATORY Specimen Anatomical Collection Method / Collection Time Recei jagdeep Time (Source) Location / Volume Laterality Blood Venipuncture / 12/03/2020 11:26 1 Unknown AM CDT 11:26 AM CDT Dino Zamora MD LAB_1 Performing Organization Address [facility]/ZIP Code Phon e Number [facility] [address] [place] [address] 5786 (ABNORMAL) CK, Total (12/03/2020 11:26 AM CDT) athologist [facility] CK, Total 27 (L) 29 - 168 12/03/2020 [facility] U/L 1:10 PM CDT LABORATORY Specimen Anatomical Collection Method / Collection Time Recei jagdeep Time (Source) Location / Volume Laterality Blood Venipuncture / 12/03/2020 11:26 1 Unknown AM CDT 11:26 AM CDT Dino Zamora MD LAB_1 Performing Organization Address [facility] Phon e Number [facility] [address] [place] [address]13 Iron Profile (Iron,TIBC,%Sat.(Calc)) (12/03/2020 11:26 AM CDT) athologist [facility] Iron 92 50 - 170 12/03/2020 [facility] mcg/dL 4:04 PM CDT LABORATORY Transferrin 299 180 - 382 12/03/2020 [facility] mg/dL 4:04 PM CDT LABORATORY TIBC, Calculated 374 240 - 450 12/03/2020 [facility] mcg/dL 4:04 PM CDT LABORATORY % Saturation, 25 10 - 50 % 12/03/2020 [facility] Calculated 4:04 PM CDT LABORATORY Specimen Anatomical Collection Method / Collection Time Recei jagdeep Time (Source) Location / Volume Laterality Blood Venipuncture / 12/03/2020 11:26 1 Unknown AM CDT 11:26 AM CDT Dino Zamora MD LAB_1 Performing Organization Address City/[facility]/ZIP Code Phon e Number [facility] [address] [place] [address] Ferritin (12/03/2020 11:26 AM CDT) P athologist Signature Ferritin 46 9 - 204 12/03/2020 [facility] ng/mL 4:04 PM CDT LABORATORY Specimen Anatomical Collection Method / Collection Time Recei jagdeep Time (Source) Location / Volume Laterality Blood Venipuncture / 12/03/2020 11:26 1 Unknown AM CDT 11:26 AM CDT Dino Zamora MD LAB_1 Performing Organization Address City/State/ZIP Code Phon e Number [facility] [address] [place] [address] documented in this encounter Visit Diagnoses Diagnosis Twitching Abnormal involuntary movements Nocturnal muscle cramps Cramp of limb Hemiplegic migraine without status migra inosus, not intractable Hemiplegic migraine, without mention of intractable migraine without mention of status migrainosus Chronic ulcerative colitis with complica tion, unspecified location (HRC) documented in this encounter Care Teams Wood Engraver Relationship Specialty Start Date End Date Felipa Shrestha MD PCP - General Family Practice 08/26/18 [address] [place] [place] [address] documented as of this encounter
--- OUTSIDE RECORDS SUMMARY | 2022-06-24 15:13 | XMS_ITS | Encounter Summary ---
:1970 Author Organization [facility] Address [address] [address] Care Team Providers Name Role Phone Victor M Shrestha MD Primary Care Provider Reason for Visit Reason Comments Refill verapamil (VERELAN) 240 MG 2 4 hour release capsule [Pharmacy Med Name: Verapamil HCl ER Oral Capsul e Extended Release 24 Hour 240 MG]; hydroCHLOROthiazide (ORETIC) 25 MG tablet [Pharmacy Med Name: hydroCHLOROthiazide Oral Tab let 25 MG] Encounter Details Date Type Department Care Team Description 11/03/[address] [facility] Victor M Shrestha, Refill (verapamil (VERELAN) Medicine MD 240 MG 24 hour release capsule [address] [place] [Pharmacy [place]: [place] [address] [place], [place] HCl ER Oral Capsule Extended [phone] Release 24 Hour 240 MG]; [phone] hydroCHLOROthia zide (ORETIC) (Work) 25 MG tablet [Pharmacy Med [phone] Name: hydroCHLO ROthiazide Oral (Fax) Tablet 25 MG]) Social History Tobacco Use Types Packs/Day Years Used Date Smoking Tobacco: Never Smokeless Tobacco: Never Alcohol Use Standard Drinks/Week Comments Yes 0 (1 standard drink = 0.6 oz pure alcoho l) 2 servings a month Sex Assigned at Date Recorded Not on file documented as of this encounter Nursing Notes Ericka Fong RN - 11/03/2019 2:48 PM CDT Renewed medication per medication refill protocol. Requested Prescriptions Pending Prescriptions Disp Refills verapamil (VERELAN) 240 MG 24 hour release capsule [Pharmacy Med Name: Verapamil HCl ER Oral Capsule Extended Release 24 Hour 240 MG] 90 Capsule 0 Sig: Take 1 Capsule by mouth every evening. hydroCHLOROthiazide (ORETIC) 25 MG tablet [Pharmacy Med Name: hydroCHLOROthiazide Oral Tablet 25 MG] 90 Tablet 0 Sig: TAKE 1 TABLET BY MOUTH DAILY. Interface, Out Surescripts Prov Query - 11/03/2019 12:54 PM CDT hydroCHLOROthiazide (ORETIC) 25 MG tablet [Pharmacy Med Name: hydroCHLOROthiazide Oral Tablet 25 MG] Medication started: 09/21/2018 Last ordered by VICTOR M SHRESTHA: 09/21/2018 (408 days ago) QTY: 90, Refills: 3, Sig: take 1 tablet by mouth daily. (unchanged) -> Refill x 3 months (courtesy refill. overdue for an office visit, Cr check, K check and Na check) Last qualifying visit: 09/21/2018 (with VICTOR M SHRESTHA) Next scheduled visit: 11/06/2019 (in Family Practice) SBP: 125 mm Hg on 09/21/2018 DBP: 95 mm Hg on 09/21/2018 Cr: 0.9 mg/dL on 09/21/2018 Na: 138 mEq/L on 09/21/2018 K: 4.2 mEq/L on 09/21/2018 PATIENT IS DUE FOR: - HBA1C (PN ONLY) (Sent to [facility]) - BASIC METABOLIC PANEL (Sent to [facility]) Powered by [employer], Reference: [id number], 11/03/2019 12:53:59 PM CDT, Pool: [facility] RE[facility] ([id number]) verapamil (VERELAN) 240 MG 24 hour release capsule [Pharmacy Med Name: Verapamil HCl ER Oral CapsuleExtended Release 24 Hour 240 MG] Medication started: 09/21/2018 Last ordered by VICTOR M SHRESTHA (408 days ago) QTY: 90, Refills: 3, Sig: take 1 capsule by mouth every evening. (unchanged) -> Refill x 3 months (courtesy refill. overdue for an office visit) Last qualifying visit: 09/21/2018 (with VICTOR M SHRESTHA) Next scheduled visit: 11/06/2019 (in Family Practice) SBP: 125 mm Hg on 09/21/2018 DBP: 95 mm Hg on 09/21/2018 PATIENT IS DUE FOR: - HBA1C (PN ONLY) (Sent to [facility]) - BASIC METABOLIC PANEL (Sent to [facility]) Powered by [employer], Reference: [id number], 11/03/2019 12:53:59 PM CDT, Pool: [facility] REFI[facility] ([id number]) documented in this encounter Plan of Treatment Not on filedocumented as of this encounter Visit Diagnoses Diagnosis Hemiplegic migraine without status migra inosus, not intractable Hemiplegic migraine, without mention of intractable migraine without mention of status migrainosus Pre-diabetes Other abnormal glucose Essential hypertension (HRC) Unspecified essential hypertension documented in this encounter Care Teams Managing Consultant Relationship Specialty Start Date End Date Victor M Shrestha MD PCP - General Family Practice 08/26/[address] [place] [address] documented as of this encounter
--- OUTSIDE RECORDS SUMMARY | 2022-06-24 15:13 | XMS_ITS | Encounter Summary ---
:1970 Author Organization [facility] Address [address], [place] [address] Care Team Providers Name Role Phone Victor M Shrestha MD Primary Care Provider Reason for Visit Reason Comments Refill metFORMIN XR (GLUCOPHAGE XR) 500 MG 24 hour release tablet [Pharmacy Med Name: metFORMIN HCl ER Oral Tablet Extended Release 24 Hour 500 MG] Encounter Details Date Type Department Care Team Description 01/02/2020 Refill [facility] Victor M Shrestha MD Refill (metFORMIN XR Medicine [address] (GLUCOPHAGE XR) 500 MG [address] [place], [place] 24 hour [place] [address] [Pharmacy Med Name: [phone] (Wo rk) metFORMIN HCl ER Oral Tablet [...] documented as of this encounter Nursing Notes Thais Gomez - 01/09/2020 1:34 PM CDT Medication Refill - Overdue for Visit Called patient, was: Unable to reach patient 2nd call attempted. Unsuccessful in reaching patient. Frontline: Route to clinician identified in nursing documentation below Clinician Action: Unsuccessful in reaching patient to schedule, requests refill. Recommend using Refuse All quick action in toolbar, to address request. Rosie Ruiz - 01/04/2020 10:50 AM CDT (Frontline/PSC: If caller has no additional questions after reading below message, update note and close encounter) Left message for patient to call back. Frontline/[facility] ([facility]), please inform patientof below message. Patient is due for a med check. Please help patient schedule phone visit or video visit. If patient chooses to have a video visit, please help set up google duo. If patient would like an in clinic visit, please schedule after January 21 Medication Refill - Overdue for Visit Called patient, was: Unable to reach patient 1st call attempted. Left message to call back. PSC Action: Patient needs to schedule an appointment for their medication refill. Schedule and verify if they have enough medication until their next appointment. If additional medication is needed, route this encounter high priority to Refill Pool ([phone]) Moshe Cordova RN - 01/04/2020 8:15 AM CDT Further Assistance Needed on Refill from Manager Language Patient is overdue for Office visit and lab(s). An office visit is overdue (performed 16 months ago, required every 12 months). ? -> GFR (CrCl) estimated is overdue (performed 16 months ago, required every 12 months) ? -> Rapid A1C ??is overdue (performed 16 months ago, required every 6 months) ? Last qualifying visit: 09/21/2018 (with VICTOR M SHRESTHA) ? Next scheduled visit: None ?? Please call patient to schedule a Video Visit and document using .MICHELLE. After attempting to schedule patient: Please route to: Victor M Shrestha MD Requested Prescriptions Pending Prescriptions Disp Refills ??? metFORMIN XR (GLUCOPHAGE XR) 500 MG 24 hour release tablet [Pharmacy Med Name: metFORMIN HCl ER Oral Tablet Extended Release 24 Hour 500 MG] 120 Tablet 0 Sig: TAKE 4 TABLETS BY MOUTH DAILY WITH BREAKFAST. Interface, Out Surescripts Prov Query - 01/02/2020 6:13 PM CDT metFORMIN XR (GLUCOPHAGE XR) 500 MG 24 hour release tablet [Pharmacy Med Name: metFORMIN HCl ER OralTablet Extended Release 24 Hour 500 MG] Medication started: 09/21/2018 Last ordered by VICTOR M SHRESTHA: 11/06/2019 (57 days ago) QTY: 120, Refills: 0, Sig: take 4 tablets by mouth daily with breakfast. (unchanged) -> An office visit is overdue (performed 16 months ago, required every 12 months). -> GFR (CrCl) estimated is overdue (performed 16 months ago, required every 12 months) -> Rapid A1C is overdue (performed 16 months ago, required every 6 months) Last qualifying visit: 09/21/2018 (with VICTOR M SHRESTHA) Next scheduled visit: None GFR (CrCl) estimated: >60 ml/min on 09/21/2018 Rapid A1C : 5.8 % on 09/21/2018 Powered by [employer], Reference: [id number], 01/02/2020 6:13:01 PM CDT, Pool: [facility] RICH REFILL ([id number]) documented in this encounter Plan of Treatment Not on filedocumented as of this encounter Visit Diagnoses Diagnosis Pre-diabetes Other abnormal glucose documented in this encounter Care Teams Finance Manager Relationship Specialty Start Date End Date Victor M Shrestha MD PCP - General Family Practice 08/26/[address] [place] [address] documented as of this encounter
--- OUTSIDE RECORDS SUMMARY | 2022-06-24 15:13 | XMS_ITS | Encounter Summary ---
:1970 Author Organization [facility] Address [address], [place] [address] Care Team Providers Name Role Phone Victor M Shrestha MD Primary Care Provider Reason for Visit Reason Comments Refill metFORMIN XR (GLUCOPHAGE XR) 500 MG 24 hour release tablet [Pharmacy Med Name: metFORMIN HCl ER Oral Tablet Extended Release 24 Hour 500 MG] Encounter Details Date Type Department Care Team Description 01/11/2020 Refill [facility] Victor M Shrestha MD Refill (metFORMIN XR Medicine [address] (GLUCOPHAGE XR) 500 MG [address] [place], [place] 24 [place] [address] [Pharmacy Med Name: [phone] (Wo rk) metFORMIN HCl ER Oral Tablet [...] documented as of this encounter Nursing Notes Rosie Ruiz - 01/12/2020 4:28 PM CDT Medication Refill - Overdue for Visit Called patient, was: Successful in reaching patient We recently received a refill request for one of your medications. To continue managing your medication refills, your clinician would like to see you for a(n): Patient is due for a(n): office visit Patient declined to schedule due to: Patient would like to stay with pcp who is practicing in [place]. Declined to schedule with Kristian. I will send a request to see if a temporary refill can be provided. Please check with your pharmacy on the status of your refill. We will notify you if it has not been approved. Frontline: Route to clinician identified in nursing documentation below Clinician Action: Patient declines to schedule, requests refill. Recommend using Rx Final or Rx Deny quick action to address request. Moshe Cordova RN - 01/11/2020 2:48 PM CDT Further Assistance Needed on Refill from Hop Trainer Patient is overdue for Office visit and [...] BREAKFAST. Interface, Out Surescripts Prov Query - 01/11/2020 9:00 AM CDT metFORMIN XR (GLUCOPHAGE XR) 500 MG 24 hour release tablet [Pharmacy Med Name: metFORMIN HCl ER OralTablet Extended Release 24 Hour 500 MG] Medication started: 09/21/2018 Last ordered by VICTOR M SHRESTHA: 11/06/2019 (66 days ago) QTY: 120, Refills: 0, Sig: [...] : 5.8 % on 09/21/2018 Powered by [employer], Reference: [id number], 01/11/2020 9:00:04 AM CDT, Pool: [facility] FP RE[facility] ([id number]) documented in this encounter Plan of Treatment Not on filedocumented as of this encounter Visit Diagnoses Diagnosis Pre-diabetes Other abnormal glucose documented in this encounter Care Teams Director Life Relationship Specialty Start Date End Date Victor M Shrestha MD PCP - General Family Practice 08/26/[address] [place] [address] [place] [address] documented as of this encounter
--- OUTSIDE RECORDS SUMMARY | 2022-06-24 15:13 | XMS_ITS | Encounter Summary ---
:1970 Author [facility] Address [address], [place] [address] Care Team Providers Name Role Phone Felipa Shrestha MD Primary Care Provider Reason for Referral Consult/Transfer Care (Routine) - Closed Specialty Diagnoses / Procedures Referred By Contact Refer red To Contact Diagnoses Chronic ulcerative colitis with complication, unspecified location (HRC) Felipa Shrestha MD [address] [place] [address] [place] [address] Referral ID Status Reason Start Date Expiration Date Visits Requ ested Visits Authorized [id number] Closed 09/21/2018 12/21/2019 1 1 Scheduling Instructions Your provider has recommended an appoint ment with [facility]. You may call [phone] to gemma edule your appointment. If you do not schedule an appointment within the next 1 to 3 business days, we will call you to help arrange your appointment. We sugges t you call your health insurance company about your coverage and benefits for thi s appointment. 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, not intractable; (Work) Pre-diabetes; [phone] Nonintractable epilepsy without status epilepticus, unspecified epilepsy type ([facility]); (Fax) Establishing ca re with new doctor, encounter for Social History Tobacco Use Types Packs/Day Years Used Date Smoking Tobacco: Never Smokeless Tobacco: Never Alcohol Use Standard Drinks/Week Comments Yes 0 (1 standard drink = 0.6 oz pure alcoho l) 2 servings a month Sex Assigned at Date Recorded Not on file documented as of this encounter Last Filed Vital Signs Vital Sign Reading Time Taken Comments Blood Pressure 125/95 09/21/2018 10:41 AM PORTABLE TRACKMAN Pulse 106 09/21/2018 10:41 AM PORTABLE TRACKMAN Temperature - - Respiratory Rate - - Oxygen Saturation - - Inhaled Oxygen Concentration - - Weight 113.4 kg (250 lb) 09/21/2018 10:31 AM PORTABLE TRACKMAN Height 172.1 cm (5' 7.75) 09/21/2018 10:31 AM PORTABLE TRACKMAN Body Mass Index 38.29 09/21/2018 10:31 AM PORTABLE TRACKMAN documented in this encounter Patient Instructions Patient InstructionsFelipa Shrestha MD - 09/21/2018 10:30 AM CST Images from the original note were not included. Headache clinic: Dr. Chase. Try to bring in a few BP readings to our visit in 3 months. Well Visit, Ages 18 to 50: Care Instructions Your Care Instructions Physical exams can help you stay healthy. Your doctor has checked your overall health and may have suggested ways to take good care of yourself. He or she also may have recommended tests. At home, you can help prevent illness with healthy eating, regular exercise, and other steps. Follow-up care is a page part of your treatment and safety. Be sure to make and go to all appointments, and call your doctor if you are having problems. It's also a good idea to know your test results and keep a list of the medicines you take. How can you care for yourself at home? ?? Reach and stay at a healthy weight. This will lower your risk for many problems, such as obesity,diabetes, heart disease, and high blood pressure. ?? Get at least 30 minutes of physical activity on most days of the week. Walking is a good choice. You also may want to do other activities, such as running, swimming, cycling, or playing tennis or team sports. Discuss any changes in your exercise program with your doctor. ?? Do not smoke or allow others to smoke around you. If you need help quitting, talk to your doctor about stop-smoking programs and medicines. These can increase your chances of quitting for good. ?? Talk to your doctor about whether you have any risk factors for sexually transmitted infections (STIs). Having one sex partner (who does not have STIs and does not have sex with anyone else) is a good way to avoid these infections. ?? Use control if you do not want to have children at this time. Talk with your doctor about the choices available and what might be best for you. ?? Protect your skin from too much sun. When you're outdoors from 10 a.m. to 4 p.m., stay in the shade or cover up with clothing and a hat with a wide brim. Wear sunglasses that block UV rays. Even when it's cloudy, put broad-spectrum sunscreen (SPF 30 or higher) on any exposed skin. ?? See a dentist one or two times a year for checkups and to have your teeth cleaned. ?? Wear a seat belt in the car. ?? Drink alcohol in moderation, if at all. That means no more than 2 drinks a day for men and 1 drink a day for women. Follow your doctor's advice about when to have certain tests. These tests can spot problems early. For everyone ?? Cholesterol. Have the fat (cholesterol) in your blood tested after age 20. Your doctor will tell you how often to have this done based on your age, family history, or other things that can increase your risk for heart disease. ?? Blood pressure. Have your blood pressure checked during a routine doctor visit. Your doctor will tell you how often to check your blood pressure based on your age, your blood pressure results, and other factors. ?? Vision. Talk with your doctor about how often to have a glaucoma test. ?? Diabetes. Ask your doctor whether you should have tests for diabetes. ?? Colon cancer. Have a test for colon cancer at age 50. You may have one of several tests. If you are younger than 50, you may need a test earlier if you have any risk factors. Risk factors include whether you already had a precancerous polyp removed from your colon or whether your parent, brother, si ster, or child has had colon cancer. For women ?? Breast exam and mammogram. Talk to your doctor about when you should have a clinical breast exam and a mammogram. Medical experts differ on whether and how often women under 50 should have these tests. Your doctor can help you decide what is right for you. ?? Pap test and pelvic exam. Begin Pap tests at age 21. A Pap test is the best way to find cervical cancer. The test often is part of a pelvic exam. Ask how often to have this test. ?? Tests for sexually transmitted infections (STIs). Ask whether you should have tests for STIs. Youmay be at risk if you have sex with more than one person, especially if your partners do not wear condoms. For men ?? Tests for sexually transmitted infections (STIs). Ask whether you should have tests for STIs. Youmay be at risk if you have sex with more than one person, especially if you do not wear a condom. ?? Testicular cancer exam. Ask your doctor whether you should check your testicles regularly. ?? Prostate exam. Talk to your doctor about whether you should have a blood test (called a PSA test)for prostate cancer. Experts differ on whether and when men should have this test. Some experts suggest it if you are older than 45 and are -[place] or have a father or brother who got prostatecancer when he was younger than 65. When should you call for help? Watch closely for changes in your health, and be sure to contact your doctor if you have any problems or symptoms that concern you. Where can you learn more? 1. Go to [employer] or [employer]. 2. Enter P072 in the search box. Current as of: November 17, 2017 Content Version: 11.9 ?? [id number] [employer]. ABLE TRACKMAN documented in this encounter Progress Notes Felipa Shrestha MD - 09/21/2018 10:30 AM CST Subjective: Preventive Exam & Pelvic SUBJECTIVE: Patient presents for a routine preventive physical exam. The patient has the following concerns: She has ulcerative colitis. She recently moved to [place] from [place]. She was on Lialda however,her insurance no longer covers it. She has not seen her wheat shipper a long time. Last colonoscopy was 6-7 years ago she thinks. She has a history of hemiplegic migraines with secondary seizures. She uses an oral triptan most ofthe time for that with good effect however, if she has hemiplegia at the onset, she will need to do injectable triptan. Her does this for her as she is unable to move. She uses Phenergan for the nausea. She occasionally will need Toradol for the pain. She is looking for a new migraine physician. She was diagnosed male years ago. She uses amitriptyline to help with prevention and anxiety and sleep. Her sleep has been poor recently. She gets migraines about 3 times a week which she is actuallyquite happy with. She is on medical disability and Medicare. Hypertension: No chest pain, shortness of breath, new headaches. Just recently began exercising again. She is in the process of a weight loss program which is going well. Past Medical History: History reviewed. No pertinent past medical history. Manager Regulatory History: S/p hysterectomy Other Medical/Surgical History: Past Surgical History: Procedure Laterality Date ??? APPENDECTOMY ??? CHOLECYSTECTOMY ??? LAPAROSCOPY ??? TOTAL ABDOMINAL HYSTERECTOMY Adverse Drug Reactions: Allergies Allergen Reactions ??? Fentanyl ??? Morphine ??? Valium [Diazepam] ??? Vistaril [Hydroxyzine] ??? Zofran [Ondansetron] Current Medications: Reviewed today and updated on Health Profile. Family History: (First degree family members) Family History Problem Relation Age of Onset ??? Hypertension Mother ??? Bipolar Disorder Mother ??? Hypertension Father ??? Cancer, Prostate Father ??? Cancer, Colon Father 77 ??? Cancer, Bladder Father ??? Diabetes Father ??? Migraines Sister ??? Diabetes Maternal Grandmother ??? Diabetes Maternal Grandfather ??? Diabetes Paternal Grandmother ??? Diabetes Paternal Grandfather ??? Migraines Child Social History: Social History Socioeconomic History ??? Marital status: Spouse name: Not on file ??? Number of children: Not on file ??? Years of education: Not on file ??? Highest education level: Not on file Social Needs ??? Financial resource strain: Not on file ??? Food insecurity - worry: Not on file ??? Food insecurity - inability: Not on file ??? Transportation needs - medical: Not on file ??? Transportation needs - non-medical: Not on file Occupational History ??? Not on file Tobacco Use ??? Smoking status: Never Smoker ??? Smokeless tobacco: Never Used Substance and Sexual Activity ??? Alcohol use: Yes Comment: 2 servings a month ??? Drug use: Never ??? Sexual activity: Not Currently Partners: Male control/protection: None Other Topics Concern ??? Bike Helmet Not Asked ??? City [place] Not Asked ??? Exercise Not Asked ??? Guns in home Not Asked ??? Seat Belt Not Asked ??? Special Diet No ??? Weight Concern Not Asked Social History Narrative Medically disabled. , 2 daughters. 1 dog. Preventive Health Assessment: Health maintenance alerts are reviewed and updated. Calcium intake is not adequate. 1 per day Diet: 3-4 fruits and veggies, 0 serving per week of red meat. The patient does drink soda, 2-3 per week. Exercise is adequate. Just restarted. The patient practices safe sex. Seatbelts are used at all times. Tetanus immunization is up-to-date. flu shot is not up to date for this season. Declines. Sun protection is used. Mammogram is not up to date, has never had. Colonoscopy or sigmoidoscopy done: last done 6-7 years ago. Recent lipid screen has not been performed. Review of Systems: With the exception of any items noted above, the remainder of the complete ROS is negative. OBJECTIVE: Vital Signs: Filed Vitals: 09/21/18 1031 09/21/18 1041 BP: (!) 123/98 (!) 125/95 Pulse: (!) 104 (!) 106 Weight: 250 lb (113.4 kg) Height: 5' 7.75 (1.721 m) General: Patient alert, in NAD. HEENT: PERRLA. Bilateral TM's, external canals, oropharynx normal. Neck: Supple, without thyromegaly or mass. Upper Extremities: FROM with good strength, no lesions or deformities. CV: RRR without murmurs, rubs or gallops. Resp: Clear to auscultation without crackles, wheezes or distress. Abdomen: Soft, non-tender, without hepatosplenomegaly or masses Breasts: Symmetrical, nontender, without masses or nipple discharge. Lymphatic: No neck or supraclavicular lymphadenopathy. Lower Extremities: no edema, lesions, or deformity. Skin: No lesions or rashes on exposed skin. Neuro: CN II-XII, motor function intact. Psychiatric: Alert & oriented with normal affect and insight. Patient does not appear depressed or anxious. ASSESSMENT/ PLAN: Sandra was seen today for annual exam. Diagnoses and all orders for this visit: Well woman exam (no gynecological exam) - Lipid Panel and Direct LDL(If Needed); Future - MM Mammogram Screening Bilat W CAD; Future Chronic ulcerative colitis with complication, unspecified location (HRC) - predniSONE (DELTASONE) 10 MG tablet; Take 1 Tablet by mouth daily. As needed for colitis flair. - Gastroenterology Consult-Adults Current moderate episode of major depressive disorder without prior episode (HRC) In remission Essential hypertension (HRC) she is getting back into a workout routine and is losing weight on keto diet. She will track her blood pressures and follow-up in 3 months ASX. - hydroCHLOROthiazide (ORETIC) 25 MG tablet; Take 1 Tablet by mouth daily. - Basic Metabolic Panel; Future SALLY (generalized anxiety disorder) (HRC) Well-controlled, amitriptyline at night has been helpful. She no longer is on an SSRI. Hemiplegic migraine without status migrainosus, not intractable Increased amitriptyline From 25 tp 50 mg. - verapamil (VERELAN) 240 MG 24 hour release capsule; Take 1 Capsule by mouth every evening. - SUMAtriptan (IMITREX) 6 MG/0.5ML injection; Inject 0.5 mL subcutaneously once as needed. - promethazine (PHENERGAN) 25 MG tablet; Take 1 Tablet by mouth every 6 hours as needed for Nausea. - predniSONE (DELTASONE) 10 MG tablet; Take 1 Tablet by mouth daily. As needed for colitis flair. - ketorolac (TORADOL) 10 MG tablet; Take 1 Tablet by mouth every 6 hours as needed (for migraines). - amitriptyline (ELAVIL) 50 MG tablet; Take 1 Tablet by mouth daily at bedtime. - frovatriptan (FROVA) 2.5 MG tablet; Take 1 Tablet by mouth once as needed for up to 1 dose. Pre-diabetes - Hgb A1c; Future - metFORMIN XR (GLUCOPHAGE XR) 500 MG 24 hour release tablet; Take 4 Tablets by mouth daily with breakfast. Nonintractable epilepsy without status epilepticus, unspecified epilepsy type (HRC) Establishing care with new doctor, encounter for Preventive health counseling provided: diet, exercise, PAP tests, sun screen, calcium, breast exams Please note that parts of this document were created with voice recognition dictation. Typographicalerrors may result. ABLE TRACKMAN documented in this encounter Plan of Treatment Scheduled Referrals Name Type Priority Associated Diagnoses Order S chedule Gastroenterology Referral Routine Chronic ulcerative Order ed: Consult-Adults colitis with 09/21/2018 complication, unspecified location ([facility]) documented as of this encounter Results (ABNORMAL) Basic Metabolic Panel (09/21/2018 11:43 AM PORTABLE TRACKMAN) athologist Signature Creatinine 0.90 0.55 - PN SOFT Serum 1.02 mg/dL Lab Glucose 126 (H) 70 - 100 PN SOFT mg/dL Comment: The stated glucose range is for the fast ing state. Non-fasting glucose range is 70-180 mg/d L CO2 20 (L) 22 - 31 mmol/L PN SOFT Chloride 103 98 - 109 mmol/L PN SOFT Potassium 4.2 3.5 - 5.2 mmol/L PN SOFT Sodium 138 136 - 145 mmol/L PN SOFT Blood Urea Nitrogen 17 9 - 26 mg/dL PN SOFT Calcium 10.0 8.4 - 10.4 mg/dL PN SOFT Est GFR Am >60 >60 mL/min/1.73m2 PN SOFT Est GFR Non-Afr Am >60 >60 mL/min/1.73m2 PN SOFT Comment: Normal>60, moderate decrease 30 - 59, se kasie decrease 15 - 29, renal failure <15 mL/min/1.73 m2 NOTE: ??Choose the eGFR result above jose ropriate for the race of the patient. Specimen Anatomical Collection Method Collection Time Receive d Time (Source) Location / / Volume Laterality 09/21/2018 11:43 09/21/2018 AM PORTABLE TRACKMAN 11:43 AM PORTABLE TRACKMAN Narrative PN SOFT - 09/21/2018 12:23 PM PORTABLE TRACKMAN Performed at [facility], [address] [place] [address] CLIA number [id number] Felipa Shrestha MD LAB_1 Performing Organization Address [facility] Phon e Number PN SOFT [address] [place] [address] (ABNORMAL) Lipid Panel and Direct LDL(If Needed) (09/21/2018 11:43 AM PORTABLE TRACKMAN) [facility] Method Time Signature Cholesterol 213 (H) 0 - 199 PN SOFT mg/dL Triglycerides 130 4 - 149 PN SOFT mg/dL HDL Cholesterol 41 >39 mg/dL PN SOFT Cholesterol/HDL 5.2 PN SOFT Ratio Screen LDL Calculated 146 (H) 19 - 130 PN SOFT mg/dL Non HDL Chol, Calc 172 (H) 0 - 159 PN SOFT mg/dL Length Of Fast 12.0 PN SOFT Specimen Anatomical Collection Method Collection Time Receive d Time (Source) Location / / Volume Laterality 09/21/2018 11:43 09/21/2018 AM PORTABLE TRACKMAN 11:43 AM PORTABLE TRACKMAN Narrative PN SOFT - 09/21/2018 12:23 PM PORTABLE TRACKMAN Performed at [facility], [address] [place] [address] CLIA number [id number] Felipa Shrestha MD LAB_1 Performing Organization Address [facility] Phon e Number PN SOFT [address] [place] [address] (ABNORMAL) Hgb A1c (09/21/2018 11:43 AM PORTABLE TRACKMAN) athologist Signature HGB A1C 5.8 (H) 4.0 - 5.6 % PN SOFT Specimen Anatomical Collection Method Collection Time Receive d Time (Source) Location / / Volume Laterality 09/21/2018 11:43 09/21/2018 3:51 AM PORTABLE TRACKMAN PM PORTABLE TRACKMAN Narrative PN SOFT - 09/21/2018 8:58 PM PORTABLE TRACKMAN Performed at [address] [place] [address] CLIA number [id number] Felipa Shrestha MD LAB_1 Performing Organization Address City/State/ZIP Code Phon e Number PN SOFT [address] [place] [address] [phone] documented in this encounter Visit Diagnoses Diagnosis Well woman exam (no gynecological exam) - Primary Routine general medical examination at a health care facility Chronic ulcerative colitis with complica tion, unspecified location (HRC) Current moderate episode of major depres sive disorder without prior episode (HRC) Essential hypertension (HRC) Unspecified essential hypertension SALLY (generalized anxiety disorder) (HRC) Generalized anxiety disorder Hemiplegic migraine without status migra inosus, not intractable Hemiplegic migraine, without mention of intractable migraine without mention of status migrainosus Pre-diabetes Other abnormal glucose Nonintractable epilepsy without status e pilepticus, unspecified epilepsy type (HRC) Establishing care with new doctor[place] for Pre-diabetes Other abnormal glucose Well woman exam (no gynecological exam) Routine general medical examination at a health care facility Essential hypertension (HRC) Unspecified essential hypertension documented in this encounter Care Teams Stock Analyst Relationship Specialty Start Date End Date Felipa Shrestha MD PCP - General Family Practice 08/26/18 [address] [place] [address] documented as of this encounter
--- OUTSIDE RECORDS SUMMARY | 2022-06-24 15:13 | XMS_ITS | Encounter Summary ---
:1970 Author [facility] Address [address] [address] Care Team Providers Name Role Phone Felipa Shrestha MD Primary Care Provider Reason for Referral Medication Prior Authorization (Routine) - Authorized Specialty Diagnoses / Procedures Referred By Contact Refer red To Contact Diagnoses Hemiplegic migraine without status migrainosus, not intractable Felipa Shrestha MD [address] [place] [address] Referral ID Status Reason Start Date Expiration Date Visits V isits Requested Authorized [id number] Authorized 01/17/2020 08/22/2099 1 1 Reason for Visit Reason Onset Date Comments Diabetes Video Visit 01/22/2020 Encounter Details Date Type Department Care Team Description 01/22/2020 Telemedicine [facility] Felipa Shrestha, Hemipl egic migraine without status migrainosus, not intractable (Primary Dx); Medicine Essential hypertension; [address] [place] Pre-diabetes; [place] [address] [place] Chronic ulcerative colitis w ith complication, unspecified location (HRC); [phone] [id number] Encounter for screening mammogram for ma lignant neoplasm of breast Social History Tobacco Use Types Packs/Day Years [...] - Inhaled Oxygen Concentration - - Weight 122.9 kg (271 lb) 01/22/2020 10:26 AM CDT pt rep orted Height - - Body Mass Index 42.44 06/16/2019 8:03 AM CDT documented in this encounter Progress Notes Felipa Shrestha MD - 01/22/2020 1:00 PM CDT Subjective: Today's visit with Sandra was conducted as a scheduled video visit. Has been ill the past month with probable covid. Neg test. Last week, dizzy, fatigued. Was having GIissues. History of pre diabetes. Blood sugars have been elevated, 270 at mealtime. Tried to bring itdown and was unable to. When she eats it elevates and then she gets these sx as above. Is taking metformin 1,000mg per day. 150 is the lowest fasting she has had. Has been using her husbands test supplies. Family hx of DM. She is the heaviest she has ever been. Stress eating. Has not been having increased thirst or increased urination. Has been drinking a lot of water to try to stay hydrated. Having significant HAs, different than her usual migraines. HTN BP is usually controlled on HCTZ usually 140/100. Migraines: Migraines are under reasonable control with amitriptyline, Frova Triptan, Toradol as needed, Decadron as needed Phenergan as needed Colitis: She was due for colonoscopy however given family illness and the pandemic, she has not yet completed this. She plans to schedule soon. Objective: Wt 271 lb (122.9 kg) Comment: pt reported BMI 42.44 kg/m?? Assessment/Plan: Hemiplegic migraine without status migrainosus, not intractable Controlled. - amitriptyline (ELAVIL) 50 MG tablet; Take 1 Tablet by mouth daily at bedtime. - frovatriptan (FROVA) 2.5 MG tablet; Take 1 Tablet by mouth once as needed for up to 1 dose. - promethazine (PHENERGAN) 25 MG tablet; Take 1 Tablet by mouth every 6 hours as needed for Nausea. - verapamil (VERELAN) 240 MG 24 hour release capsule; Take 1 Capsule by mouth every evening. - ketorolac (TORADOL) 10 MG tablet; Take 1 Tablet by mouth every 6 hours as needed (for migraines). - dexamethasone (DECADRON) 1 MG tablet; 4 mg for 3 days, 2mg for 1 day, then 1mg x 1 day. Essential hypertension (HRC) Uncontrolled, will change her hydrochlorothiazide to Prinzide, nurse blood pressure check in 2 weeksand repeat lab in 2 weeks. - Lipid Panel - LDLD If Trig High; Future - Basic Metabolic Panel; Future - lisinopril-hydroCHLOROthiazide (PRINZIDE) 20-25 MG tablet; Take 1 Tablet by mouth daily. Pre-diabetes Suspect she now has diabetes. Will increase her metformin to full strength. If A1c is above 6.5, will have her meet with diabetes education. - metFORMIN XR (GLUCOPHAGE XR) 500 MG 24 hour release tablet; Take 4 Tablets by mouth daily with breakfast. - Hemoglobin A1C Glycosylated; Future Chronic ulcerative colitis with complication, unspecified location ([facility]) Encounter for screening mammogram for malignant neoplasm of breast - MM Mammogram Screening Bilat W CAD; Future Clinician located at clinic. Patient located at home Billing based on: Complexity Felipa Shrestha MD documented in this encounter Nursing Notes Shante Fernandes MA - 01/22/2020 1:00 PM CDT The prior authorization for KETOROLAC 10mg has been approved. Please contact the pharmacy and ask them to notify the patient when prescription is ready for fruit or nut picker. Authorization number: [id number] Authorized from January 17, 2020 to August 22, 2099 Document using the ePA QuickAction PA Approved. Click Sign and Complete. Shasta Martinez - 01/22/2020 1:00 PM CDT The prior authorization for ketorolac (TORADOL) 10 MG tablet has been approved and has been sent to the pharmacy. Pharmacy has has been notified. Shasta Martinez documented in this encounter Plan of Treatment Not on filedocumented as of this encounter Results (ABNORMAL) Basic Metabolic Panel (02/27/2020 1:57 PM CDT) Analysis Performed At [facility] Time [facility] Sodium 141 136 - 145 02/27/2020 [facility] mmol/L 2:31 PM CDT LABORATORY Potassium 4.2 3.5 - 5.1 02/27/2020 [facility] mmol/L 2:31 PM CDT LABORATORY Chloride 104 98 - 109 02/27/2020 [facility] mmol/L 2:31 PM CDT LABORATORY CO2 27 20 - 29 02/27/2020 [facility] mmol/L 2:31 PM CDT LABORATORY Anion Gap 10 7 - 16 02/27/2020 [facility] mmol/L 2:31 PM CDT LABORATORY Calcium 9.8 8.4 - 10.4 02/27/2020 [facility] mg/dL 2:31 PM CDT LABORATORY BUN 16 7 - 26 02/27/2020 [facility] mg/dL 2:31 PM CDT LABORATORY Creatinine 1.00 0.55 - 02/27/2020 [facility] 1.02 mg/dL 2:31 PM CDT LABORATORY GFR, Estimated >60 >60 02/27/2020 [facility] mL/min/1.7 2:31 PM CDT LABORATORY 3m2 Glucose 126 (H) 70 - 100 02/27/2020 [facility] mg/dL 2:31 PM CDT LABORATORY Comment: The given reference range is fo r the fasting state. Non-fasting reference range for glucose is 70 - 180 mg/dL. Hours Fasting 1 02/27/2020 2:31 PM CDT [facility] Specimen Anatomical Collection Method / Collection Time Recei jagdeep Time (Source) Location / Volume Laterality Blood Venipuncture / 02/27/2020 1:57 02/27/2020 1:57 Unknown PM CDT PM CDT Felipa Shrestha MD LAB_1 Performing Organization Address City/State/ZIP Code Phon e Number [facility] [address] [place] [address] (ABNORMAL) Basic Metabolic Panel (01/23/2020 11:11 AM CDT) Analysis Performed At [facility]o logist Time Signature Sodium 138 136 - 145 01/23/2020 [facility] mmol/L 12:10 PM CDT LABORATORY Potassium 3.9 3.5 - 5.1 01/23/2020 [facility] mmol/L 12:10 PM CDT LABORATORY Chloride 101 98 - 109 01/23/2020 [facility] mmol/L 12:10 PM CDT LABORATORY CO2 23 20 - 29 01/23/2020 [facility] mmol/L 12:10 PM CDT LABORATORY Anion Gap 14 7 - 16 01/23/2020 [facility] mmol/L 12:10 PM CDT LABORATORY Calcium 9.7 8.4 - 10.4 01/23/2020 [facility] mg/dL 12:10 PM CDT LABORATORY BUN 20 7 - 26 01/23/2020 [facility] mg/dL 12:10 PM CDT LABORATORY Creatinine 1.00 0.55 - 01/23/2020 [facility] 1.02 mg/dL 12:10 PM CDT LABORATORY GFR, Estimated >60 >60 01/23/2020 [facility] mL/min/1.7 12:10 PM CDT LABORATORY 3m2 GFR, Est If >60 >60 01/23/2020 [facility] mL/min/1.7 12:10 PM CDT LABORATORY [place] 3m2 Glucose 164 (H) 70 - 100 01/23/2020 [facility] mg/dL 12:10 PM CDT LABORATORY Comment: The given reference range is fo r the fasting state. Non-fasting reference range for glucose is 70 - 180 mg/dL. Hours Fasting 12 01/23/2020 12:10 PM CDT [facility] Specimen Anatomical Collection Method / Collection Time Recei jagdeep Time (Source) Location / Volume Laterality Blood Venipuncture / 01/23/2020 11:11 0 Unknown AM CDT 11:11 AM CDT Felipa Shrestha MD LAB_1 Performing Organization Address City/State/ZIP Code Phon e Number [facility] [address] [place] [address] (ABNORMAL) Lipid Panel - LDLD If Trig High (01/23/2020 11:11 AM CDT) [facility] gist Method Time Signature Cholesterol 205 (H) 0 - 199 01/23/2020 [facility] mg/dL 12:10 PM CDT LABORATORY Triglyceride 197 (H) <=149 01/23/2020 [facility] mg/dL 12:10 PM CDT LABORATORY HDL Cholesterol 37 (L) >=40 01/23/2020 [facility] mg/dL 12:10 PM CDT LABORATORY LDL, Calculated 129 <130 01/23/2020 [facility] mg/dL 12:10 PM CDT LABORATORY Non HDL Chol, 168 mg/dL 01/23/2020 [facility] Calculated 12:10 PM CDT LABORATORY Cholesterol/HDL 5.5 01/23/2020 [facility] Ratio 12:10 PM CDT LABORATORY Hours Fasting 12 01/23/2020 [facility] 12:10 PM CDT LAB[facility]ATORY Specimen Anatomical Collection Method / Collection Time Recei jagdeep Time (Source) Location / Volume Laterality Blood Venipuncture / 01/23/2020 11:11 0 Unknown AM CDT 11:11 AM CDT Felipa Shrestha MD LAB_1 Performing Organization Address [facility] Phon e Number [facility] [address] [place], [place] [phone] (ABNORMAL) Hemoglobin A1C Glycosylated (01/23/2020 11:11 AM CDT) [facility] gist Method Time Signature Hemoglobin A1C 6.1 (H) <=5.6 % 01/23/2020 [facility] 7:12 PM CDT CENTRAL LAB Specimen Anatomical Collection Method / Collection Time Recei jagdeep Time (Source) Location / Volume Laterality Blood Venipuncture / 01/23/2020 11:11 0 Unknown AM CDT 11:11 AM CDT Narrative [facility] C[facility]AL [facility] - 01/23/2020 7:12 PM CDT For patients not previously diagnosed with diabetes: 5.7-6.4%: Increased risk for diabetes 6.5% and greater: Diagnostic for diabete s For patients diagnosed with diabetes: <8.0%: Goal of therapy for ages 18-75 Clinicians may recommend a higher or low er goal for specific individuals. Felipa Shrestha MD LAB_1 Performing Organization Address City/[facility]/ZIP Code Phon e Number [facility] C[facility]AL LAB [address] [address] documented in this encounter Visit Diagnoses Diagnosis Hemiplegic migraine without status migra inosus, not intractable - Primary Hemiplegic migraine, without mention of intractable migraine without mention of status migrainosus Essential hypertension (HRC) Unspecified essential hypertension Pre-diabetes Other abnormal glucose Chronic ulcerative colitis with complica tion, unspecified location ([facility]) Encounter for screening mammogram for ma lignant neoplasm of breast Other screening mammogram documented in this encounter Care Teams Sole Conforming Machine Operator Relationship Specialty Start Date End Date Felipa Shrestha MD PCP - General Family Practice 08/26/18 [address] [place] [address] documented as of this encounter
--- OUTSIDE RECORDS SUMMARY | 2022-06-24 15:13 | XMS_ITS | Encounter Summary ---
:1970 Author Organization [facility] Address [address], [place] [address] Care Team Providers Name Role Phone Victor M Shrestha MD Primary Care Provider Reason for Visit Reason Comments Refill amitriptyline (ELAVIL) 50 MG tablet [Pharmacy Med Name: Amitriptyline HCl Oral Tablet 50 MG] Encounter Details Date Type Department Care Team Description 11/05/2019 Refill [facility] Victor M Shrestha, Refill (amitriptyline Medicine (ELAVIL) 50 MG tablet [id number] [place] [Pharmacy Med Name: [place] [address] [place], [place] Amitriptyline HCl Oral [phone] Tablet 50 MG]) Social History Tobacco Use Types Packs/Day Years Used Date Smoking Tobacco: Never Smokeless Tobacco: Never Alcohol Use Standard Drinks/Week Comments Yes 0 (1 standard drink = 0.6 oz pure alcoho l) 2 servings a month Sex Assigned at Date Recorded Not on file documented as of this encounter Nursing Notes Becky Marin - 11/11/2019 5:46 PM CDT Closing encounter per Emergency Medication Refill standing order. Jonathan Ashley RN - 11/08/2019 2:05 PM CDT OFFICE APPOINTMENT NEEDED Please notify patient to schedule an appointment within 30 days. Pt. Canceled 11/06/19 appt. Requested Prescriptions Signed Prescriptions Disp Refills ??? amitriptyline (ELAVIL) 50 MG tablet 90 Tablet 0 Sig: TAKE 1 TABLET BY MOUTH DAILY AT BEDTIME. Authorizing Provider: VICTOR M SHRESTHA Ordering User: JONATHAN ASHLEY Interface, Out Wenwo Prov Query - 11/05/2019 11:09 AM CDT amitriptyline (ELAVIL) 50 MG tablet [Pharmacy Med Name: Amitriptyline HCl Oral Tablet 50 MG] Medication started: 09/21/2018 Last ordered by VICTOR M SHRESTHA: 09/21/2018 (410 days ago) QTY: 90, Refills: 3, Sig: take 1 tablet by mouth daily at bedtime. (unchanged) -> Patient has a visit scheduled within the next 3 days. -> Refill x 3 months (courtesy refill. overdue for an office visit) Last qualifying visit: 09/21/2018 (with VICTOR M SHRESTHA) Next scheduled visit: 11/06/2019 (in Family Practice) Powered by [employer], Reference: [id number], 11/05/2019 11:09:03 AM CDT, Pool: ESTEPHANIA RICH REFILL ([id number]) documented in this encounter Plan of Treatment Not on filedocumented as of this encounter Visit Diagnoses Diagnosis Hemiplegic migraine without status migra inosus, not intractable Hemiplegic migraine, without mention of intractable migraine without mention of status migrainosus documented in this encounter Care Teams Teradata Solution Architect Relationship Specialty Start Date End Date Victor M Shrestha MD PCP - General Family Practice 08/26/18 [address] [place] [address] documented as of this encounter
--- OUTSIDE RECORDS SUMMARY | 2022-06-24 15:13 | XMS_ITS | Encounter Summary ---
:1970 Author Organization [facility] Address [address], [place] [address] Care Team Providers Name Role Phone Victor M Shrestha MD Primary Care Provider Encounter Details Date Type Department Care Team Description 11/03/[address] [facility] Victor M French, [address] [facility] [address] [place] [address] [place] [address] [phone] (Wo rk) Social History Tobacco Use Types Packs/Day Years Used Date Smoking Tobacco: Never Smokeless Tobacco: Never Alcohol Use Standard Drinks/Week Comments Yes 0 (1 standard drink = 0.6 oz pure alcoho l) 2 servings a month Sex Assigned at Date Recorded Not on file documented as of this encounter Nursing Notes Becky Marin - 11/03/2019 3:58 PM CDT Labs to be addressed at future visit. Interface, Out Surescripts Prov Query - 11/03/2019 12:54 PM CDT SCHEDULE THE FOLLOWING: - HBA1C (PN ONLY) BY: Now (Due as of 03/20/2019 for metFORMIN XR (GLUCOPHAGE XR) 500 MG 24 hour release tablet) - BASIC METABOLIC PANEL BY: Now (Due as of 09/16/2019 for multiple medications including hydroCHLOROthiazide (ORETIC) 25 MG tablet) - LAST QUALIFYING VISIT WITH VICTOR M SHRESTHA - NEXT SCHEDULED VISIT IN FAMILY PRACTICE: 11/06/2019 - NEXT LAB APPOINTMENT: None Powered by [employer], Reference: [id number], 11/03/2019 12:54:00 PM CDT, Pool: ESTEPHANIA FP REFILL ([id number]) documented in this encounter Plan of Treatment Not on filedocumented as of this encounter Visit Diagnoses Diagnosis Encounter for long-term (current) use of medications - Primary Encounter for long-term (current) use of other medications documented in this encounter Care Teams Manager Metal Relationship Specialty Start Date End Date Victor M Shrestha MD PCP - General Family Practice 08/26/[address] [place] [address] documented as of this encounter
--- OUTSIDE RECORDS SUMMARY | 2022-06-24 15:13 | XMS_ITS | Encounter Summary ---
:1970 Author Organization [facility] Address [address], [place] [address] Care Team Providers Name Role Phone Victor M Shrestha MD Primary Care Provider Reason for Referral (Routine) - Closed Specialty Diagnoses / Procedures Referred By Contact Refer red To Contact Diagnoses Chronic ulcerative colitis without complication, unspecified location (HRC) Dayron Zuluaga MD Procedures Endoscopy, colon, diagnostic [address] [place], [place] [address] Referral ID Status Reason Start Date Expiration Date Visits Requ ested Visits Authorized [id number] Closed 06/16/2019 09/14/2020 1 1 Reason for Visit Reason Comments CONSULT Consult/Transfer Care (Routine) - Closed Specialty Diagnoses / Procedures Referred By Contact Refer red To Contact Diagnoses Chronic ulcerative colitis with complication, unspecified location (HRC) Victor M Shrestha MD [address] [place] [address] [place] [address] Referral ID Status Reason Start Date Expiration Date Visits Requ ested Visits Authorized [id number] Closed 09/21/2018 12/21/2019 1 1 Encounter Details Date Type Department Care Team Description 06/16/2019 Initial Consult Dayron Nagel Chronic ulcerative Gastroenterology colitis without [address] [facility], [place] [address] Blvd unspecified location [phone] [place], [place] (HRC) ([facility] D[facility]) [address] Social History Tobacco Use Types Packs/Day Years Used Date Smoking Tobacco: Never Smokeless Tobacco: Never Alcohol Use Standard Drinks/Week Comments Yes 0 (1 standard drink = 0.6 oz pure alcoho l) 2 servings a month Sex Assigned at Date Recorded Not on file documented as of this encounter Last Filed Vital Signs Vital Sign Reading Time Taken Comments Blood Pressure 131/105 06/16/2019 8:03 AM CDT Pulse 98 06/16/2019 8:03 AM CDT Temperature - - Respiratory Rate 18 06/16/2019 8:03 AM CDT Oxygen Saturation - - Inhaled Oxygen Concentration - - Weight 122.9 kg (271 lb) 06/16/2019 8:03 AM CDT Height 170.2 cm (5' 7) 06/16/2019 8:03 AM CDT Body Mass Index 42.44 06/16/2019 8:03 AM CDT documented in this encounter Patient Instructions Patient InstructionsLoganDayron MD - 06/16/2019 8:00 AM CDT Sandra, Today we reviewed your history of ulcerative colitis. Because of lack of coverage for Lialda we will plan to use the generic sulfasalazine and a prescription has been sent in for this. In addition we will do a baseline testing to rule out anemia, renal problems or liver disease related to your ulcerative colitis. As it has been some years we will plan to update your colonoscopy for staging of your ulcerative colitis. We will plan to have you follow up with me in about 4 months but have a visit with 1 of our nurse practitioners in about a month. If you have questions or concerns please feel free to contact our office at [phone]. Dayron Zuluaga MD documented in this encounter Progress Notes Dayron Zuluaga MD - 06/16/2019 9:14 AM CDT NAME: SANDRA BROWN MR#: [id number] CSN: [id number] AUTHENTICATING CLINICIAN: Dayron Zuluaga MD CONFIRM #: [id number] LOC: 533 CLINIC PROGRESS NOTE DATE OF VISIT: 06/16/2019 : 1970 CHIEF COMPLAINT: Ulcerative colitis, uncertain extent of disease. Present for some 15 years. HISTORY OF PRESENT ILLNESS: I am asked to see the patient in consultation at the request of Victor M Shrestha for advice regarding the above-captioned problem. The patient is a 48-year-old woman who was diagnosed with ulcerative colitis some 15 years ago. Her last colonoscopy was 6-7 years ago. These records are not available. She is uncertain of the extent of her disease at that time. She had been on Lialda 4.8 g daily; but sinceher 's insurance changed, she has no coverage for this but is willing to try sulfasalazine. She was only hospitalized on 1 occasion over the years for her ulcerative colitis. She does note flares are approximately twice per year, and she self- medicates with a prescription she has for prednisone 10 mg per day. Usually a week or two of daily dosing resolves her symptoms. The patient denies extracolonic involvement. PAST MEDICAL HISTORY: Significant for atypical migraines that are basis for her medical disability. There is also history of obstructive sleep apnea, morbid obesity with BMI of 45. PAST SURGICAL HISTORY: Includes hysterectomy, cholecystectomy, and appendectomy. MEDICATIONS: Currently include amitriptyline, diazepam, Frova, hydrochlorothiazide, metformin, prednisone p.r.n.,sumatriptan, and Verelan. ALLERGIES: Adverse drug reaction history list is extensive and includes fentanyl, morphine, Valium, Vistaril, Zofran as well as beef, carrots, turkey, garlic. The patient reports that beef creates mouth sores and she feels was the cause of her ulcerative colitis on its presentation. FAMILY HISTORY: Significant for a father with diabetes. The father also had colon cancer, but this did not develop until age 80. REVIEW OF SYSTEMS: Negative for pulmonary, , and neurologic items. Remainder of the complete review of systems is negative aside from items related to her migraine headaches. SOCIAL HISTORY: The patient is . She is on medical disability. She quit tobacco use at age 29. Alcohol use isperhaps 1 drink every 2 weeks. PHYSICAL EXAM: VITAL SIGNS: Reveals a height 5 feet 7 inches, weight 271 pounds blood pressure 131/100, pulse 98. Respiratory rate is 18. CONSTITUTIONAL: Signs reveal evidence of obesity, good attention to grooming. HEENT: Eyes are notable for normal inspection of the conjunctivae and lids. Pupil and iris react to light and accommodation. ENT reveals normal inspection of lips, teeth, gums, ears, and nose. NECK: Normal in apparent symmetry, midline tracheal position, lack of crepitus. The thyroid is free of enlargement, tenderness, or mass. CHEST: Effort reveals good diaphragm movement without retractions or accessory muscle use. Auscultation reveals good breath sounds without adventitious sounds or rubs. CARDIOVASCULAR: Reveals S1, S2 without S3, S4, or murmur. Carotid artery pulse amplitude is normal. Carotids free of bruit. ABDOMEN: Soft, nontender. There is no organomegaly of the liver or spleen. EXTREMITIES: Station and gait are normal. Inspection of digits and nails normal. NEUROLOGIC: Sensory exam is intact to touch. PSYCHIATRIC: Reveals patient oriented to time, place, person. Mood and affect are appropriate. SKIN: Free of rashes, lesions, or ulcers. There is no tenderness to palpation. ASSESSMENT: One of a patient with records from [place] dating back to 2011, where she was residing at the time.This is almost exclusively focused on her atypical migraine disease, and there are no details about the ulcerative colitis. RECOMMENDATION: I would recommend restaging the ulcerative colitis, as it has been to her recollection more than 6-7years since her last colonoscopy. We will also check CBC, creatinine, hepatic function panel. We will undertake a trial of sulfasalazine for preventive measures, and I encouraged the patient to contactus in the event of symptoms of a flare, so that we can rule out infection prior to beginning steroids. Thank you for the opportunity to assist you in the care of this patient. CC: VICTOR M SHRESTHA MD [address] [place] [address] [place] [address] GML:MEDQ C: CONFIRM #: [id number] documented in this encounter Plan of Treatment Scheduled Orders Name Type Priority Associated Diagnoses Order S chedule Endoscopy, colon, GI Routine Chronic ulcerative 1 Oc currences starting diagnostic colitis without 06/16/2019 u ntil complication, 06/16/2021 unspecified location ([facility]C) documented as of this encounter Visit Diagnoses Diagnosis Chronic ulcerative colitis without compl ication, unspecified location ([facility]) - Primary documented in this encounter Care Teams Network Administrator Relationship Specialty Start Date End Date Victor M Shrestha MD PCP - General Family Practice 08/26/[address] [place] [address] documented as of this encounter
--- OUTSIDE RECORDS SUMMARY | 2022-06-24 15:13 | XMS_ITS | Encounter Summary ---
:1970 Author Organization [employer] Address [address], [place] [address] Care Team Providers Name Role Phone Felipa Shrestha MD Primary Care Provider Reason for Visit Reason Comments QUESTIONS, GENERAL Encounter Details Date Type Department Care Team Description 11/17/[address] [facility] Felipa Shrestha MD QUESTIONS, GENERAL Medicine [address] [facility] [address] [place] [id number] [place] [address] [phone] Social History Tobacco Use Types Packs/Day Years Used Date Smoking Tobacco: Never Smokeless Tobacco: Never Alcohol Use Standard Drinks/Week Comments Yes 0 (1 standard drink = 0.6 oz pure alcoho l) 2 servings a month Sex Assigned at Date Recorded Not on file documented as of this encounter Nursing Notes Snehal Morrison LPN - 11/17/2018 3:00 PM CDT Pt notified of Dr Shrestha note below and understands Felipa Shrestha MD - 11/17/2018 2:30 PM CDT We did not do a medicare well as she was not scheduled for one. This involves different forms. Theseare usually only helpful in geriatric patients as they include a dementia screening/falls assessment/etc. Snehal Morrison LPN - 11/17/2018 1:26 PM CDT Pt notified of Dr Shrestha note and states if Dr Shrestha codes the visit as a Medicare Well her chargeswill be less Felipa Shrestha MD - 11/17/2018 11:44 AM CDT No, I did bill it correctly. Please let her know. Snehal Morrison LPN - 11/17/2018 11:36 AM CDT I spoke with our billing department and they say billing it as a medicare well will not change the charges to the pt but if it was a Medicare Well we should change the code Felipa Shrestha MD - 11/17/2018 11:15 AM CDT It was billed as a standard preventative visit (well exam) as well as a level 2 as we covered a lot of things that are not part of a well exam. Does the well exam need to be billed as the medicare annual wellness? If so, I can change that part of it. Iva Escobar - 11/17/2018 11:08 AM CDT Clinician Action: Review billing concern Clinician Next Step: Close encounter Specific Request(s): Review billing concern from the patient Didier Mcgill - 11/17/2018 10:43 AM CDT Miscellaneous Questions & FYI's - Question/Concern (DO NOT use for billing and coding concerns see BEST care reporting system) What is your question or concern? Patient been calling the billing dept and they told the patient to call the provider for wrong codedon the appt date on 09/21/18 suppose to be annual wellness. Please advise Is it okay to leave a detailed message on your voicemail? Yes (Advise caller that the PN call back number will end with [phone] or unknown) Please route to: Appropriate pool per call routing grid documented in this encounter Plan of Treatment Not on filedocumented as of this encounter Visit Diagnoses Not on filedocumented in this encounter Care Teams Computer Support Specialist Instructor Relationship Specialty Start Date End Date Felipa Shrestha MD PCP - General Family Practice 08/26/18 [address] [place] [address] documented as of this encounter
--- OUTSIDE RECORDS SUMMARY | 2022-06-24 15:13 | XMS_ITS | Encounter Summary ---
:1970 Author Organization [employer] Address [address], [place] [address] Care Team Providers Name Role Phone Felipa Shrestha MD Primary Care Provider Reason for Visit Reason Comments Labs Needed Encounter Details Date Type Department Care Team Description 11/01/2019 Telephone [facility] Felipa French MD Labs Needed [address] [place] [address] [place] [id number] (Wo rk) Social History Tobacco Use Types Packs/Day Years Used Date Smoking Tobacco: Never Smokeless Tobacco: Never Alcohol Use Standard Drinks/Week Comments Yes 0 (1 standard drink = 0.6 oz pure alcoho l) 2 servings a month Sex Assigned at Date Recorded Not on file documented as of this encounter Nursing Notes Felipa Shrestha MD - 11/01/2019 1:30 PM CDT Signed. Will have her wait for our visit to do labs as there may be others that need follow up. documented in this encounter Plan of Treatment Not on filedocumented as of this encounter Visit Diagnoses Diagnosis Pre-diabetes - Primary Other abnormal glucose Essential hypertension (HRC) Unspecified essential hypertension documented in this encounter Care Teams Debridging Machine Operator Relationship Specialty Start Date End Date Felipa Shrestha MD PCP - General Family Practice 08/26/18 [address] [place] [address] documented as of this encounter
--- OUTSIDE RECORDS SUMMARY | 2022-06-24 15:13 | XMS_ITS | Encounter Summary ---
:1970 Author Organization [employer] Address [address], [place] [address] Care Team Providers Name Role Phone Victor M Shrestha MD Primary Care Provider Reason for Visit Reason Comments Refill metFORMIN XR (GLUCOPHAGE XR) 500 MG 24 hour release tablet [Pharmacy Med Name: metFORMIN HCl ER Oral Tablet Extended Release 24 Hour 500 MG] Encounter Details Date Type Department Care Team Description 11/03/2019 Refill [facility] Victor M Shrestha MD Refill (metFORMIN XR Medicine [address] (GLUCOPHAGE XR) 500 MG [address] [place], [place] 24 hour [place] [id number] [Pharmacy Med Name: [phone] (Wo rk) metFORMIN HCl ER Oral Tablet [...] documented as of this encounter Nursing Notes Interface, Out Surescripts Prov Query - 11/03/2019 12:54 PM CDT metFORMIN XR (GLUCOPHAGE XR) 500 MG 24 hour release tablet [Pharmacy Med Name: metFORMIN HCl ER OralTablet Extended Release 24 Hour 500 MG] Medication started: 09/21/2018 Last ordered by VICTOR M SHRESTHA (408 days ago) QTY: 360, Refills: 3, Sig: take 4 tabletsby mouth daily with breakfast. (unchanged) -> GFR (CrCl) estimated is overdue (performed 14 months ago, required every 12 months) -> Rapid A1C is overdue (performed 14 months ago, required every 6 months) Last qualifying visit: 09/21/2018 (with VICTOR M SHRESTHA) Next scheduled visit: 11/06/2019 (in Family Practice) GFR (CrCl) estimated: >60 ml/min on 09/21/2018 Rapid A1C : 5.8 % on 09/21/2018 PATIENT IS DUE FOR: - HBA1C (PN ONLY) (Sent to [facility]) - BASIC METABOLIC PANEL (Sent to [facility]) Powered by [employer], Reference: [id number], 11/03/2019 12:54:00 PM CDT, Pool: [facility] ([id number]) documented in this encounter Plan of Treatment Not on filedocumented as of this encounter Visit Diagnoses Diagnosis Pre-diabetes Other abnormal glucose documented in this encounter Care Teams Management Internship Relationship Specialty Start Date End Date Victor M Shrestha MD PCP - General [facility] 08/26/[address] [place] [address] documented as of this encounter
--- OUTSIDE RECORDS SUMMARY | 2022-06-24 15:13 | XMS_ITS | Clinical Summary ---
:1970 Author Organization [employer] [place] [address] Care Team Providers Name Role Phone Violet Gilliam MD Primary Care Provider [phone] Allergies Active Allergy Reactions Severity Noted Date Comments Black Pepper Other - Describe In Medium 06/02/2016 Triggers mouth sores Comment Field and colon irri tation Chicken Derived Other - Describe In High 06/02/2016 Turke y and red meat Comment Field trigger seizur es Twiggs And Derivatives Other - Describe In High 06/02/2016 Triggers seizures. Comment Field Diazepam *Unknown - Follow up 10/12/2015 needed, *Unknown Fentanyl *Unknown - Follow up 10/12/2015 needed, *Unknown Garlic Other - Describe In Medium 06/02/2016 Ulcers i n mouth and Comment Field irritation of colon Hydroxyzine Anaphylaxis High 10/12/2015 Iodine Anaphylaxis High 03/15/2017 Lorazepam *Unknown 03/15/2017 Morphine *Unknown - Follow up 10/12/2015 needed, *Unknown Mushroom *Unknown - Follow up 10/12/2015 needed, *Unknown Ondansetron *Unknown - Follow up 10/12/2015 needed, *Unknown Peanut *Unknown - Follow up 10/12/2015 needed Shellfish Containing *Unknown - Follow up 07/12/2013 Products needed Shellfish Derived Anaphylaxis High 03/15/2017 Medications Medication Sig Dispensed Refills Start End Date Status Date hydroCHLOROthiazide Take 1 Tablet by 0 Active (HCTZ) 25 mg tablet mouth once daily. 1 metFORMIN (GLUCOPHAGE) Take 1,000 mg by 0 Active 1,000 mg tablet mouth. verapamil SR (CALAN SR) Take 240 mg by 0 Active 240 mg extended release mouth. 2 tablet amitriptyline (ELAVIL) Take 25 mg by 0 Active 25 mg tablet mouth at bedtime. 2 SUMAtriptan (IMITREX) 6 INJECT 0.5 ML (6 0 Active mg/0.5 mL crtg MG) SUBCUTANEOUSLY 2 ONCE NEEDED. MAY REPEAT IN 2 HOURS. MAX 2 DOSES A DAY. promethazine Take 25 mg by 0 Act jasmin (PHENERGAN) 25 mg mouth. tablet frovatriptan (FROVA) Take 2.5 mg by 0 Active 2.5 mg tab mouth. 2 predniSONE (DELTASONE) take 4 tablets by 98 Tablet 0 Active 10 mg oral route once 2 tabletIndications: daily for 2 weeks, Ulcerative colitis 3 tablets per day without complications, for 1 week, 2 unspecified location tablets per day (HC) for 1 week, 1 tablet per day for 1 week balsalazide (COLAZAL) Take 3 Capsules 280 Capsule 1 Active 750 mg (2,250 mg) by 2 capsuleIndications: mouth 3 times Ulcerative colitis daily. without complications, unspecified location (HC) amitriptyline (ELAVIL) Take 1 Tablet by 0 Active 25 mg tablet mouth at bedtime. 1 metFORMIN (GLUCOPHAGE Take 1,000 mg by 0 Active XR) 500 mg mouth once daily. 2 Extended-Release tablet SUMAtriptan (IMITREX) 6 Inject 6 mg 0 Active mg/0.5 mL crtg subcutaneous. 2 Active Problems Problem Noted Date Prolonged QT interval 01/25/2020 Current moderate episode of major depressive disorder without prior 09/21/2018 episode SALLY (generalized anxiety disorder) 09/21/2018 Chronic ulcerative colitis 09/21/2018 Secondary seizure disorder 09/21/2018 Overview: Formatting of this note might be differe nt from the original. From hemiplegic migraines Anxiety 03/15/2017 Controlled type 2 diabetes mellitus without complicati on, without 03/15/2017 long-term current use of insulin Essential hypertension 03/15/2017 Hemiplegic migraine 03/15/2017 Low vitamin D level 03/15/2017 Encounters Date Type Specialty Care Team Description 04/20/2022 Ancillary Procedure 04/20/2022 Office Visit Garcia, Shanta L, PA Hand Inj ury (smashed in garage door las t night ) 04/20/2022 Travel from Last 3 Months Social History Tobacco Use Types Packs/Day Years Used Date Never Smoker Smokeless Tobacco: Never Used Tobacco Cessation: Counseling Given: Yes Alcohol Use Standard Drinks/Week Comments Yes 2 (1 standard drink = 0.6 oz pure alcoho l) Sex Assigned at Date Recorded Not on file Obstetrics History Last Filed Vital Signs Vital Sign Reading Time Taken Comments Blood Pressure 137/85 04/20/2022 10:08 AM CDT Pulse 83 04/20/2022 10:08 AM CDT Temperature 36.1 ??C (97 ??F) 04/20/2022 10:08 AM CDT Respiratory Rate - - Oxygen Saturation 99% 04/20/2022 10:08 AM CDT Inhaled Oxygen Concentration - - Weight 112.5 kg (248 lb) 04/20/2022 10:08 AM CDT Height 170.2 cm (5' 7) 04/20/2022 10:08 AM CDT Body Mass Index 38.84 04/20/2022 10:08 AM CDT Plan of Treatment Health Maintenance Due Date Last Done Comments Pneumococcal series for age 19-64 (1 - 11/14/1975 PCV) Tdap 1980 Depression screening for age 12+ 1981 Hepatitis C screening for age 18-79 11/14/1987 Hepatitis B series for Diabetes (1 of 3 - 1988 Risk 3-dose series) Tetanus booster 1989 Pap test for age 21-65 1990 Colonoscopy through age 75 2014 Lipids for age 45-75 2014 Mammogram for age 45-75 2014 Zoster (shingles) series for age 50+ (1 of 11/14/2019 2) COVID-19 vaccine series (3 - Booster for 07/08/2021 021, 04/18/2021 Pfizer series) Influenza for age 50-64 04/23/2022 BMI (ht and wt on same day) for age 18+ 04/20/2023 04/20/20 22 Procedures Procedure Name Priority Date/Time Associated Diagnosis Comme nts XR HAND 3 VIEWS STAT 04/20/2022 10:35 AM Crushing injury of Results for this RIGHT CDT right hand, initial procedur e are in encounter the results section. from Last 3 Months Results XR HAND 3 VIEWS RIGHT (04/20/2022 10:35 AM CDT) Anatomical Region Laterality Modality HANDS, HAND R Computed Radiography Specimen (Source) Anatomical Collection Method Collection Time Re ceived Time Location / / Volume Laterality 04/20/2022 10:35 AM CDT Impressions 04/20/2022 10:44 AM CDT The right hand is negative for fracture. Narrative 04/20/2022 10:44 AM CDT For Patients: As a result of the Cures Act, medical imaging exams and procedure reports are released immediately into your [facility] medical record. You may view this report before your referring provider. If you have questions, please contact your health care provider. EXAM: XR HAND 3 VIEWS RIGHT LOCATION: [facility] DATE/TIME: 04/20/2022 10:35 AM INDICATION: Crushing Injury Of Right Harden d, Initial Encounter COMPARISON: None. Procedure Note Madi Esquivel MD - 04/20/2022Form atting of this note might be different from the original. For Patients: As a result of the Cures Act, medical imaging exams and procedure reports are released immediately into your electronic medical record. You may view this report before your referring provider. If you have questions, please contact [facility] health care provider. EXAM: XR HAND 3 VIEWS RIGHT LOCATION: [facility] DATE/TIME: 04/20/2022 10:35 AM INDICATION: Crushing Injury Of Right Harden d, Initial Encounter COMPARISON: None. IMPRESSION: The right hand is negative for fracture. [facility] from Last 3 Months Insurance Payer Benefit Plan / Subscriber ID Effective Dates Phone Addre ss Type Group [employer] [id number] 2021-Present [address] [employer] [place], [place] [phone] Care Teams Atmospheric Physics Professor Relationship Specialty Start Date End Date Violet Gilliam MD PCP - General Family Practice 03/13/221999 [place] [address]
--- OUTSIDE RECORDS SUMMARY | 2022-06-24 15:13 | XMS_ITS | Encounter Summary ---
:1970 Author Organization [employer] Address [address] [address] Care Team Providers Name Role Phone Felipa Shrestha MD Primary Care Provider Encounter Details Date Type Department Care Team Description 06/26/2019 Notes/Orders [facility] [address] Saxena MD Endoscopy [address] [place] [address] [place] [id number] [phone] Social History Tobacco Use Types Packs/Day Years Used Date Smoking Tobacco: Never Smokeless Tobacco: Never Alcohol Use Standard Drinks/Week Comments Yes 0 (1 standard drink = 0.6 oz pure alcoho l) 2 servings a month Sex Assigned at Date Recorded Not on file documented as of this encounter Progress Notes Alexia Cardenas RN - 06/26/2019 3:02 PM CST Procedure: Colonoscopy w/propofol Procedure Date: July 04, 2019 Procedure Check-inTime: 7:30 am Blood Thinner: No Implants: Please verify Metal: Please verify Constipation: No Day of Procedure Lab Requirements: Potassium: No PT/INR: N/A EKG: N/A POCT Blood Glucose: No POCT test: Please verify LMP Pre-procedure phone call was not completed: Left Message to Call Back 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
--- OUTSIDE RECORDS SUMMARY | 2022-06-24 15:13 | XMS_ITS | Encounter Summary ---
:1970 Author Organization [employer] Address [address] [address] Care Team Providers Name Role Phone Felipa Shrestha MD Primary Care Provider Encounter Details Date Type Department Care Team Description 01/23/2020 Lab Visit [facility] Pre-diabetes; [address] [employer] Essential hypertension [place], [place] [id number] Social History Tobacco Use Types Packs/Day Years [...] Name Priority Date/Time Associated Diagnosis Comme nts LIPID PANEL AND Routine 01/23/2020 11:11 Essential Results for this DIRECT LDL(IF AM CDT hypertension procedure are in NEEDED) the results section. BASIC METABOLIC Routine 01/23/2020 11:11 Essential Results for this PANEL AM CDT hypertension procedure are i n the results section. HGB A1C Routine 01/23/2020 11:11 Pre-diabetes Results for this AM CDT procedure are i n the results section. documented in this encounter Results (ABNORMAL) Basic Metabolic Panel (01/23/2020 11:11 AM CDT) Analysis Performed At Patho logist Time Signature Sodium 138 136 - 145 01/23/2020 [facility] mmol/L 12:10 PM CDT LABORATORY Potassium 3.9 3.5 - 5.1 01/23/2020 [facility] mmol/L 12:10 PM CDT LABORATORY Chloride 101 98 - 109 01/23/2020 [facility] mmol/L 12:10 PM CDT LABORATORY CO2 23 20 - 29 01/23/2020 [facility] mmol/L 12:10 PM CDT LABORATORY Anion Gap 14 7 - 16 01/23/2020 [facility] mmol/L 12:10 PM CDT LABORATORY Calcium 9.7 8.4 - 10.4 01/23/2020 [facility] mg/dL 12:10 PM CDT LABORATORY BUN 20 7 - 26 01/23/2020 [facility] mg/dL 12:10 PM CDT LABORATORY Creatinine 1.00 0.55 - 01/23/2020 [facility] 1.02 mg/dL 12:10 PM CDT LABORATORY GFR, Estimated >60 >60 01/23/2020 [facility] mL/min/1.7 12:10 PM CDT LABORATORY 3m2 GFR, Est If >60 >60 01/23/2020 [facility] mL/min/1.7 12:10 PM CDT LABORATORY Indian 3m2 Glucose 164 (H) 70 - 100 01/23/2020 [facility] mg/dL 12:10 PM CDT LABORATORY Comment: The given reference range is fo r the fasting state. Non-fasting reference range for glucose is 70 - 180 mg/dL. Hours Fasting 12 01/23/2020 12:10 PM CDT [facility] Specimen Anatomical Collection Method / Collection Time Recei jagdeep Time (Source) Location / Volume Laterality Blood Venipuncture / 01/23/2020 11:11 0 Unknown AM CDT 11:11 AM CDT Felipa Shrestha MD LAB_1 Performing Organization Address City/State/ZIP Code Phon e Number [facility] [address] [place] [address] (ABNORMAL) Lipid Panel - LDLD If Trig High (01/23/2020 11:11 AM CDT) [facility] gist Method Time Signature Cholesterol 205 (H) 0 - 199 01/23/2020 [facility] mg/dL 12:10 PM CDT LABORATORY Triglyceride 197 (H) <=149 01/23/2020 [facility] mg/dL 12:10 PM CDT LABORATORY HDL Cholesterol 37 (L) >=40 01/23/2020 [facility] mg/dL 12:10 PM CDT LABORATORY LDL, Calculated 129 <130 01/23/2020 [facility] mg/dL 12:10 PM CDT LABORATORY Non HDL Chol, 168 mg/dL 01/23/2020 [facility] Calculated 12:10 PM CDT LABORATORY Cholesterol/HDL 5.5 01/23/2020 [facility] Ratio 12:10 PM CDT LABORATORY Hours Fasting 12 01/23/2020 [facility] 12:10 PM CDT LABORATORY Specimen Anatomical Collection Method / Collection Time Recei jagdeep Time (Source) Location / Volume Laterality Blood Venipuncture / 01/23/2020 11:11 0 Unknown AM CDT 11:11 AM CDT Felipa Shrestha MD LAB_1 Performing Organization Address City/State/[facility] Code Phon e Number [facility] [id number] [place] [address] (ABNORMAL) Hemoglobin A1C Glycosylated (01/23/2020 11:11 AM CDT) [facility] gist Method Time Signature Hemoglobin A1C 6.1 (H) <=5.6 % 01/23/2020 [employer] 7:12 PM CDT [facility] Specimen Anatomical Collection Method / Collection Time Recei jagdeep Time (Source) Location / Volume Laterality Blood Venipuncture / 01/23/2020 11:11 0 Unknown AM CDT 11:11 AM CDT Narrative [facility] - 01/23/2020 7:12 PM CDT For patients not previously diagnosed with diabetes: 5.7-6.4%: Increased risk for diabetes 6.5% and greater: Diagnostic for diabete s For patients diagnosed with diabetes: <8.0%: Goal of therapy for ages 18-75 Clinicians may recommend a higher or low er goal for specific individuals. Felipa Shrestha MD LAB_1 Performing Organization Address City/State/[facility] Code Phon e Number [facility] [address] [address] documented in this encounter Visit Diagnoses Diagnosis Pre-diabetes Other abnormal glucose Essential hypertension (HRC) Unspecified essential hypertension documented in this encounter Care Teams Instructional Support Technician Relationship Specialty Start Date End Date Felipa Shrestha MD PCP - General Family Practice 08/26/18 [address] [place] [address] documented as of this encounter
--- OUTSIDE RECORDS SUMMARY | 2022-06-24 15:13 | XMS_ITS | Encounter Summary ---
:1970 Author Organization [employer] Address [address] [place] [address] Care Team Providers Name Role Phone Felipa Shrestha MD Primary Care Provider Encounter Details Date Type Department Care Team Description 09/21/2018 Lab Visit [facility] Pre-diabetes; [address] [employer] Well woman exam (no gynecolo gical exam); [place] [address] Essential hypertension [phone] Social History Tobacco Use Types Packs/Day Years [...] Diagnosis Comme nts LIPID PANEL AND Routine 09/21/2018 11:43 Well woman exam (no R esults for this DIRECT LDL(IF AM VAMP MAKER gynecological exam) procedu re are in NEEDED) the results section. BASIC METABOLIC Routine 09/21/2018 11:43 Essential hypertensio n Results for this PANEL AM VAMP MAKER procedure are i n the results section. HGB A1C Routine 09/21/2018 11:43 Pre-diabetes Results for this AM VAMP MAKER procedure are i n the results section. documented in this encounter Results (ABNORMAL) Basic Metabolic Panel (09/21/2018 11:43 AM VAMP MAKER) P athologist Signature Creatinine 0.90 0.55 - PN [...] Normal>60, moderate decrease 30 - 59, se ksaie decrease 15 - 29, renal failure <15 mL/min/1.73 m2 NOTE: ??Choose the eGFR result above jose ropriate for the race of the patient. Specimen Anatomical Collection Method Collection Time Receive d Time (Source) Location / / Volume Laterality 09/21/2018 11:43 09/21/2018 AM VAMP MAKER 11:43 AM VAMP MAKER Narrative [facility]FT - 09/21/2018 12:23 PM VAMP MAKER Performed at [facility] [address] [place] [address] CLIA number [id number] Felipa Shrestha MD LAB_1 Performing Organization Address City/State/ZIP Code Phon e Number [facility] [address] [place] [address] (ABNORMAL) Lipid Panel and Direct LDL(If Needed) (09/21/2018 11:43 AM VAMP MAKER) [facility] Method Time Signature Cholesterol 213 (H) 0 [...] / Volume Laterality 09/21/2018 11:43 09/21/2018 AM VAMP MAKER 11:43 AM VAMP MAKER Narrative PN SOFT - 09/21/2018 12:23 PM VAMP MAKER Performed at [facility] ([facility] [address] [place] [address] CLIA number [id number] Felipa Shrestha MD LAB_1 Performing Organization Address City/[facility] Hospital/ZIP Code Phon e Number [facility] [address] [place] [address] [phone] (ABNORMAL) Hgb A1c (09/21/2018 11:43 AM VAMP MAKER) P athologist Signature HGB A1C 5.8 (H) 4.0 - 5.6 % PN SOFT Specimen Anatomical Collection Method Collection Time Receive d Time (Source) Location / / Volume Laterality 09/21/2018 11:43 09/21/2018 3:51 AM VAMP MAKER PM VAMP MAKER Narrative PN SOFT - 09/21/2018 8:58 PM VAMP MAKER Performed at [address] [address] CLIA number [id number] Felipa Shrestha MD LAB_1 Performing Organization Address [facility] Phon e Number [facility] [address] [place] [address] [phone] documented in this encounter Visit Diagnoses Diagnosis Pre-diabetes Other abnormal glucose Well woman exam (no gynecological exam) Routine general medical examination at a health care facility Essential hypertension (HRC) Unspecified essential hypertension documented in this encounter Care Teams Meat Specialist Relationship Specialty Start Date End Date Felipa Shrestha MD PCP - General Family Practice 08/26/[address] [place] [address] documented as of this encounter
--- OUTSIDE RECORDS SUMMARY | 2022-06-24 15:13 | XMS_ITS | Encounter Summary ---
:1970 Author Organization [employer] Address [address], [place] [address] Care Team Providers Name Role Phone Felipa Shrestha MD Primary Care Provider Reason for Visit Reason Comments COVID Questions CHEST PAIN Encounter Details Date Type Department Care Team Description [facility], COVID Q uestions; CHEST Medicine PAIN [address] [facility] [address] [place] [id number] Social History Tobacco Use Types Packs/Day Years Used Date Smoking Tobacco: Never Smokeless Tobacco: Never Alcohol Use Standard Drinks/Week Comments Yes 0 (1 standard drink = 0.6 oz pure alcoho l) 2 servings a month Sex Assigned at Date Recorded Not on file documented as of this encounter Nursing Notes Felipa Henry RN - 12/08/2019 2:35 PM CDT Advised ER now. Explained that Urgent Care would not be appropriate given her symptoms. Patient was agreeable with this and will head to closest ER to her which he believes is in [place]. Problem list reviewed as related to this call. Initial Screening: Patient information Best Number to contact patient: [phone] Assessment: Current Symptoms: Cough, Shortness of Breath, Sore Throat, tingling lips, burning in chest that is constant, coughing fits, fatigue (sleeping 18 hours). Onset: started last week. Progression: Gotten worse. Have you had close contact with someone with known laboratory confirmed COVID- 19? No Severe/Stat Evaluation for the following symptoms: ??? Severe dyspnea or cyanosis ??? Severe wheezing or severe stridor ??? Excessive drooling/unable to swallow liquids or secretions ??? Acting confused or disoriented ??? Chest pain not associated with coughing or taking a deep breath ??? Sounds serious and/or life threatening STAT Symptoms Noted: Chest pain not associated with coughing or taking a deep breath Triage: Consider 911 or ER per clinical judgement. Disposition: Send to ER Reason for Disposition ??? Difficulty breathing Protocols used: CHEST [id number] Jimbo Jackman - 12/08/2019 2:28 PM CDT PT called in with coughing, sore throat and could hardly speak w/out coughing. 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
--- OUTSIDE RECORDS SUMMARY | 2022-06-24 15:13 | XMS_ITS | Encounter Summary ---
:1970 Author Organization [employer] Address [address], [place] [address] Care Team Providers Name Role Phone Felipa Shrestha MD Primary Care Provider Reason for Visit Reason Comments DIZZINESS Encounter Details Date Type Department Care Team Description 10/27/2018 Nurse Triage [facility] Felipa Fernch MD DIZZINESS [address] [facility] [address] [place] [address] [place] [address] [phone] (Wo rk) Social History Tobacco Use Types Packs/Day Years Used Date Smoking Tobacco: Never Smokeless Tobacco: Never Alcohol Use Standard Drinks/Week Comments Yes 0 (1 standard drink = 0.6 oz pure alcoho l) 2 servings a month Sex Assigned at Date Recorded Not on file documented as of this encounter Nursing Notes Thais Barreto RN - 10/27/2018 10:18 AM CST Pt calling, states she has been intermittently dizzy, feeling faint and having headaches for the past 2 weeks. Pt did take her BP last night and it was 98/63, which is very low for her, was higher thismorning, but still lower than usual for her (pt did not remember exact reading). Pt said she is disoriented, feeling faint when up and moving today (was sitting during our call), felt like her words were not moving from her head to her mouth very fast, pt was speaking slowly during our conversation. Pt was home alone, I advised her to call 911 per protocol. Pt mentioned she will also call her . Pt verbalized an understanding, was comfortable hanging up and calling 911 on her own. Problem list reviewed as related to this call. Reason for Disposition ??? 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
[2022-06-24 18:05] LABS: Chloride* 104 mmol/L (96-114)
[2022-06-24 18:06] LABS: Albumin* 4.6 g/dL (3.3-5.0); Sodium* 139 mmol/L (135-149)
[2022-06-24 18:07] LABS: Potassium* 4.3 mmol/L (3.6-5.1)
[2022-06-24 18:09] LABS: Alkaline Phosphatase* 91 U/L (40-150); Aspartate Amino Transferase* 24 U/L (12-35); Bilirubin Total* 0.6 mg/dL (0.1-1.5); Blood Urea Nitrogen* 16 mg/dL (7-30); Carbon Dioxide* 24 mmol/L (20-32); Cholesterol* 208 mg/dL (90-199); Creatinine* 0.8 mg/dL (0.5-1.5); Estimated Glomerular Filt Rate 89 ml/min; Glucose* 108 mg/dL (60-115); Total Protein* 7.1 g/dL (6.0-8.3)
[2022-06-24 18:10] LABS: Alanine Aminotransferase* 20 U/L (4-35); HDL Cholesterol* 53 mg/dL (>=50); LDL Cholesterol Calculated 122 mg/dL (<100); Triglycerides* 167 mg/dL (40-149)
[2022-06-24 18:20] LABS: Vitamin D 25 Hydroxy* 21 ng/mL (30-80)
[2022-06-24 18:58] LABS: Vitamin B12* 300 pg/mL (243-894)
== END 2022-06-24 15:08 | disposition home or self-care (01) ==
PROVIDERS: PCP Family Medicine; Visit Provider Family Medicine
DX: I10 Essential (primary) hypertension (principal); E53.8 Deficiency of other specified B group vitamins; E55.9 Vitamin D deficiency, unspecified; R73.03 Prediabetes; E66.9 Obesity, unspecified; Z13.6 Encounter for screening for cardiovascular disorders
CPT/HCPCS: 80053; 80061; 82306; 82607

== ENCOUNTER 2022-10-13 08:32 | Outpatient (CLI) | payer MEDICARE, SELFPAY ==
[2022-10-13 11:17] LABS: Vitamin D 25 Hydroxy* 33 ng/mL (30-80)
[2022-10-13 11:49] LABS: Vitamin B12* 626 pg/mL (243-894)
== END 2022-10-13 08:33 | disposition home or self-care (01) ==
LOC: NFLDREF 08:32
PROVIDERS: PCP Family Medicine; Visit Provider Family Medicine
DX: E55.9 Vitamin D deficiency, unspecified (principal); E53.8 Deficiency of other specified B group vitamins
CPT/HCPCS: 82306; 82607

== ENCOUNTER 2022-11-01 20:26 | Outpatient (CLI) | payer MEDICARE, SELFPAY ==
--- NOTE | 2022-11-03 12:24 | W.PM.SLEEP ---
Sleep Study Details Details Interpreting Provider: Miquel Weldon MD Date of Sleep Study: 11/01/22 Sleep Study Details: STUDY TYPE:? Hospital without CPAP ? BMI:? 39.4 ORDERING PROVIDER:? Mane INDICATION:? Concerns about sleep apnea ? SLEEP SUMMARY:? Total sleep time 371.5 minutes, efficiency 79, arousal index 16.8 RESPIRATORY SUMMARY:? AHI 12, RDI 20.3 Supine AHI 28.6, supine REM AHI 38 Nonsupine AHI 2.5, nonsupine RDI 11.4 low oxygen 82 10.7 minutes oxygen between 80 and 88% PERIODIC LIMB MOVEMENTS OF SLEEP:? None CARDIAC:? Awake 82, asleep 78, no arrhythmias noted IMPRESSION:? Mild to moderate obstructive sleep apnea with an overall AHI of 12 and an RDI of 20.3. There is significant supine and REM dependency RECOMMENDATION: AutoSet CPAP pressure 4-17. A dental appliance may be beneficial. Weight loss is recommended.
== END 2022-11-01 20:27 | disposition home or self-care (01) ==
LOC: SLEEP 20:27
PROVIDERS: PCP Family Medicine; Visit Provider Family Medicine
DX: G47.33 Obstructive sleep apnea (adult) (pediatric) (principal)
CPT/HCPCS: 95810

== ENCOUNTER 2022-12-22 12:33 | Emergency (ER) | payer MEDICARE, SELFPAY ==
[2022-12-22 12:36] VITALS: BP 145/98; PULSE 83; RESP 20; TEMP 36.2; O2SAT 100; BMI 40.6
--- NOTE | 2022-12-22 12:53 | CRLHL7_ITS ---
For Patients: As a result of the Century Cures Act, medical imaging exams and procedure reports are released immediately into your electronic medical record. You may view this report before your referring provider. If you have questions, please contact your health care provider. INDICATION: Headache. Strange feeling. Twitching from time to time COMPARISON: None TECHNIQUE: CT examination of the head was performed as axial sections without intravenous contrast. Images were obtained from the vertex of the skull through the skull base. Please note that all CT scans at this facility use dose modulation, iterative reconstruction, and/or weight-based dosing when appropriate to reduce radiation dose to as low as reasonably achievable. FINDINGS: The brain shows no sign of mass lesion, mass effect, hemorrhage, or edema. The ventricles and sulci are normal in appearance for the patient`s age. The visualized portions of the orbits are normal in appearance. The osseous structures are normal in their appearance with no sign of abnormality in the skull base or calvarium. Incidental dense calcification the falx anteriorly. Minor paranasal sinus mucosal inflammatory disease. IMPRESSION: No acute intracranial findings. Please note that all CT scans at this facility use dose modulation, iterative reconstruction, and/or weight-based dosing when appropriate to reduce radiation dose to as low as reasonably achievable. Dictated by Pete Santamaria MD @ 12/22/2022 3:12:51 PM (Electronically Signed)
--- NOTE | 2022-12-22 13:09 | ED_ITS ---
HPI - General Adult General Date Seen: 12/22/22 Chief complaint: Neuro Symptoms/Altered Deficit Stated complaint: Chest pain, tingly, blacked out on way here Time Seen by Provider: 12/22/22 12:52 Source: patient and family Mode of arrival: ambulatory Limitations: no limitations History of Present Illness HPI narrative: Patient is a very nice 52-year-old female who presents here with her Ajay, for evaluation of just being out of it, she texted her approximate hour hour half ago and says she just feels that her whole body is heavy, if she feels some numbness bilaterally over her face, in feels like it is very effort based even stand or walk or move around. She denies taking any drugs or alcohol, but says it feels like she is out of it possibly from this. Does have a history of hemiplegic migraines, but this is different, she just feels so tired. Seemingly denies being homicidal or suicidal, associated with this no fevers chills or sweats, and really not feeling sick denies any nausea, vomiting, abdominal pain, or any other symptoms. Tells me her vision is normal, she does not feel that she is overly dizzy, when she moves her head or moves around. She did have a headache before this, and took her rizatriptan, Onset (ago): hour(s) Related Data Home Medications Medication Instructions Recorded Confirmed amitriptyline 25 mg tablet 25 mg PO .Bedtime 06/24/22 12/22/22 dexamethasone 1 mg tablet 1 mg PO .Daily as needed PRN 06/24/22 11/25/22 frovatriptan 2.5 mg tablet 2.5 mg PO PRN 06/24/22 11/25/22 ketorolac 10 mg tablet 10 mg PO ONCE 06/24/22 11/25/22 prednisone 10 mg tablet 10 mg PO .as needed PRN 06/24/22 11/25/22 promethazine 25 mg tablet 25 mg PO PRN 06/24/22 11/25/22 sumatriptan succinate 6 mg/0.5 mL mg subcut .As Needed PRN 06/24/22 11/25/22 subcutaneous solution verapamil 240 mg tablet,extended 240 mg PO DAILY 06/24/22 12/22/22 release balsalazide 750 mg capsule 2,250 mg PO TID 08/05/22 12/22/22 galcanezumab-gnlm 120 mg/mL 120 mg subcut ONCE 10/16/22 11/25/22 subcutaneous pen injector (Emgality Pen) ubrogepant 100 mg tablet (Ubrelvy) 100 mg PO ONCE PRN 10/16/22 11/25/22 Previous Rx's Medication Instructions Recorded cholecalciferol (vitamin D3) 25 25 mcg PO QDAY #120 caps 10/16/22 mcg (1,000 unit) capsule cyanocobalamin (vitamin B-12) 1,000 mcg PO QDAY #120 caps 10/16/22 1,000 mcg capsule hydrochlorothiazide 25 mg tablet 25 mg PO DAILY #90 tabs 10/16/22 metformin 500 mg tablet,extended 1,000 mg (2 x 500 mg) PO QDAY #180 10/16/22 release 24 hr tabs Allergies Allergy/AdvReac Type Severity Reaction Status Date / Time fentanyl Allergy Severe Anaphylaxis Verified 11/25/22 13:23 morphine Allergy Intermediate edema Verified 11/25/22 13:23 diazepam Allergy Unknown low Verified 11/25/22 13:23 respirations hydroxyzine Allergy Unknown low Verified 11/25/22 13:23 respirations iodine Allergy Unknown Anaphylaxis Verified 11/25/22 13:23 ondansetron Allergy Unknown Nausea Verified 11/25/22 13:23 Shellfish Allergy Allergy Unknown Anaphylaxis Uncoded 11/25/22 13:23 Review of Systems Status of ROS: Reports: 10 or more systems reviewed and unremarkable except as noted in History and below [facility] Medical History Vitamin D deficiency ?E55.9 - Vitamin D deficiency, unspecified (ICD-10) Ulcerative colitis ?K51.90 - Ulcerative colitis, unspecified, without complications (ICD-10) Prolonged QT interval ?R94.31 - Abnormal electrocardiogram [ECG] [EKG] (ICD-10) Prediabetes ?R73.03 - Prediabetes (ICD-10) Dizziness ?R42 - Dizziness and giddiness (ICD-10) PCOS (polycystic ovarian syndrome) ?E28.2 - Polycystic ovarian syndrome (ICD-10) Surgical History History of laparoscopy (1984) ?Z98.890 - Other specified postprocedural states (ICD-10) History of hysterectomy for benign disease (1996) ?Z90.710 - Acquired absence of both cervix and uterus (ICD-10) History of cholecystectomy (1997) ?Z90.49 - Acquired absence of other specified parts of digestive tract (ICD- 10) History of appendectomy (1996) ?Z90.49 - Acquired absence of other specified parts of digestive tract (ICD- 10) Family History Mother Bipolar disorder Father Diabetes Colon cancer, Onset Age: 75 Prostate cancer Social History Narrative: , 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, 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, 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, Does not exercise, will start at least 30 minutes 3 times a week nonsmoker, rarely consumes alcohol Smoking Status: Former smoker How often do you have a drink containing alcohol: monthly or less AUDIT-C Alcohol total score: 1 Non-prescribed substance use: denies use Little interest or pleasure in doing things: not at all Feeling down, depressed, or hopeless: not at all Exam Narrative: Exam Narrative: Patient is seen in room 1 she is very slow to respond to me talking but she appears to have symmetrical faces, her pupils are equal round reactive to light she follows normally with no nystagmus or TMs are normal her oropharynx is normal, the neck is supple full range of motion, there is no lymphadenopathy anterior posterior chains, cranial nerves 3-12 are entirely normal, chest is clear bilaterally heart sounds are normal she is able to sit up for me, 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 Heart sounds normal no clicks murmurs or gallops chest is clear bilaterally no wheezing crackles noted abdomen is soft there is no guarding no tenderness to palpation no rashes, symmetrical sensation is noted both right and left. Const: Vital Signs, click to edit/add: Vital Signs - 24 hr 12/22/22 12:36 12/22/22 14:30 Temperature 97.2 F L Pulse Rate [Right Pulse Oximeter] 83 67 Respiratory Rate 20 16 Blood Pressure [Ri ght Upper Arm] 145/98 H 128/77 Pulse Oximetry 100 98 Oxygen Delivery Me thod Room Air Room Air Documenting provider has reviewed patient's vital signs: yes Course Course Hospital Course: I went back in and checked on the patient a couple time she murmur sling improved with her treatment (2 L of fluid, Toradol IV), she was smiling feeling better in saying I think this is my complicated migraine, her head CT returned showing normal findings her laboratory work was normal. I went back into her see her 1 final time, and she was nauseous and was retching. She told me she needs her Phenergan, and I will give it to her IV, but she would like to go home which I do not think is unreasonable. She has medications at home that she can take, and we talked about warning signs with her and her . She will be brought back if any of these occur, or changes. Vital Signs Vital signs: Initial Vital Signs Temperature 97.2 F L 12/22/22 12:36 Temperature Source Temporal Artery Scan 12/22/22 12:36 Pulse Rate 83 12/22/22 12:36 Respiratory Rate 20 12/22/22 12:36 Blood Pressure 145/98 H 12/22/22 12:36 Blood Pressure Mean 113 H 12/22/22 12:36 Blood Pressure Position Sitting 12/22/22 12:36 Pulse Oximetry 100 12/22/22 12:36 Oxygen Delivery Method Room Air 12/22/22 12:36 Vital Signs Temperature 97.2 F L 12/22/22 12:36 Pulse Rate 83 12/22/22 12:36 Respiratory Rate 20 12/22/22 12:36 Blood Pressure 145/98 H 12/22/22 12:36 Pulse Oximetry 100 12/22/22 12:36 Oxygen Delivery Method Room Air 12/22/22 12:36 Temperature 97.2 F L 12/22/22 12:36 Pulse Rate 67 12/22/22 14:30 Respiratory Rate 16 12/22/22 14:30 Blood Pressure 128/77 12/22/22 14:30 Pulse Oximetry 98 12/22/22 14:30 Oxygen Delivery Method Room Air 12/22/22 14:30 Medical Decision Making MDM Narrative Medical decision making narrative: Life-threatening differential diagnosis include subarachnoid hemorrhage, meningitis, encephalitis, carbon monoxide poisoning, and intracerebral hemorrhage. 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, mass lesion, temporal arteritis, click acute closed angle glaucoma, septal and trigeminal neuralgia, sinusitis, closed head injury, and stroke Medical Records Medical records reviewed: Yes I reviewed the patient's medical records Lab Data Lab results reviewed: Yes I reviewed the patient's lab results Labs: Lab Results 12/22/22 12/22/22 12/22/22 Range/Units 13:10 13:10 13:26 WBC 7.50 (4.50-11.00) K/uL RBC 5.19 (4.00-5.20) m/uL Hgb 14.7 (12.0-16.0) gm/dL Hct 44.8 (33.0-51.0) % MCV 86 (80-100) fL MCH 28 (26-34) pg MCHC 33 (32-36) gm/dL RDW Coeff of Tiny 12.6 (11.5-15.5) % Plt Count 356 (140-440) K/uL Neut % (Auto) 57.0 (42.0-72.0) % Lymph % (Auto) 28.0 (20-44) % [place] % (Auto) 11.9 H (0.0-11.0) % Eos % (Auto) 2.7 (0.0-7.0) % Baso % (Auto) 0.3 (0.0-3.0) % Neut # (Auto) 4.28 (1.7-7.0) K/uL Lymph # (Auto) 2.10 (0.90-2.90) K/uL [place] # (Auto) 0.90 (0.00-0.90) K/UL Eos # (Auto) 0.20 (0.00-0.50) K/uL Baso # (Auto) 0.02 (0.00-0.30) K/uL Sodium 138 (135-149) mmol/L Potassium 3.8 (3.6-5.1) mmol/L Chloride 104 (96-114) mmol/L Carbon Dioxide 26 (20-32) mmol/L BUN 19 (7-30) mg/dL Creatinine 0.8 (0.5-1.5) mg/dL Estimated Creat Clear 79.09 Estimated GFR 88 ml/min Glucose 149 H (60-115) mg/dL Lactate 1.4 (0.5-1.9) mmol/L Calcium 9.2 (8.4-10.6) mg/dL C-Reactive Protein 0.7 (0.5-1.0) mg/dL Procalcitonin 0.04 (<0.50) ng/mL Urine Color Yellow (Yellow) Urine Appearance Clear (Clear) Urine pH 7.0 (5.0-8.5) Ur Specific [place] 1.010 (1.000-1.030) Urine Protein Negative (Negative) Urine Glucose (UA) Negative (Negative) Urine Ketones Negative (Negative) Urine Blood Negative (Negative) Urine Nitrite Negative (Negative) Urine Bilirubin Negative (Negative) Urine Urobilinogen 0.2 (0.2-1.0) Ur Leukocyte Esterase 1+ A (Negative) Urine RBC 0-2 (0-2) Urine WBC 0-2 (0-5) Ur Squamous Epith Cells None (None-Few) Urine Bacteria None (None) Urine Opiates Screen Negative (Negative) Ur Oxycodone Screen Negative (Negative) Urine Methadone Screen Negative (Negative) Ur Propoxyphene Screen Negative (Negative) Ur Barbiturates Screen Negative (Negative) U Tricyclic Antidepress POSITIVE A* (Negative) Ur Phencyclidine Scrn Negative (Negative) Ur Amphetamines Screen Negative (Negative) U Methamphetamines Scrn Negative (Negative) U Benzodiazepines Scrn Negative (Negative) Urine Cocaine Screen Negative (Negative) U Marijuana (THC) Screen Negative (Negative) Ur Drug Screen Comment See Note Ethyl Alcohol < 0.01 L Cancelled (0.01-0.03) % SARS-CoV-2 (PCR) Negative SARS-CoV-2 (Negative) Influenza Type A (PCR) Negative PCR FLU A (Negative) Influenza Type B (PCR) Negative PCR FLU B (Negative) RSV (PCR) Negative PCR RSV (Negative) POC Troponin I 0.00 L (0.01-0.04) ng/ml Imaging Data CT scan - head: Attestation: I have reviewed the pertinent imaging results. My impression: Nothing acute Radiologist's impression: Patient: BLAYNE BROWN Facility:?[facility] Patient ID:?[id number] Site Patient ID:?[id number]. Site :?[id number] Study:?CT Head w/o Contrast-12/22/2022 2:02:02 PM Ordering Physician:Jeremías Rodriguez Final Report: INDICATION: Headache. Strange feeling. Twitching from time to time COMPARISON: None TECHNIQUE: CT examination of the head was performed as axial sections without intravenous contrast. Images were obtained from the vertex of the skull through the skull base. Please note that all CT scans at this facility use dose modulation, iterative reconstruction, and/or weight-based dosing when appropriate to reduce radiation dose to as low as reasonably achievable. FINDINGS: The brain shows no sign of mass lesion, mass effect, hemorrhage, or edema. The ventricles and sulci are normal in appearance for the patient`s age. The visualized portions of the orbits are normal in appearance. The osseous structures are normal in their appearance with no sign of abnormality in the skull base or calvarium. Incidental dense calcification the falx anteriorly. Minor paranasal sinus mucosal inflammatory disease. IMPRESSION: No acute intracranial findings. Please note that all CT scans at this facility use dose modulation, iterative reconstruction, and/or weight-based dosing when appropriate to reduce radiation dose to as low as reasonably achievable. Dictated by Pete Santamaria MD @ 12/22/2022 3:12:51 PM (Electronic Signature) ECG Data Attestation: I personally reviewed and interpreted this ECG as follows: Prior ECG tracings: not available for review Interpretation: Normal sinus rhythm with occasional PVCs, QRS QT and QTC are all normal. Assessment normal EKG with no acute changes Discharge Plan Discharge Clinical Impression: Complicated migraine Patient Disposition: Home w/ Parent or Adult Condition: Improved Instructions: Migraine Headache (ED) Additional Instructions: As I discussed with you I think this is a complicated migraine, we will give you some Phenergan allow you to go home if it worsens or you have any other worsening symptoms then return here, follow-up with primary care, Prescriptions: No Action verapamil 240 mg tablet extended release 240 mg PO DAILY frovatriptan 2.5 mg tablet 2.5 mg PO PRN promethazine 25 mg tablet 25 mg PO PRN dexamethasone 1 mg tablet 1 mg PO .Daily as needed PRN amitriptyline 25 mg tablet 25 mg PO .Bedtime ketorolac 10 mg tablet 10 mg PO ONCE prednisone 10 mg tablet 10 mg PO .as needed PRN sumatriptan succinate 6 mg/0.5 mL solution subcut .As Needed PRN Rx Instructions: INJECT 6 MG SC AT ONSET OF HEADACHE, MAY REPEAT ONCE IN 1 HR PRN, MAX 2 INJECTIONS/24 HRS balsalazide 750 mg capsule 2,250 mg PO TID Emgality Pen 120 mg/mL pen injector 120 mg subcut ONCE Ubrelvy 100 mg tablet 100 mg PO ONCE PRN Rx Instructions: as a single dose; may repeat once in >=2 hours after first dose if needed cholecalciferol (vitamin D3) 25 mcg (1,000 unit) capsule 25 mcg PO QDAY Qty: 120 3RF cyanocobalamin (vitamin B-12) 1,000 mcg capsule 1,000 mcg PO QDAY Qty: 120 4RF hydrochlorothiazide 25 mg tablet 25 mg PO DAILY Qty: 90 4RF metformin 500 mg tablet extended release 24 hr 1,000 mg PO QDAY Qty: 180 4RF Follow Up/Referrals: Violet Gilliam MD [Primary Care Provider] - Stand Alone Forms: [employer] Info Instructions
[2022-12-22 13:18] LABS: Lactate* 1.4 mmol/L (0.5-1.9)
[2022-12-22 13:21] LABS: Basophils Absolute Auto 0.02 K/uL (0.00-0.30); Basophils Percent Auto 0.3 % (0.0-3.0); Eosinophils Percent Auto 2.7 % (0.0-7.0); Hematocrit 44.8 % (33.0-51.0); Hemoglobin* 14.7 gm/dL (12.0-16.0); Immature Granulocytes Abs Auto 0.01 K/uL (0.00-0.30); Immature Granulocytes Pct Auto 0.1 %; Mean Corpuscular HGB Conc 33 gm/dL (32-36); Mean Corpuscular Hemoglobin 28 pg (26-34); Mean Corpuscular Volume 86 fL (80-100); Monocytes Percent Auto 11.9 % (0.0-11.0); Neutrophils Absolute Auto 4.28 K/uL (1.7-7.0); Platelet Count* 356 K/uL (140-440); RDW Coefficient of Variation % 12.6 % (11.5-15.5); Red Blood Count 5.19 m/uL (4.00-5.20)
[2022-12-22 13:32] LABS: Chloride* 104 mmol/L (96-114)
[2022-12-22] MEDS: KETOROLAC 15 MG/ML inj IVP (13:36)
[2022-12-22] MEDS: 0.9 % SODIUM CHLORIDE 1000 ml 1,000 ML IV ×2 (13:36→14:34)
--- NOTE | 2022-12-22 13:37 | ED.NURSE ---
pt up to bs, urine collected and sent to lab.
[2022-12-22 13:50] LABS: Slide Review Reflex No
[2022-12-22 13:51] LABS: Amphetamine Screen Urine Negative (Negative); Appearance Urine Clear (Clear); Barbiturate Screen Urine Negative (Negative); Benzodiazepines Screen Urine Negative (Negative); Bilirubin Urine Negative (Negative); Blood Urine Negative (Negative); Cannabinoid Screen Urine Negative (Negative); Cocaine Screen Urine Negative (Negative); Color Urine Yellow (Yellow); Glucose Urine Negative (Negative); Ketones Urine Negative (Negative); Leukocyte Esterase Urine 1+ (Negative); Methadone Screen Urine Negative (Negative); Methamphetamines Screen Urine Negative (Negative); Nitrite Urine Negative (Negative); Opiate Screen Urine Negative (Negative); Oxycodone Screen Urine Negative (Negative); Phencyclidine Screen Urine Negative (Negative); Protein Urine Negative (Negative); Urobilinogen Urine 0.2 (0.2-1.0)
[2022-12-22 13:58] LABS: PCR FLU A Negative PCR FLU A (Negative); PCR FLU B Negative PCR FLU B (Negative); PCR RSV Negative PCR RSV (Negative)
[2022-12-22 13:59] LABS: Tricyclic Antidepressant Urine POSITIVE (Negative)
[2022-12-22 14:03] LABS: SARS PCR* Negative SARS-CoV-2 (Negative)
[2022-12-22 14:13] LABS: RBC Urine 0-2 (0-2); WBC Urine 0-2 (0-5)
[2022-12-22 14:25] LABS: Potassium* 3.8 mmol/L (3.6-5.1); Sodium* 138 mmol/L (135-149)
[2022-12-22 14:28] LABS: Creatinine* 0.8 mg/dL (0.5-1.5); Est. Creatinine Clearance* 79.09; Estimated Glomerular Filt Rate 88 ml/min
[2022-12-22 14:29] LABS: Blood Urea Nitrogen* 19 mg/dL (7-30); Calcium* 9.2 mg/dL (8.4-10.6); Carbon Dioxide* 26 mmol/L (20-32); Glucose* 149 mg/dL (60-115)
[2022-12-22 14:30] VITALS: BP 128/77; PULSE 67; RESP 16; O2SAT 98
[2022-12-22 14:32] LABS: C Reactive Protein* 0.7 mg/dL (0.5-1.0)
--- NOTE | 2022-12-22 14:40 | ED.NURSE ---
pt feeling better, states she thinks it was a migraine. talking and smiling now. was able to ambulate to br independent. did have a little dizziness with ambulating. at bedside.
[2022-12-22 14:46] LABS: Procalcitonin* 0.04 ng/mL (<0.50)
[2022-12-22 14:54] LABS: Ethanol* < 0.01 % (0.01-0.03)
--- NOTE | 2022-12-22 16:15 | ED.NURSE ---
IV in Pt R wrist occluded, unable to flush. New IV started in pt L AC to give last IV med. Both IV's DC'd after med given, catheters intact on both IVs.
[2022-12-22] MEDS: PROMETHAZINE 25 MG/ML INJ 12.5 MG IVP (16:17)
[2022-12-22 16:38] VITALS: BP 135/77; PULSE 72; O2SAT 97
== END 2022-12-22 16:39 | disposition home or self-care (01) ==
PROVIDERS: Emergency Provider Family Medicine; PCP Family Medicine
DX: G43.909 Migraine, unspecified, not intractable, without status migrainosus (principal)
CPT/HCPCS: 36415; 70450; 80048; 80306; 81001; 82077; 83605; 84145; 84484; 85025; 86140; 87631; 93005; 96361; 96374; 96375; 99284; 99285; J1885; J2550; J7030

== ENCOUNTER 2023-02-22 13:26 | Outpatient (CLI) | payer MEDICARE, SELFPAY ==
--- NOTE | 2023-02-22 13:40 | CRLHL7_ITS ---
For Patients: As a result of the Century Cures Act, medical imaging exams and procedure reports are released immediately into your electronic medical record. You may view this report before your referring provider. If you have questions, please contact your health care provider. BILATERAL SCREENING MAMMOGRAM WITH COMPUTER-AIDED DETECTION TECHNIQUE: CC and MLO views were obtained. These mammographic images have been obtained using full-field digital technique. These mammographic images were interpreted with the benefit of computer-aided detection. COMPARISON FILM: Baseline. FINDINGS: There are scattered areas of fibroglandular density IMPRESSION: There is no radiographic evidence for malignancy. ASSESSMENT: BI-RADS Category 1: Negative RECOMMENDATION: Routine screening mammogram in 1 year. A lay language report of this examination will be provided to the patient. Derrell Hu M.D. Diagnostic Radiologist [email or web address] JOSÉ MIGUEL/Dictated by: Derrell Hu MD @ 02/24/2023 9:01:00 AM (Electronically Signed)
== END 2023-02-22 13:27 | disposition home or self-care (01) ==
LOC: MAMMO 13:27
PROVIDERS: PCP Family Medicine; Visit Provider Family Medicine
DX: Z12.31 Encounter for screening mammogram for malignant neoplasm of breast (principal)
CPT/HCPCS: 77067

== ENCOUNTER 2023-04-09 15:26 | Outpatient (CLI) | payer MEDICARE, SELFPAY | END 2023-04-09 15:27 | disposition home or self-care (01) | LOC: NFLDREF 04-11 06:50 | PROVIDERS: PCP Family Medicine; Referring Provider Family Medicine; Visit Provider Family Medicine | DX: R73.03 Prediabetes (principal); I10 Essential (primary) hypertension; E78.5 Hyperlipidemia, unspecified; Z01.818 Encounter for other preprocedural examination; G43.409 Hemiplegic migraine, not intractable, without status migrainosus | CPT/HCPCS: 80053; 80061 ==

== ENCOUNTER 2023-06-25 10:30 | Day surgery (SDC) | payer MEDICARE, SELFPAY ==
[2023-06-25] VITALS (14 sets, daily range): BP systolic 118–142; BP diastolic 70–100; PULSE 68–87; RESP 10–18; TEMP 36.3–36.9; O2SAT 95–100; BMI 38.9
[2023-06-25] MEDS: LACTATED RINGERS 1000 ML 1,000 ML 100 ML IV (10:40)
[2023-06-25] MEDS: SODIUM CHLORIDE 0.9 % (FLUSH) 10 ML SYRINGE IVF (10:56)
[2023-06-25] MEDS: OXYMETAZOLINE 0.05% NASAL SPRAY 2 SPRAY NOSTRIL-B (11:00)
--- NOTE | 2023-06-25 11:56 | SUR.OPER ---
PATIENT QUESTIONS ANSWERED SATISFACTORILY PREOPERATIVELY. PATIENT BROUGHT TO OR #1 PER CART. Patient positioned supine on OR #1 bed. Perioperative team tucked arms bilaterally at patient side with drawsheet. ? Final approval of positioning by surgeon.
[2023-06-25] MEDS: COCAINE HCL 4 % 4 ML SOLUTION NOSTRIL-B (12:15)
[2023-06-25] MEDS: BUPIVACAINE 0.5%/EPINEPHRINE 0.9 MG (30.9 ML) INJECTION (12:22)
[2023-06-25] MEDS: AYR SALINE NASAL GEL 1 APPLIC NOSTRIL-B (12:23)
[2023-06-25] MEDS: SCOPOLAMINE 1 MG/3 DAY PATCH 1 PATCH TRANSDERMA (12:27)
[2023-06-25] MEDS: MUPIROCIN 1 GM PACKET 1 APPLIC TOPICAL (12:28)
--- NOTE | 2023-06-25 12:45 | W.PM.ENTPROC ---
Procedure Note Date of procedure: 06/25/23 Procedure: Preoperative diagnosis nasal obstruction, bilateral inferior turbinate hypertrophy, bilateral large middle turbinate dorian bullosa, migraine history Postoperative diagnosis same Procedure submucous partial resection inferior turbinates bilateral, endoscopic bilateral partial resection middle turbinate dorian bullosa Under general trach anesthesia patient was prepped and draped usual fashion and the nose injected and decongested. A stab incision was made in the anterior of the right inferior turbinate a tunnel created with a Windham dissector. A conservative anterior submucous resection was performed. Coblation was then used for hemostasis and to cauterize intramurally along the inferior 10%. This was repeated on the left side in identical fashion. The remainder procedure was done with the available assistance of a 0 degree endoscope. Assist 15 blade was used to incise the anterior-inferior portion of the right middle turbinate dorian bullosa. The incision was then completed with a turbinate scissors along the length of the turbinate. The Mathews forceps and Hosea dissector were then used to crush the right middle turbinate dorian bullosa. The 0 degree scope was used to be sure I had gotten the posterior portion which I would appear to have crushed. This was repeated on the left side in identical fashion. Merocel packing was placed lateral to each middle turbinate. The patient procedure well was taken recovery in satisfactory condition. Blood loss was less than 10 mL. Surgeon: Miquel Weldon MD
[2023-06-25] MEDS: HYDROmorphone 0.5 mg/0.5 ml inj IVP ×3 (12:56→13:14)
--- NOTE | 2023-06-25 12:56 | W.ANESCHARGE ---
Anesthesia Charges Start Date/Time Anesthesia Start Date: 06/25/23 Anesthesia Start Time: 12:01 Stop Date/Time Anesthesia Stop Date: 06/25/23 Anesthesia Stop Time: 12:46
--- NOTE | 2023-06-25 13:34 | W.ANESCHARGE ---
Anesthesia Charges Start Date/Time Anesthesia Start Date: 06/25/23 Anesthesia Start Time: 12:01 Stop Date/Time Anesthesia Stop Date: 06/25/23 Anesthesia Stop Time: 12:46
[2023-06-25] MEDS: ACETAMINOPHEN 325 MG TABLET PO (13:35)
[2023-06-25] MEDS: OXYCODONE 5 MG TABLET PO (13:36)
== END 2023-06-25 14:46 | disposition home or self-care (01) ==
LOC: OR 10:30
PROVIDERS: PCP Family Medicine; Visit Provider Otolaryngology
PROC: (CPT 31231; principal; 2023-06-25 11:45)
DX: J34.3 Hypertrophy of nasal turbinates (principal); J34.89 Other specified disorders of nose and nasal sinuses
CPT/HCPCS: 30140; 31240; 00160; A9270; J0330; J1100; J1170; J2250; J2704; J3010; J7120

== ENCOUNTER 2023-10-05 10:10 | Outpatient (CLI) | payer MEDICARE, SELFPAY ==
--- OUTSIDE RECORDS SUMMARY | 2023-10-06 06:36 | XMS_ITS | Clinical Summary ---
Author Name Unknown Organization [facility] Address [address] [place] [address] Care Team Providers Care Labor Supervisor Name Role Phone Felipa Shrestha MD Primary Care Provider [phone] Source Comments You are receiving this document as you are listed as the primary care provider,follow-up provider, or the patient has been referred to you for consultation.This is in compliance with the Medicare and[facility] EHR Incentive Program,which states Providers who transition their patient to another setting of careor provider of care or refers their patient to another provider of care shouldprovide summary care record for each transition of care or referral. [place] Allergies Active Allergy Reactions Criticality Noted Date Comments Fentanyl 09/21/2018 Morphine 09/21/2018 Diazepam 09/21/2018 Hydroxyzine 09/21/2018 Ondansetron 09/21/2018 Medications Medication Sig Dispensed Refills Start Date End Date Status DIAZEPAM RE Active drug not in computerIndication s:frovatritan 2.5 Indications: frovatritan 2.5 Active promethazine (PHENERGAN) 25 MG tabletIndications: Hemiplegic migraine without status migrainosus, not intractable Take 1 Tablet by mouth every 6 hours as needed for Nausea. 30 Tablet 3 01/22/2020 Active ketorolac (TORADOL) 10 MG tabletIndications: Hemiplegic migraine without status migrainosus, not intractable Take 1 Tablet by mouth every 6 hours as needed (for migraines). 30 Tablet 2 01/22/2020 Active dexamethasone (DECADRON) 1 MG tabletIndications: Hemiplegic migraine without status migrainosus, not intractable 4 mg for 3 days, 2mg for 1 day, then 1mg x 1 day. 15 Tablet 3 01/22/2020 Active Accu-Chek Mindy Plus meterIndications:P re-diabetes Use to test daily. Use as directed. Pharmacy dispense brand based on insurance. Code R73.03 1 Each 01/24/2020 Active lancet (ACCU-CHEK FASTCLIX) deviceIndications: Pre-diabetes Use to test daily. Use as directed. Pharmacy dispense brand based on insurance. Code R73.03 1 Each 01/24/2020 Active verapamil (VERELAN) 240 MG 24 hour release capsuleIndications :Hemiplegic migraine without status migrainosus, not intractable,Migrai ne with aura and without status migrainosus, not intractable Take 1 Capsule by mouth every evening. 90 Capsule 3 04/23/2020 Active ACCU-CHEK GUIDE test stripIndications:P re-diabetes USE TO TEST DAILY 100 Strip 3 01/29/2021 Active metFORMIN XR (GLUCOPHAGE XR) 500 MG 24 hour release tabletIndications: Pre-diabetes Take 4 Tablets by mouth daily with breakfast. 360 Tablet 02/01/2021 Active B ComplexIndications :Hemiplegic migraine with status migrainosus, not intractable,Vitami n B12 deficiency (HRC) Take one capsule 3 days a week. 60 Capsule 02/04/2021 Active ferrous sulfate 325 (65 Fe) MGIndications:Musc le cramping,Low ferritin level Take one tab daily with food. 90 Tablet 02/04/2021 Active amitriptyline (ELAVIL) 25 MG tabletIndications: Hemiplegic migraine without status migrainosus, not intractable Take 1 Tablet by mouth daily at bedtime. 90 Tablet 1 05/06/2021 Active SUMAtriptan (IMITREX) 6 MG/0.5ML injectionIndicatio ns:Hemiplegic migraine without status migrainosus, not intractable Inject 0.5 mL subcutaneously once as needed. 2 mL 11 05/06/2021 Active hydroCHLOROthiazid e (ORETIC) 25 MG tabletIndications: Essential hypertension (HRC) TAKE 1 TABLET BY MOUTH DAILY. 90 Tablet 08/06/2021 Active SUMAtriptan (IMITREX STATDOSE REFILL) 6 MG/0.5ML injectionIndicatio ns:Hemiplegic migraine without status migrainosus, not intractable Inject 0.5 mL (6 mg) subcutaneously once as needed. May repeat in 2 hours. MAX 2 doses a day. 2 mL 11 10/26/2021 Active frovatriptan (FROVA) 2.5 MG tabletIndications: Hemiplegic migraine without status migrainosus, not intractable Take 1 Tablet (2.5 mg) by mouth as needed (migraine). 9 Tablet 1 01/05/2022 Active predniSONE (DELTASONE) 20 MG tabletIndications: Hemiplegic migraine with status migrainosus, not intractable Take 1 Tablet (20 mg) by mouth daily. For 3-5 days for migraine flare. 5 Tablet 02/06/2022 Active Active Problems Problem Noted Date Diagnosed Date Morbid obesity with BMI of 40.0-44.9, adult 09/2019 Prolonged QT interval 01/25/2020 MORIS (obstructive sleep apnea) 11/10/2018 Overview: Moderate, see scan doc 10/2018. Pre-diabetes 09/21/2018 SALLY (generalized anxiety disorder) 09/21/2018 Chronic ulcerative colitis 09/21/2018 Hemiplegic migraine 09/21/2018 Vitamin D deficiency 09/21/2018 Vitamin B12 deficiency 09/21/2018 Current moderate episode of major depressive disorder without prior episode 09/21/2018 Essential hypertension 09/21/2018 Secondary seizure disorder 09/21/2018 Overview: From hemiplegic migraines Polycystic ovary syndrome 03/05/2004 Resolved Problems Problem Noted Date Diagnosed Date Resolved Date Spasm of muscle 09/21/2018 08/02/2020 Nonintractable epilepsy 09/21/201808/25 Overview: From her migraines. Family History Medical [...] 0 (1 standard drink = 0.6 oz pur e alcohol) 2 servings a month Sex and Gender Information Value Date Recorded Sex Assigned at Not on file Gender Identity Not on file Sexual Orientation Not on file Last Filed Vital Signs [...] Last Done Comments Colon Cancer Screening Plan Due 1970 Hep C Screening (Preventive Services) 1969 HepB (1) 1970 Medicare Annual Wellness Visit 1970 Mammogram 1969 HIV Screening (Preventive Services) 1985 DTaP/Tdap/Td (1 - Tdap) 1988 Zoster/Shingles (1 of 2) 11/14/2019 Prediabetes: HGBA1C 01/22/2021 01/23/2020, 09/21/2018 COVID-19 Vaccine (2 - 2022-2 4 season) 2023 04/18/2021 Influenza (#1) 2023 Cholesterol 01/22/2025 01/23/2020, 09/21/2018 HepA Aged Out No longer eligi ble based on patient's age to complete this topic Hib Aged Out No longer eligi ble based on patient's age to complete this topic IPV (Polio) Aged Out No longer eligi ble based on patient's age to complete this topic MCV4 Aged Out No longer eligi ble based on patient's age to complete this topic Pneumococcal Aged Out No longer eligi ble based on patient's age to complete this topic Procedures Procedure Name Priority Date/Time Associated Diagnosis Comments HGB A1C Routine 01/23/2020 11:11 AM CDT Pre-diabetes LIPID PANEL & DIRECT LDL (IF NEEDED) Routine 01/23/2020 11:11 AM CDT Essential hypertension from Last 3 Months or Most Recently Relevant to Health Maintenance Results * (ABNORMAL) Lipid Panel - LDLD If Trig High (01/23/2020 11:11 AM CDT) Cholesterol 205(H) 0 - 199 mg/dL 01/23/2020 12:10 PM T [facility] Triglyceride 197(H) <=149 mg/dL 01/23/2020 12:10 PM CDT [facility] HDL Cholesterol 37(L) >=40 mg/dL 0 12:10 PM T [facility] LDL, Calculated 129 <130 mg/dL 0 12:10 PM T [facility] Non HDL Chol, Calculated 168 mg/dL 01/23/2020 12:10 PM T [facility] Cholesterol/HDL Ratio 5.5 01/23/2020 12:10 PM [facility] Hours Fasting 12 01/23/2020 12:10 PM T [facility] Blood Venipuncture / Unknown 01/23/2020 11:11 AM CDT 01/23/2020 11:11 AM CDT Felipa Shrestha MD [facility] [address] [place] [address], [facility] [phone] * (ABNORMAL) Hemoglobin A1C Glycosylated (01/23/2020 11:11 AM CDT) Hemoglobin A1C 6.1(H) <=5.6 % 01/23/2020 7:12 PM [facility]T [facility] Blood Venipuncture / Unknown 01/23/2020 11:11 AM CDT 01/23/2020 11:11 AM CDT Narrative [facility] - 01/23/2020 7:12 PM CDT For patients not previously diagnosed with diabetes: 5.7-6.4%: Increased risk for diabetes 6.5% and greater: Diagnostic for diabetes For patients diagnosed with diabetes: <8.0%: Goal of therapy for ages 18-75 Clinicians may recommend a higher or lower goal for specific individuals. Felipa Shrestha MD [facility] [address] [address], [facility] [phone] from Last 3 Months or Most Recently Relevant to Health Maintenance Care Teams Labor Supervisor Relationship Specialty Start Date End Date Felipa Shrestha MD [address] [place] [address] PCP - General Family Practice 08/26/18
--- OUTSIDE RECORDS SUMMARY | 2023-10-06 06:36 | XMS_ITS | Clinical Summary ---
Author Name Unknown Organization [facility] Address [place], [place] [address] Care Team Providers Care Brusher Warp Name Role Phone Violet Gilliam MD Primary Care Provider + Allergies Active Allergy Reactions Criticality Noted Date Comments Black Pepper Other - Describe In Comment Field Medium 06/02/2016 Triggers mouth sores and colon irritation Chicken Derived Other - Describe In Comment Field High 06/02/2016 [place]ayres and red meat trigger seizures Dysart And Derivatives Other - Describe In Comment Field High 06/02/2016 Triggers seizures. Diazepam *Unknown - Follow up needed,*Unknown 10/12/2015 Fentanyl *Unknown - Follow up needed,*Unknown 10/12/2015 Garlic Other - Describe In Comment Field Medium 06/02/2016 Ulcers in mouth and irritation of colon Hydroxyzine Anaphylaxis High 10/12/2015 Iodine Anaphylaxis High 03/15/2017 Lorazepam *Unknown 03/15/2017 Morphine *Unknown - Follow up needed,*Unknown 10/12/2015 Mushroom *Unknown - Follow up needed,*Unknown 10/12/2015 Ondansetron *Unknown - Follow up needed,*Unknown 10/12/2015 Peanut *Unknown - Follow up needed 10/12/2015 Shellfish Containing Products *Unknown - Follow up needed 07/12/2013 Shellfish Derived Anaphylaxis High 03/15/2017 Medications Medication Sig Dispensed Refills Start Date End Date Status hydroCHLOROthiazi de (HCTZ) 25 mg tablet Take 1 Tablet by mouth once daily. 0 08/06/2021 Active metFORMIN (GLUCOPHAGE) 1,000 mg tablet Take 1,000 mg by mouth. 0 Active verapamil SR (CALAN SR) 240 mg extended release tablet Take 240 mg by mouth. 0 12/26/2021 Active amitriptyline (ELAVIL) 25 mg tablet Take 25 mg by mouth at bedtime. 0 12/31/2021 Active SUMAtriptan (IMITREX) 6 mg/0.5 mL crtg INJECT 0.5 ML (6 MG) SUBCUTANEOUSLY ONCE NEEDED. MAY REPEAT IN 2 HOURS. MAX 2 DOSES A DAY. 0 11/08/2021 Active promethazine (PHENERGAN) 25 mg tablet Take 25 mg by mouth. 0 Acti ve frovatriptan (FROVA) 2.5 mg tab Take 2.5 mg by mouth. 0 01/05/2022 Active predniSONE (DELTASONE) 10 mg tabletIndications :Ulcerative colitis without complications, unspecified location (HC) take 4 tablets by oral route once daily for 2 weeks, 3 tablets per day for 1 week, 2 tablets per day for 1 week, 1 tablet per day for 1 week 98 Tablet 0 03/13/2022 Active amitriptyline (ELAVIL) 25 mg tablet Take 1 Tablet by mouth at bedtime. 0 05/06/2021 Active metFORMIN (GLUCOPHAGE XR) 500 mg Extended-Release tablet Take 1,000 mg by mouth once daily. 0 03/01/2022 Active SUMAtriptan (IMITREX) 6 mg/0.5 mL crtg Inject 6 mg subcutaneous. 0 10/26/2021 Active balsalazide (COLAZAL) 750 mg capsuleIndication s:Ulcerative colitis without complications, unspecified location (HC) Take 3 Capsules (2,250 mg) by mouth 3 times daily. 280 Capsule 11 12/30/2022 Active Active Problems Problem Noted Date Diagnosed Date Prolonged QT interval 01/25/2020 Current moderate episode of major depressive disorder without prior episode 09/21/2018 SALLY (generalized anxiety disorder) 09/21/2018 Chronic ulcerative colitis 09/21/2018 Secondary seizure disorder 09/21/2018 Overview: From hemiplegic migraines Anxiety 03/15/2017 Controlled type 2 diabetes m kevin without complication, without long-term current use of insulin 03/15/2017 Essential hypertension 03/15/2017 Hemiplegic migraine 03/15/2017 Low vitamin D level 03/15/2017 Encounters Date Type Department Care Team Description 08/24/2023 2:45 PM [facility] Telemedicine [facility] [address] [place] [address] Maggie Jane PsyD, LP Individual Therapy 08/24/2023 Travel 08/10/2023 2:45 PM [facility] SWALLOWER Telemedicine [facility] [address] [place] [address] Maggie Jane PsyD, LP Individual Therapy 08/10/2023 Travel 07/19/2023 1:45 PM SW[facility] SWALLOWER Telemedicine [facility] [address] [place] [address] Maggie Jane PsyD, LP Individual Therapy 07/18/2023 Travel from Last 3 Months Social History Tobacco Use Types Packs/Day Years Used Date Smoking Tobacco: Never Smokeless Tobacco: Never Tobacco Cessation:Counseling Given: Yes Alcohol Use Standard Drinks/Week Comments Yes 2 (1 standard drink = 0.6 oz pur e alcohol) PHQ-2 Answer Date Recorded PHQ-2 TOTAL SCORE 3 08/24/2023 Social Connections Answer Date Recorded Frequency of Communication with Friends and Fami ly Not on file 12/14/2021 Sex and Gender Information Value Date Recorded Sex Assigned at Not on file Gender Identity Not on file Sexual Orientation Not on file Obstetrics History Last Filed [...] 04/20/2022 10:08 AM CDT Plan of Treatment Upcoming Encounters Date Type Department Care Team (Late st Contact Info) Description 10/19/2023 11:15 AM SWORD SWALLOWER Telemedicine [facility] [address] [place] [address] Maggie Jane, PsyD, LP [address] [facility] [address] [place] [address] 10/25/2023 1:00 PM SWORD SWALLOWER Telemedicine [facility] [address] [place] [address] Maggie Jane, Kimo, LP [address] [place] [address] 11/09/2023 1:30 PM CDT Telemedicine [facility] [address] [place] [id number] Juno Salina Melissa, [facility] [address] [place], [place] [id number] Health Maintenance Due Date Last Done Comments Pneumococcal series for age 6-64 (1 of 2 - PCV) 11/14/1975 Tdap 1980 HIV for age 15-65 1984 Hepatitis C screening for ag e 18-79 11/14/1987 Tetanus booster 1989 Pap test for age 21-65 1990 Colonoscopy through age 75 2014 Lipids for age 45-75 2014 Mammogram for age 45-75 2014 Zoster (shingles) series for age 50+ (1 of 2) 11/14/2019 BMI (ht and wt on same day) for age 18+ 04/20/2023 04/20/2022 COVID-19 vaccine series ( season) 2023 05/13/2021, 04/18/2021 Influenza for age 50-64 04/23/2023 Depression screening for age 12+ 08/24/2024 08/24/2023, 08/10/2023, 07/19/2023, Additional history exists Care Teams Brusher Warp Relationship Specialty Start Date End Date Violet Gilliam MD [address] [place] [address] PCP - General Family Practice 03/13/22
== END 2023-10-05 10:11 | disposition home or self-care (01) ==
LOC: NFLDREF 10-06 06:22
PROVIDERS: PCP Family Medicine; Referring Provider Family Medicine; Visit Provider Family Medicine
DX: Z00.00 Encounter for general adult medical examination without abnormal findings (principal); E53.8 Deficiency of other specified B group vitamins; E55.9 Vitamin D deficiency, unspecified; E78.5 Hyperlipidemia, unspecified; I10 Essential (primary) hypertension; R53.83 Other fatigue; E66.9 Obesity, unspecified
CPT/HCPCS: 80053; 80061; 82306; 82607

== ENCOUNTER 2023-12-02 13:55 | Emergency (ER) | payer MEDICARE, SELFPAY ==
[2023-12-02 14:08] VITALS: BP 175/110; PULSE 84; RESP 16; TEMP 36.9; O2SAT 99; BMI 39.2
--- NOTE | 2023-12-02 15:04 | CT_ITS ---
Patient: BLAYNE BROWN Facility:?[facility] Patient ID:?[id number] Site Patient ID:?[id number]. Site :?[id number] Study:?CT-Head WITHOUT-12/02/2023 4:15:59 PM Ordering Physician:RAÚL Final Report: Indication: Dizziness. Technique: Noncontrast CT of the head with multiplanar reconstruction utilizing bone and soft tissue algorithms. Comparison: CT head dated 12/22/2022. Findings: No acute intracranial hemorrhage. The seymour-white matter interface is preserved. The ventricles are normal in size. The skull base and calvarium are within normal limits. The orbits are unremarkable. There is mild diffuse mucosal thickening within ethmoid and partially imaged maxillary sinuses with maxillary sinus wall hyperostosis. Impression: 1. No acute intracranial abnormality. 2. Findings as above consistent with sequela of chronic sinusitis. Please note that all CT scans at this facility use dose modulation, iterative reconstruction, and/or weight-based dosing when appropriate to reduce radiation dose to as low as reasonably achievable. Dictated by Cricket Méndez MD @ 12/02/2023 4:25:09 PM Signed by:?Cricket Méndez MD @12/02/2023 4:25:09 PM (Electronic Signature)
[2023-12-02] MEDS: LORazepam 2 MG/ML inj 4 MG IM (15:10)
[2023-12-02 15:15] VITALS: BP 130/72; PULSE 75; RESP 24; O2SAT 97
[2023-12-02] MEDS: LACTATED RINGERS 1000 ML 1,000 ML IV (15:25)
[2023-12-02] MEDS: METOCLOPRAMIDE HCL 5 MG/ML INJ 10 MG IVP (15:25)
[2023-12-02] MEDS: diphenhydrAMINE 50 MG/ML inj 25 MG IVP (15:28)
[2023-12-02 15:30] VITALS: BP 144/76; PULSE 75; RESP 19; O2SAT 95
[2023-12-02 15:37] LABS: Basophils Absolute Auto 0.03 K/uL (0.00-0.30); Basophils Percent Auto 0.4 % (0.0-3.0); Eosinophils Absolute Auto 0.18 K/uL (0.00-0.50); Eosinophils Percent Auto 2.3 % (0.0-7.0); Hematocrit 42.1 % (33.0-51.0); Hemoglobin* 13.4 gm/dL (12.0-16.0); Immature Granulocytes Abs Auto 0.01 K/uL (0.00-0.30); Immature Granulocytes Pct Auto 0.1 %; Lymphocytes Absolute Auto 2.59 K/uL (0.90-2.90); Lymphocytes Percent Auto 32.8 % (20-44); Mean Corpuscular HGB Conc 32 gm/dL (32-36); Mean Corpuscular Hemoglobin 28 pg (26-34); Mean Corpuscular Volume 88 fL (80-100); Monocytes Percent Auto 10.8 % (0.0-11.0); Neutrophils Absolute Auto 4.23 K/uL (1.7-7.0); Neutrophils Percent Auto 53.6 % (42.0-72.0); Platelet Count* 329 K/uL (140-440); RDW Coefficient of Variation % 12.7 % (11.5-15.5); Red Blood Count 4.79 m/uL (4.00-5.20); White Blood Count* 7.89 K/uL (4.50-11.00)
--- NOTE | 2023-12-02 15:38 | ED_ITS ---
HPI - General Adult General Date Seen: 12/02/23 Chief complaint: Dizziness/Vertigo Stated complaint: Dizzy, arms/lips numb Time Seen by Provider: 12/02/23 14:48 Source: patient Mode of arrival: ambulatory Limitations: no limitations History of Present Illness HPI narrative: Patient is a 53-year-old female with a history of hemiplegic migraine presenting to the emergency department for dizziness and numbness to her arms and lips. States the symptoms have been going on for 2 weeks but have been gradually getting worse. States in the past she would have hemiplegic migraines and will have numbness to her right arm that would then resolve but this is to both arms and has been going on for an extended period of time. She is also noticing numbness to her lips. States she thinks she is having a continued migraine because she is having some neck pain and is having a whooshing sensation in her ears which have been signs of migraines for her in the past. Does not currently have a headache. Does states symptoms seem to be better when she is up and moving around. Denies chest pain, shortness of breath, abdominal pain, diarrhea, constipation, fevers, chills, weakness. Does state feel have episodes where she will feel like she has tunnel vision. Related Data Home Medications Medication Instructions Recorded Confirmed dexamethasone 1 mg tablet 1 mg PO .Daily as needed PRN 06/24/22 10/08/23 frovatriptan 2.5 mg tablet 2.5 mg PO PRN 06/24/22 10/08/23 ketorolac 10 mg tablet 10 mg PO ONCE 06/24/22 10/08/23 prednisone 10 mg tablet 10 mg PO .as needed PRN 06/24/22 10/08/23 promethazine 25 mg tablet 25 mg PO PRN 06/24/22 10/08/23 sumatriptan succinate 6 mg/0.5 mL mg subcut .As Needed PRN 06/24/22 10/08/23 subcutaneous solution verapamil 240 mg tablet,extended 240 mg PO DAILY 06/24/22 10/08/23 release Previous Rx's Medication Instructions Recorded cholecalciferol (vitamin D3) 25 25 mcg PO QDAY #120 caps 10/16/22 mcg (1,000 unit) capsule amitriptyline 25 mg tablet 25 mg PO QPM #90 tabs 04/08/23 escitalopram oxalate 5 mg tablet 5 mg PO QDAY #90 tabs 10/08/23 (Lexapro) hydrochlorothiazide 25 mg tablet 25 mg PO DAILY #90 tabs 10/08/23 metformin 500 mg tablet,extended 1,000 mg (2 x 500 mg) PO BID #360 10/08/23 release 24 hr tabs Allergies Allergy/AdvReac Type Severity Reaction Status Date / Time fentanyl Allergy Severe Anaphylaxis Verified 10/08/23 09:58 morphine Allergy Intermediate edema Verified 10/08/23 09:58 diazepam Allergy Unknown low Verified 10/08/23 09:58 respirations hydroxyzine Allergy Unknown low Verified 10/08/23 09:58 respirations iodine Allergy Unknown Anaphylaxis Verified 10/08/23 09:58 ondansetron Allergy Unknown Nausea Verified 10/08/23 09:58 Shellfish Allergy Allergy Unknown Anaphylaxis Uncoded 10/08/23 09:58 Review of Systems Status of ROS: Reports: 10 or more systems reviewed and unremarkable except as noted in History and below [facility] Medical History Atypical chest pain (~06/2022) ?R07.89 - Other chest pain (ICD-10) Vitamin D deficiency ?E55.9 - Vitamin D deficiency, unspecified (ICD-10) Ulcerative colitis ?K51.90 - Ulcerative colitis, unspecified, without complications (ICD-10) Prolonged QT interval ?R94.31 - Abnormal electrocardiogram [ECG] [EKG] (ICD-10) Prediabetes ?R73.03 - Prediabetes (ICD-10) Dizziness ?R42 - Dizziness and giddiness (ICD-10) PCOS (polycystic ovarian syndrome) ?E28.2 - Polycystic ovarian syndrome (ICD-10) Surgical History History of laparoscopy (1984) ?Z98.890 - Other specified postprocedural states (ICD-10) History of hysterectomy for benign disease (1996) ?Z90.710 - Acquired absence of both cervix and uterus (ICD-10) History of cholecystectomy (1997) ?Z90.49 - Acquired absence of other specified parts of digestive tract (ICD- 10) History of appendectomy (1996) ?Z90.49 - Acquired absence of other specified parts of digestive tract (ICD- 10) Family History Mother Bipolar disorder Father Diabetes Colon cancer, Onset Age: 75 Prostate cancer Social History Narrative: , 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, 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, 2 kids, Walks 2-year-old [employer] mi every day nonsmoker, rarely consumes alcohol What is your current living situation?: I presently have a place to live Problems where you live: no known problems In the past 12 months, utilities in danger of being shut off: no In past 12 months, lack of transportation kept you from medical appts, meetings, work, or getting things needed for daily living: no In the past 12 mos, have been you worried that your food would run out before you had money to buy more?: never true In the past 12 mos, the food you bought just didn't last and you didn't have money to buy more?: never true Smoking Status: Former smoker Do you use any of these nicotine containing products: None How often do you have a drink containing alcohol: monthly or less AUDIT-C Alcohol total score: 1 Non-prescribed substance use: denies use Caffeine: Yes How often does anyone, including family, friends and others, physically hurt you : never How often does anyone, including family, friends and others, insult or talk down to you: never How often does anyone, including family, friends and others, threaten you with harm: never How often does anyone, including family, friends and others, scream or curse at you: never Little interest or pleasure in doing things: not at all Feeling down, depressed, or hopeless: not at all Are you using contraception or practicing any form of control: No Exam Narrative: Exam Narrative: Const: Well-nourished, Well-developed, in mild distress Eyes: PERRL, no conjunctival injection, and symmetrical lids HENT: Atraumatic external nose and ears. Moist mucous membranes. Neck: Symmetric, trachea midline, No thyromegaly. CVS: RRR, No murmurs or gallops. Peripheral pulses 2+ and equal in all extremities RESP: Unlabored respiratory effort. Clear to auscultation bilaterally. GI: Nontender/Nondistended, No rebound or guarding. MSK:Extremities w/o deformity, Normal Active ROM Skin: Warm, Dry. No rashes or lesions. Neuro: Normal Muscle tone, No focal neurological deficits. Psych: Awake, Alert, & Oriented x3. Appropriate mood and affect. Const: Vital Signs, click to edit/add: Vital Signs - 24 hr 12/02/23 14:08 12/02/23 16:06 Temperature 98.4 F Pulse Rate 79 Pulse Rate [Pulse Oximeter] 84 Respiratory Rate 16 Blood Pressure [Ri ght Upper Arm] 175/110 H Pulse Oximetry 99 92 Oxygen Delivery Me thod Room Air Course Vital Signs Vital signs: Initial Vital Signs Temperature 98.4 F 12/02/23 14:08 Temperature Source Temporal Artery Scan 12/02/23 14:08 Pulse Rate 84 12/02/23 14:08 Respiratory Rate 16 12/02/23 14:08 Blood Pressure 175/110 H 12/02/23 14:08 Blood Pressure Mean 131 H 12/02/23 14:08 Pulse Oximetry 99 12/02/23 14:08 Oxygen Delivery Method Room Air 12/02/23 14:08 Vital Signs Temperature 98.4 F 12/02/23 14:08 Pulse Rate 84 12/02/23 14:08 Respiratory Rate 16 12/02/23 14:08 Blood Pressure 175/110 H 12/02/23 14:08 Pulse Oximetry 99 12/02/23 14:08 Oxygen Delivery Method Room Air 12/02/23 14:08 Temperature 98.4 F 12/02/23 14:08 Pulse Rate 79 12/02/23 16:06 Respiratory Rate 16 12/02/23 14:08 Blood Pressure 175/110 H 12/02/23 14:08 Pulse Oximetry 92 12/02/23 16:06 Oxygen Delivery Method Room Air 12/02/23 14:08 Medications Administered Medications: Discontinued Medications Generic Name Dose Route Start Last Admin Trade Name Freq PRN Reason Stop Dose Admin Diphenhydramine HCl 25 mg 12/02/23 15:04 12/02/23 15:28 Diphenhydramine 50 Mg/Ml Inj IVP 12/02/23 15:05 25 mg ONCE ONE Administration Lactated Ringer's 1,000 mls @ 1,000 mls/hr 12/02/23 15:04 12/02/23 15:25 Lactated Ringers 1000 Ml IV 12/02/23 16:03 1,000 mls/hr .Q1H ONE Administration Lorazepam 4 mg 12/02/23 15:46 12/02/23 15:10 Lorazepam 2 Mg/Ml Inj IM 12/02/23 15:47 4 mg ONCE ONE Administration Metoclopramide HCl 10 mg 12/02/23 15:04 12/02/23 15:25 Metoclopramide Hcl 5 Mg/Ml Inj IVP 12/02/23 15:05 10 mg ONCE ONE Administration Medical Decision Making MDM Narrative Medical decision making narrative: Patient is a 53-year-old female presenting for vague neurological symptoms. I did consider as stroke considering her symptoms and attempted hints exam. She was unable to tolerate the head impulse test but there was no concerning abnormalities with nystagmus or test of skew. I do not note any other acute abnormalities on her exam. I will order a CT scan of the head just to look for any abnormalities but this seems very unlikely to be a stroke and even if it was there is not much do considering the length of the symptoms. The lip numbness does make me consider hypocalcemia or other electrolyte abnormalities any BMP was ordered. Also ordered COVID/flu/RSV, troponin, EKG, CBC. I will treat her with a migraine cocktail including Benadryl, lactated Ringer's, Reglan. After I initially evaluated the patient I was called into the room because the patient was having symptoms concerning for a seizure. One went in there she was having full extension of her right arm and was bending her body toward her left side. I than did multiple sternal rubs and she did not react to these all. Due that I was concerned she was actually having a seizure so I ordered 4 mg of Ativan IM. This was given and symptoms resolved. She does seem to be postictal. I went to go check on her 15 to 20 minutes later and she was awakened feeling back to normal. She states those symptoms she was having were her hemiplegic migraines and was a relatively mild 1. She states remembers everything that was happening and was trying to tell us what was going on but was unable to speak. She states she feels back to normal at this time. I was able to find a Neuro note in the scanned documents describing her hemiplegic migraines and it does sound like this was normal for her. Do that I do not believe this was a seizure. Her head CT showed no concerning findings. Her lab work all looks normal. She is otherwise doing well and I think at this point she is safe for discharge. She is agreeable to this plan. Lab Data Labs: Lab Results 12/02/23 12/02/23 Range/Units 15:25 15:30 WBC 7.89 (4.50-11.00) K/uL RBC 4.79 (4.00-5.20) m/uL Hgb 13.4 (12.0-16.0) gm/dL Hct 42.1 (33.0-51.0) % MCV 88 (80-100) fL MCH 28 (26-34) pg MCHC 32 (32-36) gm/dL RDW Coeff of Tiny 12.7 (11.5-15.5) % Plt Count 329 (140-440) K/uL Neut % (Auto) 53.6 (42.0-72.0) % Lymph % (Auto) 32.8 (20-44) % Swisher % (Auto) 10.8 (0.0-11.0) % Eos % (Auto) 2.3 (0.0-7.0) % Baso % (Auto) 0.4 (0.0-3.0) % Neut # (Auto) 4.23 (1.7-7.0) K/uL Lymph # (Auto) 2.59 (0.90-2.90) K/uL Swisher # (Auto) 0.90 (0.00-0.90) K/UL Eos # (Auto) 0.18 (0.00-0.50) K/uL Baso # (Auto) 0.03 (0.00-0.30) K/uL Abs Immat Gran (auto) 0.01 (0.00-0.30) K/uL Imm/Tot Granulo (auto) 0.1 % Sodium 139 (135-149) mmol/L Potassium 3.9 (3.6-5.1) mmol/L Chloride 108 (96-114) mmol/L Carbon Dioxide 25 (20-32) mmol/L Anion Gap 6 L (7-15) mEq/L BUN 19 (7-30) mg/dL Creatinine 0.8 (0.5-1.5) mg/dL Estimated Creat Clear 78.18 Estimated GFR 88 ml/min Glucose 118 H (60-115) mg/dL Calcium 9.2 (8.4-10.6) mg/dL Magnesium 2.3 (1.5-2.6) mg/dL Troponin I < 0.01 L (0.01-0.04) ng/mL SARS-CoV-2 (PCR) Negative SARS-CoV-2 (Negative) Influenza Type A (PCR) Negative PCR FLU A (Negative) Influenza Type B (PCR) Negative PCR FLU B (Negative) RSV (PCR) Negative PCR RSV (Negative) Imaging Data CT scan - head: Radiologist's impression: 1. No acute intracranial abnormality. 2. Findings as above consistent with sequela of chronic sinusitis. Please note that all CT scans at this facility use dose modulation, iterative reconstruction, and/or weight-based dosing when appropriate to reduce radiation dose to as low as reasonably achievable. Dictated by Cricket Méndez MD @ 12/02/2023 4:25:09 PM ECG Data Attestation: I personally reviewed and interpreted this ECG as follows: Prior ECG tracings: available for review Interpretation: Normal sinus rhythm with rate of 82 beats per minute, normal intervals, normal axis, no ST or T-wave abnormalities. Appears similar previous EKG on file Discharge Plan Discharge Clinical Impression: Hemiplegic migraine Patient Disposition: Home, Self-Care Condition: Improved Instructions: Migraine Headache (ED) Additional Instructions: Continue take your home migraine medications. Return to emergency department for new or worsening symptoms. Prescriptions: No Action verapamil 240 mg tablet extended release 240 mg PO DAILY frovatriptan 2.5 mg tablet 2.5 mg PO PRN promethazine 25 mg tablet 25 mg PO PRN dexamethasone 1 mg tablet 1 mg PO .Daily as needed PRN ketorolac 10 mg tablet 10 mg PO ONCE prednisone 10 mg tablet 10 mg PO .as needed PRN sumatriptan succinate 6 mg/0.5 mL solution subcut .As Needed PRN Rx Instructions: INJECT 6 MG SC AT ONSET OF HEADACHE, MAY REPEAT ONCE IN 1 HR PRN, MAX 2 INJECTIONS/24 HRS cholecalciferol (vitamin D3) 25 mcg (1,000 unit) capsule 25 mcg PO QDAY Qty: 120 3RF metformin 500 mg tablet extended release 24 hr 1,000 mg PO BID Qty: 360 1RF hydrochlorothiazide 25 mg tablet 25 mg PO DAILY Qty: 90 3RF escitalopram oxalate [Lexapro] 5 mg tablet 5 mg PO QDAY Qty: 90 3RF amitriptyline 25 mg tablet 25 mg PO QPM Qty: 90 0RF Follow Up/Referrals: Violet Gilliam MD [Primary Care Provider] - Stand Alone Forms: [place] Info Instructions
[2023-12-02 15:40] LABS: Slide Review Reflex No
--- OUTSIDE RECORDS SUMMARY | 2023-12-02 15:42 | XMS_ITS | Clinical Summary ---
Author Name Unknown Organization [facility] Address [address] [place] [address] Care Team Providers Care Pantograph Ii Engraver Name Role Phone Felipa Shrestha MD Primary Care Provider [phone] Source Comments You are receiving this document as you are listed as the primary care provider,follow-up provider, or the patient has been referred to you for consultation.This is in compliance with the Medicare and[facility] EHR Incentive Program,which states Providers who transition their patient to another setting of careor provider of care or refers their patient to another provider of care shouldprovide summary care record for each transition of care or referral. [employer] Allergies Active Allergy Reactions Criticality Noted Date [...] 1969 Hep C Screening (Preventive Services) 1969 Medicare Annual Wellness Visit 1969 Mammogram 1969 HIV Screening (Preventive Services) 1985 DTaP/Tdap/Td (1 - Tdap) 1988 HepB (1) 1988 Zoster/Shingles (1 of 2) 11/14/2019 Prediabetes: [...] - 199 mg/dL 01/23/2020 12:10 PM T [facility] Triglyceride 197(H) <=149 mg/dL 01/23/2020 12:10 PM CDT [facility] HDL Cholesterol 37(L) >=40 mg/dL 0 12:10 PM T [facility] LDL, Calculated 129 <130 mg/dL 0 12:10 PM T [facility] Non HDL Chol, Calculated 168 mg/dL 01/23/2020 12:10 PM T [facility] Cholesterol/HDL Ratio 5.5 01/23/2020 12:10 PM [facility] Hours Fasting 12 01/23/2020 12:10 PM T [facility] Blood Venipuncture / Unknown 01/23/2020 11:11 AM CDT 01/23/2020 11:11 AM CDT Felipa Shrestha MD LAB_1 [facility] [address] [place] [address], [facility] [phone] * (ABNORMAL) Hemoglobin A1C Glycosylated (01/23/2020 11:11 AM CDT) Hemoglobin A1C 6.1(H) <=5.6 % 01/23/2020 7:12 PM CDT [employer] [facility] [facility] Blood Venipuncture / Unknown 01/23/2020 11:11 AM CDT 01/23/2020 11:11 AM CDT Narrative [facility] - 01/23/2020 7:12 PM CDT For patients not previously diagnosed with diabetes: 5.7-6.4%: Increased risk for diabetes 6.5% and greater: Diagnostic for diabetes For patients diagnosed with diabetes: <8.0%: Goal of therapy for ages 18-75 Clinicians may recommend a higher or lower goal for specific individuals. Felipa Shrestha MD LAB_1 [facility] [address] [address], [facility] [phone] from Last 3 Months or Most Recently Relevant to Health Maintenance Care Teams Pantograph Ii Engraver Relationship Specialty Start Date End Date Felipa Shrestha MD [address] [place] [address] PCP - General Family Practice 08/26/18
--- OUTSIDE RECORDS SUMMARY | 2023-12-02 15:42 | XMS_ITS | Clinical Summary ---
Author Name Unknown Organization [employer] Address [place], [place] [address] Care Team Providers Care Technology Manager Name Role Phone Violet Gilliam MD Primary Care Provider + Allergies Active Allergy Reactions Criticality Noted Date Comments Black Pepper Other - Describe In Comment Field Medium 06/02/2016 Triggers mouth sores and colon irritation Chicken Derived Other - Describe In Comment Field High 06/02/2016 Edwards and red meat trigger seizures Williamson And Derivatives Other - Describe In Comment [...] Take 1 Tablet by mouth once daily. 08/06/2021 Active metFORMIN (GLUCOPHAGE) 1,000 mg tablet Take 1,000 mg by mouth. Active verapamil SR (CALAN SR) 240 mg extended release tablet Take 240 mg by mouth. 12/26/2021 Active amitriptyline (ELAVIL) 25 mg tablet Take 25 mg by mouth at bedtime. 12/31/2021 Active SUMAtriptan (IMITREX) 6 mg/0.5 mL crtg INJECT 0.5 ML (6 MG) SUBCUTANEOUSLY ONCE NEEDED. MAY REPEAT IN 2 HOURS. MAX 2 DOSES A DAY. 11/08/2021 Active promethazine (PHENERGAN) 25 mg tablet Take 25 mg by mouth. Acti ve frovatriptan (FROVA) 2.5 mg tab Take 2.5 mg by mouth. 01/05/2022 Active predniSONE (DELTASONE) 10 mg tabletIndications :Ulcerative colitis without complications, unspecified location (HC) take 4 tablets by oral route once daily for 2 weeks, 3 tablets per day for 1 week, 2 tablets per day for 1 week, 1 tablet per day for 1 week 98 Tablet 03/13/2022 Active amitriptyline (ELAVIL) 25 mg tablet Take 1 Tablet by mouth at bedtime. 05/06/2021 Active metFORMIN (GLUCOPHAGE XR) 500 mg Extended-Release tablet Take 1,000 mg by mouth once daily. 03/01/2022 Active SUMAtriptan (IMITREX) 6 mg/0.5 mL crtg Inject 6 mg subcutaneous. 10/26/2021 Active balsalazide (COLAZAL) 750 mg capsuleIndication [...] Anxiety 03/15/2017 Controlled type 2 diabetes m ellitus without complication, without long-term current use of insulin 03/15/2017 Essential hypertension 03/15/2017 Hemiplegic migraine 03/15/2017 Low vitamin D level 03/15/2017 Encounters Date Type Department Care Team Description 11/09/2023 1:30 PM CDT Telemedicine [facility] [address] [place] [address] Salina Fraire [facility] Visit; Telehealth 11/09/2023 Travel 10/25/2023 1:00 PM PROMOTIONS OFFICER Telemedicine [facility] [address] [place] [address] [address] [place] [address] Maggie Jane PsyD, JONO Individual Therapy 10/19/2023 11:15 AM PROMOTIONS OFFICER Telemedicine [address] [facility] [address] [place] [address] Maggie Jane PsyD, JONO Individual Therapy 10/19/2023 Travel from Last 3 Months Social History Tobacco Use Types Packs/Day Years Used Date Smoking Tobacco: Never Smokeless Tobacco: Never Tobacco Cessation:Counseling Given: Yes Alcohol Use Standard Drinks/Week Comments Yes 2 (1 standard drink = 0.6 oz pur e alcohol) PHQ-2 Answer Date Recorded PHQ-2 TOTAL SCORE 0 10/19/2023 Social Connections Answer Date Recorded Frequency of [...] Care Team (Late st Contact Info) Description 02/02/2024 8:30 AM CDT Telemedicine [address] [facility] [address] [place] [address] Maggie Jane PsyD, LP [address] [place] [address] 02/22/2024 2:00 PM CDT Telemedicine [facility] [address] [place] [address] Maggie aJne PsyD, LP [address] [place] [address] Health Maintenance Due Date Last Done Comments [...] age 18+ 04/20/2023 04/20/2022 COVID-19 vaccine series (2022- season) 2023 05/13/2021, 04/18/2021 Influenza for age 50-64 04/23/2024 Depression screening for age 12+ 10/19/2024 10/19/2023, 08/24/2023, 08/10/2023, Additional history exists Care Teams Technology Manager Relationship Specialty Start Date End Date Violet Gilliam MD [address] [place] [address] PCP - General Family Practice 03/13/22
[2023-12-02 15:45] VITALS: BP 141/82; PULSE 81; RESP 15; O2SAT 94
[2023-12-02 15:57] LABS: Chloride* 108 mmol/L (96-114); Potassium* 3.9 mmol/L (3.6-5.1); Sodium* 139 mmol/L (135-149)
[2023-12-02 16:00] LABS: Anion Gap 6 mEq/L (7-15); Blood Urea Nitrogen* 19 mg/dL (7-30); Carbon Dioxide* 25 mmol/L (20-32); Creatinine* 0.8 mg/dL (0.5-1.5); Est. Creatinine Clearance* 78.18; Estimated Glomerular Filt Rate 88 ml/min
[2023-12-02 16:01] LABS: Calcium* 9.2 mg/dL (8.4-10.6); Glucose* 118 mg/dL (60-115); Magnesium* 2.3 mg/dL (1.5-2.6)
[2023-12-02 16:06] VITALS: PULSE 79; O2SAT 92
[2023-12-02 16:13] LABS: PCR FLU A Negative PCR FLU A (Negative); PCR FLU B Negative PCR FLU B (Negative); PCR RSV Negative PCR RSV (Negative); SARS PCR* Negative SARS-CoV-2 (Negative)
[2023-12-02 16:18] LABS: Troponin I* < 0.01 ng/mL (0.01-0.04)
== END 2023-12-02 16:54 | disposition home or self-care (01) ==
PROVIDERS: Emergency Provider Student in an Organized Health Care Education/Training Program; PCP Family Medicine
DX: G43.409 Hemiplegic migraine, not intractable, without status migrainosus (principal)
CPT/HCPCS: 36415; 70450; 80048; 83735; 84484; 85025; 87631; 93005; 96372; 96374; 96375; 99283; 99284; 99285; J1200; J2060; J2765; J7120

== ENCOUNTER 2024-01-18 09:31 | Outpatient (CLI) | payer MEDICARE, SELFPAY ==
--- OUTSIDE RECORDS SUMMARY | 2024-01-18 09:35 | XMS_ITS | Clinical Summary ---
Author Organization [facility] Address [address] [place] [address] Care Team Providers Care Operations Assistant Name Role Phone Felipa Shrestha MD Primary Care Provider [phone] Source Comments You are receiving this document as you are listed as the primary care provider,follow-up provider, or the patient has been referred to you for consultation.This is in compliance with the Medicare and[facility] Hospitalca[facility] EHR Incentive Program,which states Providers who transition their patient to another setting of careor provider of care or refers their patient to another provider of care shouldprovide summary care record for each transition of care or referral. [employer] Allergies Active Allergy Reactions Criticality Noted Date [...] - 2022-2 4 season) 2023 04/18/2021 Influenza (Season Ended) 2024 Cholesterol 01/22/2025 01/23/2020, 09/21/2018 HepA Aged Out [...] - 199 mg/dL 01/23/2020 12:10 PM T [facility] Triglyceride 197(H) <=149 mg/dL 01/23/2020 12:10 PM T [facility] HDL Cholesterol 37(L) >=40 mg/dL 0 12:10 PM CDT [facility] LDL, Calculated 129 <130 mg/dL 0 12:10 PM T [facility] Non HDL Chol, Calculated 168 mg/dL 01/23/2020 12:10 PM T [facility] Cholesterol/HDL Ratio 5.5 01/23/2020 12:10 PM ED [facility] Hours Fasting 12 01/23/2020 12:10 PM T [facility] Blood Venipuncture / Unknown 01/23/2020 11:11 AM CDT 01/23/2020 11:11 AM CDT Felipa Shrestha MD LAB_1 [facility] [address] [place] [address], [facility] [phone] * (ABNORMAL) Hemoglobin A1C Glycosylated (01/23/2020 11:11 AM CDT) Hemoglobin A1C 6.1(H) <=5.6 % 01/23/2020 7:12 PM CDT [facility] Blood Venipuncture / Unknown 01/23/2020 11:11 AM CDT 01/23/2020 11:11 AM CDT Narrative [email or web address] - 01/23/2020 7:12 PM CDT For patients not previously diagnosed with diabetes: 5.7-6.4%: Increased risk for diabetes 6.5% and greater: Diagnostic for diabetes For patients diagnosed with diabetes: <8.0%: Goal of therapy for ages 18-75 Clinicians may recommend a higher or lower goal for specific individuals. Felipa Shrestha MD LAB[facility]1 [facility] [address] [address], [facility] [phone] from Last 3 Months or Most Recently Relevant to Health Maintenance Care Teams Operations Assistant Relationship Specialty Start Date End Date Felipa Shrestha MD [address] [place] [address] PCP - General Family Practice 08/26/18
--- OUTSIDE RECORDS SUMMARY | 2024-01-18 09:35 | XMS_ITS | Clinical Summary ---
Author Organization [employer] [facility] Address [place], [place] [address] Care Team Providers Care Resolution Analyst Name Role Phone Violet Gilliam MD Primary Care Provider + Allergies Active Allergy Reactions Criticality Noted Date Comments Black Pepper Other - Describe In Comment Field Medium 06/02/2016 Triggers mouth sores and colon irritation Chicken Derived Other - Describe In Comment Field High 06/02/2016 [place] and red meat trigger seizures [place] And Derivatives Other - Describe In Comment [...] Anxiety 03/15/2017 Controlled type 2 diabetes m chantellitus without complication, without long-term current use of insulin 03/15/2017 Essential hypertension 03/15/2017 Hemiplegic migraine 03/15/2017 Low vitamin D level 03/15/2017 Encounters Date Type Department Care Team Description 11/09/2023 1:30 PM CDT Telemedicine [facility] [address] [place] [address] Salina Fraire [facility] Visit; Telehealth 11/09/2023 Travel 10/25/2023 1:00 PM MANAGER DRUG SAFETY Telemedicine [facility] [address] [place] [address] Maggie Jane, Kimo, LP Individual Therapy from Last 3 Months Social History Tobacco [...] Info) Description 02/02/2024 8:30 AM CDT Telemedicine [facility] [address] [facility] [address] [place] [address] Maggie Jane, Kimo, LP [address] [facility] [facility] [address] [place] [address] 02/22/2024 2:00 PM CDT Telemedicine [facility] [address] [place] [address] Maggie Jane, PsyD, LP [address] [place] [address] Health Maintenance Due Date Last Done Comments [...] 18+ 04/20/2023 04/20/2022 COVID-19 vaccine series ( - 2022- season) 2023 05/13/2021, 04/18/2021 Influenza for age 50-64 04/23/2024 Depression screening for age 12+ 10/19/2024 10/19/2023, 08/24/2023, 08/10/2023, Additional history exists Care Teams Resolution Analyst Relationship Specialty Start Date End Date Violet Gilliam MD [address] [place] [address] PCP - General Family Practice 03/13/22
== END 2024-01-18 09:32 | disposition home or self-care (01) ==
LOC: NFLDREF 09:32
PROVIDERS: PCP Family Medicine; Visit Provider Family Medicine
DX: N30.01 Acute cystitis with hematuria (principal); B96.89 Other specified bacterial agents as the cause of diseases classified elsewhere; B96.20 Unspecified Escherichia coli [E. coli] as the cause of diseases classified elsewhere
CPT/HCPCS: 87086; 87186

== ENCOUNTER 2024-04-04 09:35 | Outpatient (CLI) | payer MEDICARE, SELFPAY ==
--- OUTSIDE RECORDS SUMMARY | 2024-04-06 12:09 | XMS_ITS | Clinical Summary ---
Author Organization [facility] Address [address], [place] [address] Care Team Providers Care Police Or Patrol Park Officer Name Role Phone Felipa Shrestha MD Primary Care Provider Source Comments You are receiving this document as you are listed as the primary care provider,follow-up provider, or the patient has been referred to you for consultation.This is in compliance with the Medicare and[facility] EHR Incentive Program,which states Providers who transition their patient to another setting of careor provider of care or refers their patient to another provider of care shouldprovide summary care record for each transition of care or referral. [facility] Allergies Active Allergy Reactions Criticality Noted Date [...] interval 01/25/2020 MORIS (obstructive sleep apnea) 11/10/2018 Overview (11/10/2018): Moderate, see scan doc 10/2018. Pre-diabetes 09/21/2018 SALLY (generalized anxiety disorder) 09/21/2018 Chronic ulcerative colitis 09/21/2018 Hemiplegic migraine 09/21/2018 Vitamin D deficiency 09/21/2018 Vitamin B12 deficiency 09/21/2018 Current moderate episode of major depressive disorder without prior episode 09/21/2018 Essential hypertension 09/21/2018 Secondary seizure disorder 09/21/2018 Overview (09/21/2018): From hemiplegic migraines Polycystic ovary syndrome 03/05/2004 Resolved Problems Problem Noted Date Diagnosed Date Resolved Date Spasm of muscle 09/21/2018 08/02/2020 Nonintractable epilepsy 09/21/201808/25 Overview (09/21/2018): From her migraines. Family History Medical History [...] 2022-2 4 season) 2023 04/18/2021 Influenza (#1) 2024 Cholesterol 01/22/2025 01/23/2020, 09/21/2018 HepA Aged [...] 0 - 199 mg/dL 01/23/2020 12:10 PM CDT [facility] Triglyceride 197(H) <=149 mg/dL 01/23/2020 12:10 PM CDT [facility] HDL Cholesterol 37(L) >=40 mg/dL 0 12:10 PM CDT [facility] LDL, Calculated 129 <130 mg/dL 0 12:10 PM T [facility] Non HDL Chol, Calculated 168 mg/dL 01/23/2020 12:10 PM T [facility] Cholesterol/HDL Ratio 5.5 01/23/2020 12:10 PM T [facility] Hours Fasting 12 01/23/2020 12:10 PM CDT [facility] Blood Venipuncture / Unknown 01/23/2020 11:11 AM CDT 01/23/2020 11:11 AM CDT Felipa Shrestha MD LAB_1 [facility] [address] [place] [address], [facility] [phone] * (ABNORMAL) Hemoglobin A1C Glycosylated (01/23/2020 11:11 AM CDT) Hemoglobin A1C 6.1(H) <=5.6 % 01/23/2020 7:12 PM CDT [facility] Blood Venipuncture / Unknown 01/23/2020 11:11 AM CDT 01/23/2020 11:11 AM CDT Narrative [facility] - 01/23/2020 7:12 PM CDT For patients not previously diagnosed with diabetes: 5.7-6.4%: Increased risk for diabetes 6.5% and greater: Diagnostic for diabetes For patients diagnosed with diabetes: <8.0%: Goal of therapy for ages 18-75 Clinicians may recommend a higher or lower goal for specific individuals. Felipa Shrestha MD LAB_1 [facility] [address] [address], [facility] [phone] from Last 3 Months or Most Recently Relevant to Health Maintenance Care Teams Police Or Patrol Park Officer Relationship Specialty Start Date End Date Felipa Shrestha MD [address] [place] [address] PCP - General Family Practice 08/26/18
--- OUTSIDE RECORDS SUMMARY | 2024-04-06 12:09 | XMS_ITS | Clinical Summary ---
Author Organization [employer] [facility] Address [place], [place] [address] Care Team Providers Care Tableau Analyst Name Role Phone Violet Gilliam MD Primary Care Provider + Allergies Active Allergy Reactions Criticality Noted Date Comments Black Pepper Other - Describe In Comment Field Medium 06/02/2016 Triggers mouth sores and colon irritation Chicken Derived Other - Describe In Comment Field High 06/02/2016 [place] and red meat trigger seizures [place] And Derivatives Other - Describe In Comment [...] Encounters Date Type Department Care Team Description 02/22/2024 2:00 PM CDT Telemedicine [facility] [place] [address] [place] [address] [address] [facility] [address] [place] [address] Maggie Jane, Kimo, LP Individual Therapy; Trmt Plan 02/22/2024 Travel from Last 3 Months Social History Tobacco Use Types Packs/Day Years Used Date Smoking Tobacco: Never Smokeless Tobacco: Never Tobacco Cessation:Counseling Given: Yes Alcohol Use Standard Drinks/Week Comments Yes 2 (1 standard drink = 0.6 oz pur e alcohol) PHQ-2 Answer Date Recorded PHQ-2 TOTAL SCORE 2 02/22/2024 Social Connections Answer Date Recorded Frequency of [...] Care Team (Late st Contact Info) Description 06/05/2024 3:00 PM CDT Telemedicine [address] [address] Maggie Jane, Kimo, LP [address] [address] 06/20/2024 2:00 PM CDT Telemedicine [address] [facility] [address] [place] [address] Maggie Jane, Kimo, LP [address] [address] 07/12/2024 1:00 PM CASH APPLICATIONS SPECIALIST Telemedicine [facility] [address] [place] [address] Maggie Jane, PsyD, LP [address] [place], [place] [id number] Health Maintenance Due Date Last Done Comments [...] 50-64 04/23/2024 Depression screening for age 12+ 02/21/2025 02/22/2024, 10/19/2023, 08/24/2023, Additional history exists Care Teams Tableau Analyst Relationship Specialty Start Date End Date Violet Gilliam MD [address] [place] [address] PCP - General Family Practice 03/13/22
== END 2024-04-04 09:36 | disposition home or self-care (01) ==
LOC: NFLDREF 04-06 12:07
PROVIDERS: PCP Family Medicine; Referring Provider Family Medicine; Visit Provider Family Medicine
DX: I10 Essential (primary) hypertension (principal); R73.03 Prediabetes; E78.5 Hyperlipidemia, unspecified
CPT/HCPCS: 80053; 80061

== ENCOUNTER 2025-02-15 07:50 | Outpatient (CLI) | payer MEDICARE, SELFPAY | END 2025-02-15 07:51 | disposition home or self-care (01) | LOC: NFLDREF 02-19 14:31 | PROVIDERS: PCP Family Medicine; Referring Provider Family Medicine; Visit Provider Family Medicine | DX: I10 Essential (primary) hypertension (principal); R73.03 Prediabetes; E55.9 Vitamin D deficiency, unspecified; E53.8 Deficiency of other specified B group vitamins; E78.5 Hyperlipidemia, unspecified | CPT/HCPCS: 80053; 80061; 82306; 82607 ==

== ENCOUNTER 2025-03-02 14:42 | Outpatient (CLI) | payer MEDICARE, SELFPAY | END 2025-03-02 14:43 | disposition home or self-care (01) | PROVIDERS: PCP Family Medicine; Visit Provider Family Medicine | DX: R07.89 Other chest pain (principal) | CPT/HCPCS: A0425; A0433 ==

== ENCOUNTER 2025-03-02 15:26 | Emergency (ER) | payer MEDICARE, SELFPAY ==
[2025-03-02] VITALS (21 sets, daily range): BP systolic 112–132; BP diastolic 69–77; PULSE 66–87; RESP 8–35; TEMP 35.4; O2SAT 95–99; BMI 46.1
--- OUTSIDE RECORDS SUMMARY | 2025-03-02 15:28 | XMS_ITS | Clinical Summary ---
Author Organization [facility] Address [address] [place] [address] Care Team Providers Care Collection Manager Name Role Phone Felipa Shrestha MD Primary Care Provider [phone] Source Comments You are receiving this document as you are listed as the primary care provider,follow-up provider, or the patient has been referred to you for consultation.This is in compliance with the Medicare andMedicaid EHR Incentive Program,which states Providers who transition their patient to another setting of careor provider of care or refers their patient to another provider of care shouldprovide summary care record for each transition of care or referral. [email or web address] Allergies Active Allergy Reactions Criticality Noted Date Comments Fentanyl 09/21/2018 Morphine 09/21/2018 Diazepam 09/21/2018 Hydroxyzine 09/21/2018 Ondansetron 09/21/2018 Medications DIAZEPAM RE Active drug not in computerIndicati ons:frovatritan 2.5 Indications: frovatritan 2.5 Active promethazine (PHENERGAN) 25 MG tabletIndication s:Hemiplegic migraine without status migrainosus, not intractable Take 1 Tablet by mouth every 6 hours as needed for Nausea. 30 Tablet 3 01/22/20 20 Active ketorolac (TORADOL) 10 MG tabletIndication s:Hemiplegic migraine without status migrainosus, not intractable Take 1 Tablet by mouth every 6 hours as needed (for migraines). 30 Tablet 2 01/22/20 20 Active dexamethasone (DECADRON) 1 MG tabletIndication s:Hemiplegic migraine without status migrainosus, not intractable 4 mg for 3 days, 2mg for 1 day, then 1mg x 1 day. 15 Tablet 3 01/22/20 20 Active Accu-Chek Mindy Plus meterIndications :Pre-diabetes Use to test daily. Use as directed. Pharmacy dispense brand based on insurance. Code R73.03 1 Each 01/24/20 20 Active lancet (ACCU-CHEK FASTCLIX) deviceIndication s:Pre-diabetes Use to test daily. Use as directed. Pharmacy dispense brand based on insurance. Code R73.03 1 Each 01/24/20 20 Active verapamil (VERELAN) 240 MG 24 hour release capsuleIndicatio ns:Hemiplegic migraine without status migrainosus, not intractable,Migr sunita with aura and without status migrainosus, not intractable Take 1 Capsule by mouth every evening. 90 Capsule 3 04/23/20 20 Active ACCU-CHEK GUIDE test stripIndications :Pre-diabetes USE TO TEST DAILY 100 Strip 3 01/30/20 Active metFORMIN XR (GLUCOPHAGE XR) 500 MG 24 hour release tabletIndication s:Pre-diabetes Take 4 Tablets by mouth daily with breakfast. 360 Tablet 02/02/20 21 Active B ComplexIndicatio ns:Hemiplegic migraine with status migrainosus, not intractable,Maria Teresa min B12 deficiency (HRC) Take one capsule 3 days a week. 60 Capsule 02/05/20 21 Active ferrous sulfate 325 (65 Fe) MGIndications:Mu scle cramping,Low ferritin level Take one tab daily with food. 90 Tablet 02/05/20 21 Active amitriptyline (ELAVIL) 25 MG tabletIndication s:Hemiplegic migraine without status migrainosus, not intractable Take 1 Tablet by mouth daily at bedtime. 90 Tablet 1 05/06/20 21 Active SUMAtriptan (IMITREX) 6 MG/0.5ML injectionIndicat ions:Hemiplegic migraine without status migrainosus, not intractable Inject 0.5 mL subcutaneously once as needed. 2 mL 11 05/06/20 21 Active hydroCHLOROthiaz katerina (ORETIC) 25 MG tabletIndication s:Essential hypertension (HRC) TAKE 1 TABLET BY MOUTH DAILY. 90 Tablet 08/06/20 21 Active SUMAtriptan (IMITREX STATDOSE REFILL) 6 MG/0.5ML injectionIndicat ions:Hemiplegic migraine without status migrainosus, not intractable Inject 0.5 mL (6 mg) subcutaneously once as needed. May repeat in 2 hours. MAX 2 doses a day. 2 mL 11 10/27/19 22 Active frovatriptan (FROVA) 2.5 MG tabletIndication s:Hemiplegic migraine without status migrainosus, not intractable Take 1 Tablet (2.5 mg) by mouth as needed (migraine). 9 Tablet 1 01/06/20 22 Active predniSONE (DELTASONE) 20 MG tabletIndication s:Hemiplegic migraine with status migrainosus, not intractable Take 1 Tablet (20 mg) by mouth daily. For 3-5 days for migraine flare. 5 Tablet 02/07/20 22 Active Active Problems Problem Noted Date Diagnosed [...] pur e alcohol) 2 servings a month Comments No Sex and Gender Information Value Date Recorded Sex Assigned at Not on file Legal Sex Female 10:34 AM HEALTH CARE / MEDICAL JOB TITLES Gender Identity Not on file Sexual Orientation [...] 1970 HIV Screening (Preventive Services) 1985 DTaP/Tdap/Td Vaccine (1 - Tdap) 1988 HepB Vaccine (1) 1988 Pneumococcal Vaccine 50+ Yrs (1 of 1 - PCV) 11/14/2019 Zoster/Shingles Vaccine (1 o f 2) 11/14/2019 Prediabetes: HGBA1C 01/22/2021 01/23/2020, 09/21/2018 COVID-19 Vaccine (2 - 2023-2 5 season) 2024 04/18/2021 Cholesterol 01/22/2025 01/23/2020, 09/21/2018 Influenza Vaccine (#1) 2025 HepA Vaccine Aged Out No longer eligi ble based on patient's age to complete this topic Hib Vaccine Aged Out No longer eligi ble based on patient's age to complete this topic IPV (Polio) Vaccine Aged Out No longe r eligible based on patient's age to complete this topic MCV4 Vaccine Aged Out No longer eligi ble based on patient's age to complete this topic Meningococcal B Vaccine Aged Out No l onger eligible based on patient's age to complete this [...] - 199 mg/dL 01/23/2020 12:10 PM CDT [facility] Triglyceride 197(H) <=149 mg/dL 01/23/2020 12:10 PM T [facility] HDL Cholesterol 37(L) >=40 mg/dL 0 12:10 PM T [facility] LDL, Calculated 129 <130 mg/dL 0 12:10 PM [facility] Non HDL Chol, Calculated 168 mg/dL 01/23/2020 12:10 PM [facility] Cholesterol/HDL Ratio 5.5 01/23/2020 12:10 PM [facility] Hours Fasting 12 01/23/2020 12:10 PM T [facility] Blood Venipuncture / Unknown 01/23/2020 11:11 AM CDT 01/23/2020 11:11 AM CDT Felipa Shrestha MD LAB_1 Final Result [facility] [address] [place] [address], [facility] [phone] * (ABNORMAL) Hemoglobin A1C Glycosylated (01/23/2020 11:11 AM CDT) Hemoglobin A1C 6.1(H) <=5.6 % 01/23/2020 7:12 PM CDT [facility] Blood Venipuncture / Unknown 01/23/2020 11:11 AM CDT 01/23/2020 11:11 AM CDT [facility] 01/23/2020 7:12 PM CDT For patients not previously diagnosed with diabetes: 5.7-6.4%: Increased risk for diabetes 6.5% and greater: Diagnostic for diabetes For patients diagnosed with diabetes: <8.0%: Goal of therapy for ages 18-75 Clinicians may recommend a higher or lower goal for specific individuals. Felipa Shrestha MD LAB_1 Final Result [facility] [address] [place] [address], [facility] [phone] from Last 3 Months or Most Recently Relevant to Health Maintenance Insurance MEDICARE MEDICARE AET Care Teams Collection Manager Relationship Specialty Start Date End Date Felipa Shrestha MD [address] [place] [address] PCP - General Family Practice 08/26/18
--- OUTSIDE RECORDS SUMMARY | 2025-03-02 15:28 | XMS_ITS | Clinical Summary ---
Author Organization 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 Garlic Other - Describe In Comment Field Medium 06/02/2016 Ulcers in mouth and irritation of colon Hydroxyzine Anaphylaxis High 10/12/2015 Iodine Anaphylaxis High 03/15/2017 Morphine *Unknown - Follow up needed,*Unknown 10/12/2015 Mushroom *Unknown - Follow up needed,*Unknown 10/12/2015 Ondansetron *Unknown - Follow up needed,*Unknown 10/12/2015 Peanut *Unknown - Follow up needed 10/12/2015 Shellfish Containing Products *Unknown - Follow up needed 07/12/2013 Shellfish Derived Anaphylaxis High 03/15/2017 Medications hydroCHLOROthia zide (HCTZ) 25 mg tablet Take 1 Tablet by mouth once daily. 08/06/20 21 Active verapamil SR (CALAN SR) 240 mg extended release tablet Take 240 mg by mouth. 12/27/19 22 Active amitriptyline (ELAVIL) 25 mg tablet Take 25 mg by mouth at bedtime. 01/01/20 22 Active SUMAtriptan (IMITREX) 6 mg/0.5 mL crtg INJECT 0.5 ML (6 MG) SUBCUTANEOUSLY ONCE NEEDED. MAY REPEAT IN 2 HOURS. MAX 2 DOSES A DAY. 03/19/20 22 Active promethazine (PHENERGAN) 25 mg tablet Take 25 mg by mouth. Active frovatriptan (FROVA) 2.5 mg tab Take 2.5 mg by mouth. 01/06/20 Active predniSONE (DELTASONE) 10 mg tabletIndicatio ns:Ulcerative colitis without complications, unspecified location (HC) take 4 tablets by oral route once daily for 2 weeks, 3 tablets per day for 1 week, 2 tablets per day for 1 week, 1 tablet per day for 1 week 98 Tablet 03/13/20 Active metFORMIN (GLUCOPHAGE XR) 500 mg Extended-Releas e tablet Take 1,000 mg by mouth once daily. 03/01/20 Active SUMAtriptan (IMITREX) 6 mg/0.5 mL crtg Inject 6 mg subcutaneous. 10/27/19 Active cholecalciferol 1,000 unit capsule Take 1,000 units by mouth once daily. 09/02/19 Active cyanocobalamin 1,000 mcg tablet Take 1 Tablet by mouth once every other day. 06/14/20 24 Active rosuvastatin 20 mg tabletIndicatio ns:Dyslipidemia Take 1 Tablet (20 mg) by mouth once daily. 90 Tablet 3 01/20/20 Active Active Problems Problem Noted Date Diagnosed Date Prolonged QT interval 01/25/2020 Current moderate episode of major depressive disorder without prior episode 09/21/2018 SALLY (generalized anxiety disorder) 09/21/2018 Chronic ulcerative colitis 09/21/2018 Secondary seizure disorder 09/21/2018 Overview (04/20/2022): From hemiplegic migraines Pre-diabetes 09/21/2018 Vitamin B12 deficiency 09/21/2018 Vitamin D deficiency 09/21/2018 Anxiety 03/15/2017 Essential hypertension 03/15/2017 Hemiplegic migraine 03/15/2017 Low vitamin D level 03/15/2017 Multiple allergies 03/15/2017 MORIS (obstructive sleep apnea) 03/15/2017 Overview (01/16/2025): Moderate, see scan doc 10/2018. Polycystic ovary syndrome 03/05/2004 Resolved Problems Problem Noted Date Diagnosed Date Resolved Date Controlled type 2 diabetes m ellitus without complication, without long-term current use of insulin 03/15/2017 01/16/2025 Encounters Date Type Department Care Team Description 02/19/2025 Telephone [facility] [address] [place] [phone] Yina Pascal MD Results (Lung portion of cor CTA) 02/09/2025 Orders Only [facility] [address] [place] [id number] Yina Pascal MD <No scans attached> 01/30/2025 9:00 AM CDT Ancillary Procedure [facility] [address] [place] [address] 01/30/2025 8:40 AM CDT Orders Only [facility] [address] [place] [address] Lab 01/30/2025 Travel 01/30/2025 Telephone [facility] [address] [place] [phone] Yina Pascal MD Allergies (Clarification of CTA med allergies) 01/26/2025 Travel 01/24/2025 Telephone [facility] [address] [place] [address] Yina Pascal MD Error-please disregard 01/24/2025 Orders Only [facility] [address] [place] [phone] Yina Pascal MD <No scans attached> 01/19/2025 9:30 AM CDT Office Visit [facility] [address] [place] [address] Yina Pascal MD Consult (REFERRED BY Provider: Elan Black MD/Referral: [id number] (Authorized)/Dept: QULKFP (QULK)/Dx: Hemiplegic migraine without status migrainosus, not intractable [G43.409]; HTN (hypertension) [I10]; Prolonged QT interval [R94.31]; Chest pain, unspecified type [R07.9] /PT states feeling good today. She occ gets sharp chest pain. She also has been having dizziness which may be from her migraines. She has sharp pain in her right arm as well occ.) 01/19/2025 Orders Only [facility] [address] [place] [address] Yina Pascal MD <No scans attached> 01/19/2025 Travel 01/17/2025 1:00 PM CDT [facility] [address] [place] [address] Maggie Jane PsyD, LP Individual Therapy; Telehealth 01/17/2025 Travel 01/16/2025 9:00 AM CDT Office Visit [facility] [address] [place] [address] Elan Black MD Referral (Cardiology/) 01/16/2025 Travel 01/12/2025 Travel 12/26/2024 8:30 AM CDT [facility] [address] [place] [address] [address] [place] [address] Maggie Jane PsyD, JONO Individual Therapy; Telehealth 12/25/2024 Travel 12/11/2024 3:00 PM CDT [facility] [address] [place] [address] [address] [place] [address] Maggie Jane PsyD, JONO Individual Therapy; Telehealth 12/11/2024 Travel from Last 3 Months Immunizations Immunization Administration Dates Next Due Tdap 10/16/2022 Zoster (Shingrix-RZV, recombinant) 10/08/2023 Family History Medical History Relation Name Comments Heart Disease Maternal Grandfather Heart Disease Maternal Grandmother CHF Heart Disease Mother Valvular heart disease Sister Relation Name Status Comments Maternal Grandfather Maternal Grandmother Mother Sister Social History Tobacco Use Types Packs/Day Years Used Date Smoking Tobacco: Former Cigarettes Smokeless Tobacco: Never Tobacco Cessation:Counseling Given: Not Answered Alcohol Use Standard Drinks/Week Comments Not Currently 0 (1 standard drink = 0.6 oz pur e alcohol) 1-2 drinks a month PHQ-2 Answer Date Recorded PHQ-2 TOTAL SCORE 1 01/17/2025 Social Connections Answer Date Recorded Do you often feel lonely or isolated from those around you? 0 01/12/2025 Financial Resource Strain Answer Date R ecorded Difficulty of Paying Living Expenses 3 01/12/2025 Difficulty of Paying Living Expenses Not on file 01/12/2025 Food Insecurity Answer Date Recorded Do you worry your food will run out before you are able to buy more? 1 01/12/2025 Transportation Needs Answer Date Record ed Does lack of transportation keep you from medica l appointments? 1 01/12/2025 Does lack of transportation keep you from work, meetings or getting things that you need? 1 01/12/2025 Housing Stability Answer Date Recorded What is your housing situation today? 1 01/12/2025 Utilities Answer Date Recorded Do you have trouble paying f or utilities (for example, heat, electricity, water, phone)? 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 Gender Identity Not on file Sexual Orientation Not on file Obstetrics History Last Filed Vital Signs Vital Sign Reading Time Taken Comments Blood Pressure 120/97 01/19/2025 9:32 AM CDT Pulse 91 01/19/2025 9:32 AM CDT Temperature 36.1 C (97 F) 04/20/2022 10:08 AM CDT Respiratory Rate - - Oxygen Saturation 97% 01/19/2025 9:32 AM CDT Inhaled Oxygen Concentration - - Weight 115.2 kg (253 lb 14.4 oz) 01/19/2025 9:32 AM CDT Height 170.2 cm (5' 7) 01/19/2025 9:32 AM CDT Body Mass Index 39.77 01/19/2025 9:32 AM CDT Plan of Treatment Upcoming Encounters Date Type Department Care Team (Late st Contact Info) Description 03/05/2025 10:15 AM CDT Office Visit [facility] [place] [address] [address] [place] [address] 03/14/2025 10:30 AM CDT Telemedicine [facility] [address] [place] [address] Maggie Jane, PsyD, LP [address] [place] [address] 03/26/2025 2:00 PM CDT Tele[facility] [address] [place] [address] Maggie Jane, PsyD, LP [address] [place] [address] Health Maintenance Due Date Last Done Comments HIV for age 15-65 1984 Hepatitis C screening for ag e 18-79 11/14/1987 Hepatitis B series for 19+ ( 1 of 3 - 19+ 3-dose series) 1988 Pap test for age 21-65 1990 Colonoscopy through age 75 2014 Lipids for age 45-75 2014 Mammogram for age 45-75 2014 Pneumococcal series for age 50+ (1 of 1 - PCV) 11/14/2019 Zoster (shingles) series for age 50+ (2 of 2) 12/03/2023 10/08/2023 COVID-19 vaccine series ( - 2023- season) 2024 05/13/2021, 04/18/2021 Influenza Vaccine (#1) 2025 BMI (ht and wt on same day) for age 18+ 01/19/2026 01/19/2025, 01/16/2025, 04/20/2022 Depression screening for age 12+ 01/19/2026 01/19/2025, 01/17/2025, 12/26/2024, Additional history exists Tetanus booster 10/16/2032 10/16/2022 Procedures Procedure Name Priority Date/Time Associated Diagnosis Comments CT CARDIAC CORONARY ARTERIES CV DUAL READ Routine 01/30/2025 10:35 AM CDT Chest pain, unspecified type CT CARDIAC CORONARY ARTERIES RAD DUAL READ Routine 01/30/2025 10:35 AM CDT Chest pain, unspecified type CREATININE,ISTAT Routine 01/30/2025 8:41 AM CDT Preprocedural cardiovascular examination EKG 12 LEAD Today 01/19/2025 9:33 AM CDT Hemiplegic migraine without status migrainosus, not intractable from Last 3 Months Results * CT CARDIAC CORONARY ARTERIES CV DUAL READ (01/30/2025 10:35 AM CDT) Anatomical Region Laterality Modality HEART Computed Tomogra phy 01/30/2025 10:0 8 AM CDT Narrative 01/30/2025 11:18 AM CDT [facility] Cardiac CT Report Name: SANDRA BROWN : Scan Date: Accession Number: [id number] Status: Final Electronically signed by Vishnu Wall 10:57:02 VITALS HEIGHT: 67 in (170 cm) WEIGHT: 253 lbs (115 kgs) BSA: 2.23 m^2 BMI: 40 kg/m^2 BP: 144 / 96 mmHg HEART RHYTHM: Normal Sinus Rhythm FINAL IMPRESSION [place] Coronaries: 1. Normal epicardial coronary arteries without atherosclerosis. STUDY QUALITY: Study quality is excellent. CAD-RADS: CAD-RADS Classification 0 (0% stenosis). CALCIUM SCORING: Total coronary artery calcium score 0. DOMINANCE: Right dominant coronary artery system. LM: The LM is normal. LAD: The LAD is normal. D1: The first diagonal is normal. D2: The second diagonal is normal. LCX: The LCx is normal. OM1: The first obtuse marginal is normal. OM2: The second obtuse marginal is normal. RCA: The RCA is normal. RIGHT PDA: The right PDA is normal. RIGHT PLB: The right posterolateral branch is normal. OTHER FINDINGS: Asc Ao 32 x 32 Normal FRANCISCO JAVIER without clot CALCIUM SCORING TABLE . . Number of Lesions Pattern of Calcium Volume Total Score +-------+ + +--------+ + LM 0 0 LAD 0 0 LCx 0 0 RCA 0 0 Ramus 0 0 '-------+ + +--------+ ' SCAN INFO TEST TYPE: Calcium score, Coronary CT Angiography SCANNER STEWARD/STEWARDESS ROOM: SIEMENS SCANNER MODEL: [employer] DOSE REDUCTION ALGORITHM: Helical with dose modulation PHASE UNITS: % START PHASE: 67 % END PHASE: 72 % EKG GATED: Yes PRE-CONTRAST: Yes POST-CONTRAST: Yes 3D RECONSTRUCTION: Yes GENERAL CONTRAST AGENT CONTRAST AGENT USED?: Yes TYPE: Omnipaque 350 DOSE: 120 ml RATE: 7.5 ml/s ROUTE: IV ARM: Right BOLUS TECHNIQUE: Biphasic SERUM CREATININE: 0.9 mg/dL CREATININE DATE: CT CONTRAST REACTION: None MEDICATION ADMINISTERED DURING SCAN TYPE: Nitroglycerin, sublingual, B-Blockers NITROGLYCERIN, TOTAL DOSE: 1.2 mg B-JOYCE TYPE: Oral B-JOYCE NAME, ORAL: Metoprolol tartrate B-BLOCKERS, ORAL DOSE: 100 mg RADIATION DOSE DLP: 591 KV: 120 SETUP PATIENT TYPE: Outpatient REASON(S) FOR SCAN: Chest pain REFERRING PHYSICIAN: YINA PASCAL TECHNOLOGIST: Dali Montejo BILLING Patient Account [id number] ICD10 Codes R07.9 Report generated by [employer], a product of [employer] Yina Pascal MD CT Final Result * CT CARDIAC CORONARY ARTERIES RAD DUAL READ (01/30/2025 10:35 AM CDT) Anatomical Region Laterality Modality HEART Computed Tomogra phy 01/30/2025 1:48 PM CDT Narrative 01/30/2025 1:48 PM CDT For Patients: As a result of the 21st Century Cures Act, medical imaging exams and procedure reports are released immediately into your electronic medical record. You may view this report before your referring provider. If you have questions, please contact your health care provider. THIS IS THE RADIOLOGY OVER READ REPORT OF A DUAL READ STUDY. READ THE SEPARATE CARDIOLOGY REPORT FOR CARDIOVASCULAR FINDINGS. REPORTS MAY BE FINALIZED AT DIFFERENT TIMES. COMPARISON : No comparison. TECHNIQUE : Please see cardiology report for technical information. This exam is being performed in conjunction with the services provided by the [facility] ([facility]). INDICATION: Cardiac over-read. FINDINGS: Aorta: This is reported by cardiology. Mediastinum: No adenopathy. Pulmonary arteries: Bolus timing may limit evaluation. Visualized/opacified pulmonary arteries demonstrate no filling defects. Lungs and pleural structures: Clear with no pleural effusions or suspicious nodules. Incidental small micronodule in the anterior lingula image 27 series 3. Miscellaneous: No acute or suspicious skeletal or upper abdominal imaging abnormality. IMPRESSION : 1. See separate cardiology report for cardiac findings. 2. Lingular small incidental micronodule. Incidental micronodule/s, optional follow-up chest CT scan in the presence of any significant risk factor (example smoking history or prior malignancy). 3. No additional significant extra cardiac imaging abnormality. Please note that all CT scans at this facility use dose modulation, iterative reconstruction, and/or weight-based dosing when appropriate to reduce radiation dose to as low as reasonably achievable. Dictated by John Shelley MD @ 01/30/2025 1:48:04 PM (Electronically Signed) Procedure Note John Shelley MD - 01/30/2025 For Patients: As a result of the Century Cures Act, medical imagingexams and procedure reports are released immediately into your electronicmedical record. You may view this report before your referring provider.If you have questions, please contact your health care provider. THIS IS THE RADIOLOGY OVER READ REPORT OF A DUAL READ STUDY. READ THESEPARATE CARDIOLOGY REPORT FOR CARDIOVASCULAR FINDINGS. REPORTS MAY BEFINALIZED AT DIFFERENT TIMES. COMPARISON : No comparison. TECHNIQUE : Please see cardiology report for technical information. This exam is being performed in conjunction with the services provided bythe [facility] ([facility]). INDICATION: Cardiac over-read. FINDINGS: Aorta: This is reported by cardiology. Mediastinum: No adenopathy. Pulmonary arteries: Bolus timing may limit evaluation. Visualized/opacified pulmonary arteriesdemonstrate no filling defects. Lungs and pleural structures: Clear with no pleural effusions orsuspicious nodules. Incidental small micronodule in the anterior lingulaimage 27 series 3. Miscellaneous: No acute or suspicious skeletal or upper abdominal imagingabnormality. IMPRESSION : 1. See separate cardiology report for cardiac findings. 2. Lingular small incidental micronodule. Incidental micronodule/s, optional follow-up chest CT scan in the presenceof any significant risk factor (example smoking history or priormalignancy). 3. No additional significant extra cardiac imaging abnormality. Please note that all CT scans at this facility use dose modulation,iterative reconstruction, and/or weight-based dosing when appropriate toreduce radiation dose to as low as reasonably achievable. Dictated by John Shelley MD @ 01/30/2025 1:48:04 PM (Electronically Signed) Yina Pascal MD CT Final Result * CREATININE,ISTAT (01/30/2025 8:41 AM CDT) [facility] POCT,CREATININE , ISTAT 0.9 0.6 - 1.3 mg/dL [facility] ( Blood BLOOD SPECIMEN / Unknown 01/30/2025 8:41 AM CDT 01/30/2025 8:42 AM CDT Yina Pascal MD CHEMISTRY Final Result [facility] [address] [place] [address], [facility] ( [address] [place] [address] * EKG 12 LEAD (01/19/2025 9:33 AM CDT) [facility] Interpretation Normal sinus rhythm Left axis deviation Cannot rule out Anterior infarct , age undetermined Abnormal ECG No previous ECGs available Ventricular Rate 91 BPM Atrial Rate 91 BPM P-R Interval 148 ms QRS Duration 72 ms QT 374 ms QTc 460 ms P [place] 55 degrees R [place] -30 degrees T [place] 55 degrees 01/19/2025 9:33 AM CDT 01/22/2025 3:41 PM CDT us Yina Pascal MD EKG ORD Final Result from Last 3 Months Insurance File[employer] Document Management software [employer] MR Care Teams Wash Box Operator Relationship Specialty Start Date End Date Violet Gilliam MD [address] [place] [address] PCP - General Family Practice 03/13/22
--- NOTE | 2025-03-02 15:49 | ED_ITS ---
HPI - General Adult General Chief complaint: Headache/Migraine Stated complaint: Migraine Time Seen by Provider: 03/02/25 15:27 History of Present Illness HPI narrative: Patient is a 54 white female with a history of hemiplegic migraine where she has had significant neurologic changes during a migraine. She reports she has had a migraine now. She is brought in by ambulance. She got some Tylenol had an EKG that showed no abnormalities. She was given IV fluid. She has been yawning and awake and alert oriented to person place and time. Feels she has a frontal headache. No thunderclap nature to it no history of subarachnoid hemorrhage type symptoms this is her typical migraine. She typically does well with medicines like Phenergan, Benadryl, Toradol, IV fluid when she is in the ER. She has been cooperative and responsive. 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 She also complained of some chest pain this seems to be better now. EKG was done for on presentation that showed normal sinus rhythm some artifact borderline prolonged QT no ST T wave changes. And this is by my read. Related Data Home Medications ?Medication ?Instructions ?Recorded ?Confirmed dexamethasone 1 mg tablet 1 mg PO .Daily as needed PRN 06/24/22 02/16/25 frovatriptan 2.5 mg tablet 2.5 mg PO PRN 06/24/2201/22 ketorolac 10 mg tablet 10 mg PO ONCE 06/24/2202/16 prednisone 10 mg tablet 10 mg PO .as needed PRN 110 10/1402/16/25 promethazine 25 mg tablet 25 mg PO PRN 06/24/22 sumatriptan succinate 6 mg/0.5 mL mg subcut .As Needed PRN 06/24/22 02/16/25 subcutaneous solution verapamil 240 mg tablet,extended 240 mg PO DAILY 06/2403/02/25 release rosuvastatin 20 mg tablet 20 mg PO DAILY 03/02/2502/20 sumatriptan succinate 6 mg/0.5 mL mg subcut 03/02/25 subcutaneous pen injector Previous Rx's ?Medication ?Instructions ?Recorded amitriptyline 25 mg tablet 25 mg PO QPM #90 tabs 04/08 peg 3350-electrolytes 236 240 ml PO ONCE #1 bottle gram-22.74 gram-6.74 gram-5.86 gram solution (Golytely) cholecalciferol (vitamin D3) 25 25 mcg PO QDAY #90 cap s 02/16/25 mcg (1,000 unit) capsule cyanocobalamin (vitamin B-12) 1,000 mcg PO Q OTHER DAY #45 tabs 02/16/25 1,000 mcg tablet (Vitamin B-12) hydrochlorothiazide 25 mg tablet 12.5 mg (1/2 x 25 mg) PO DAILY #90 02/16/25 tabs metformin 500 mg tablet,extended 1,000 mg (2 x 500 mg) PO BID #360 02/16/25 release 24 hr tabs Allergies Allergy/AdvReac Type Severity Reaction Status Date / Time fentanyl Allergy Severe Anaphylaxis Verified 02/16/25 09:28 morphine Allergy Intermediate edema Verified 02/16/25 09:28 diazepam Allergy Unknown low Verified 02/16/25 09:28 respirations hydroxyzine Allergy Unknown low Verified 02/16/25 09:28 respirations iodine Allergy Unknown Anaphylaxis Verified 02/16/25 09:28 ondansetron Allergy Unknown Nausea Verified 02/16/25 09:28 Shellfish Allergy Allergy Unknown Anaphylaxis Uncoded 02/16/25 09:28 Review of Systems Status of ROS: Reports: 6 or more systems reviewed and unremarkable except as noted in History and below [facility] Medical History Pulmonary nodule ?R91.1 - Solitary pulmonary nodule (ICD-10) Agatston coronary artery calcium score less than 100 ?R93.1 - Abnormal findings on diagnostic imaging of heart and coronary circulation (ICD-10) Atypical chest pain (~06/2022) ?R07.89 - Other chest pain (ICD-10) Vitamin D deficiency ?E55.9 - Vitamin D deficiency, unspecified (ICD-10) Ulcerative colitis ?K51.90 - Ulcerative colitis, unspecified, without complications (ICD-10) Prolonged QT interval ?R94.31 - Abnormal electrocardiogram [ECG] [EKG] (ICD-10) Prediabetes ?R73.03 - Prediabetes (ICD-10) Dizziness ?R42 - Dizziness and giddiness (ICD-10) PCOS (polycystic ovarian syndrome) ?E28.2 - Polycystic ovarian syndrome (ICD-10) Surgical History History of laparoscopy (1984) ?Z98.890 - Other specified postprocedural states (ICD-10) History of hysterectomy for benign disease (1996) ?Z90.710 - Acquired absence of both cervix and uterus (ICD-10) History of cholecystectomy (1997) ?Z90.49 - Acquired absence of other specified parts of digestive tract (ICD- 10) History of appendectomy (1996) ?Z90.49 - Acquired absence of other specified parts of digestive tract (ICD- 10) Family History Mother Bipolar disorder Father Diabetes Colon cancer, Onset Age: 75 Prostate cancer Social History Narrative: , 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, 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, 2 kids, Walks 2-year-old [place] mi every day nonsmoker, rarely consumes alcohol What is your current living situation?: I presently have a place to live Problems where you live: no known problems In the past 12 months, utilities in danger of being shut off: no In past 12 months, lack of transportation kept you from medical appts, meetings, work, or getting things needed for daily living: no In the past 12 mos, have been you worried that your food would run out before you had money to buy more?: never true In the past 12 mos, the food you bought just didn't last and you didn't have money to buy more?: never true Smoking Status: Former smoker Do you use any of these nicotine containing products: None How often do you have a drink containing alcohol: monthly or less AUDIT-C Alcohol total score: 1 Non-prescribed substance use: denies use Caffeine: Yes How often does anyone, including family, friends and others, physically hurt you : never How often does anyone, including family, friends and others, insult or talk down to you: never How often does anyone, including family, friends and others, threaten you with harm: never How often does anyone, including family, friends and others, scream or curse at you: never Are you using contraception or practicing any form of control: No service: No Exam Narrative: Exam Narrative: Objective: Vital signs are within normal limits Alert orient x3, the patient does have her eyes closed but will open them on questioning. Does answer questions. Speaks normally. No facial asymmetry. Extraocular movements intact Neck is supple Chest clear Heart rhythm regular without murmur occasional ectopic beat noted Abdomen benign soft nontender no masses Extremities are no edema neurologic nonfocal upper lower extremities patient is moving all extremities good peripheral perfusion Skin periphery warm and dry. Const: Vital Signs, click to edit/add: Vital Signs - 24 hr 03/02/25 15:34 03/02/25 15:35 03/02/25 15:38 Temperature 95.7 F L Pulse Rate 87 81 Pulse Rate [Pulse Oximeter] 84 Respiratory Rate 11 L 11 L 20 Blood Pressure 112/70 Blood Pressure [Ri ght Upper Arm] 112/70 Pulse Oximetry 97 95 97 Oxygen Delivery Me od Room Air 03/02/25 15:40 03/02/25 15:45 03/02/25 15:53 Temperature Pulse Rate 74 79 Pulse Rate [Pulse Oximeter] Respiratory Rate 14 8 L Blood Pressure 129/77 Blood Pressure [Ri ght Upper Arm] Pulse Oximetry 97 98 98 Oxygen Delivery Mo thod 03/02/25 16:00 03/02/25 16:01 03/02/25 16:15 Temperature Pulse Rate 71 72 66 Pulse Rate [Pulse Oximeter] Respiratory Rate 23 22 22 Blood Pressure 132/75 Blood Pressure [Ri ght Upper Arm] Pulse Oximetry 96 96 99 Oxygen Delivery Mo thod 03/02/25 16:30 03/02/25 16:32 03/02/25 16:33 Temperature Pulse Rate 73 75 76 Pulse Rate [Pulse Oximeter] Respiratory Rate 18 19 15 Blood Pressure 112/69 Blood Pressure [Ri ght Upper Arm] Pulse Oximetry 98 97 97 Oxygen Delivery Me thod 03/02/25 16:45 03/02/25 17:00 03/02/25 17:01 Temperature Pulse Rate 75 77 73 Pulse Rate [Pulse Oximeter] Respiratory Rate 19 22 20 Blood Pressure 118/74 Blood Pressure [Ri ght Upper Arm] Pulse Oximetry 98 98 97 Oxygen Delivery Me thod 03/02/25 17:15 03/02/25 17:30 03/02/25 17:32 Temperature Pulse Rate 87 78 83 Pulse Rate [Pulse Oximeter] Respiratory Rate 35 H 19 24 Blood Pressure 117/74 Blood Pressure [Ri ght Upper Arm] Pulse Oximetry 99 99 99 Oxygen Delivery Me thod 03/02/25 17:45 03/02/25 18:00 03/02/25 18:01 Temperature Pulse Rate 76 75 73 Pulse Rate [Pulse Oximeter] Respiratory Rate 17 21 Blood Pressure 118/77 Blood Pressure [Ri ght Upper Arm] Pulse Oximetry 98 97 96 Oxygen Delivery Me thod Course Vital Signs Vital signs: Initial Vital Signs Pulse Rate 87 03/02/25 15:34 Respiratory Rate 11 L 03/02/25 15:34 Blood Pressure 112/70 03/02/25 15:34 Blood Pressure Mean 84 03/02/25 15:34 Pulse Oximetry 97 03/02/25 15:34 Vital Signs Pulse Rate 87 03/02/25 15:34 Respiratory Rate 11 L 03/02/25 15:34 Blood Pressure 112/70 03/02/25 15:34 Pulse Oximetry 97 03/02/25 15:34 Temperature 95.7 F L 03/02/25 15:38 Pulse Rate 73 03/02/25 18:01 Respiratory Rate 21 03/02/25 18:01 Blood Pressure 118/77 03/02/25 18:01 Pulse Oximetry 96 03/02/25 18:01 Oxygen Delivery Method Room Air 03/02/25 15:38 Medications Administered Medications: Discontinued Medications Generic Name Dose Route Start Last Admin Trade Name Freq PRN Reason Stop Dose Admin Diphenhydramine HCl 25 mg 03/02/25 15:39 03/02/25 16:07 Diphenhydramine 50 Mg/Ml Inj IVP 03/02/25 15:40 25 mg ONCE ONE Administration Sodium Chloride 1,000 mls @ 6,000 mls/hr 03/02/25 15:45 03/02/25 17:20 0.9 % Sodium Chloride 1000 Ml IV 03/02/25 15:54 Infused .Q10M ALFRED Infusion Metoclopramide HCl 10 mg/ 102 mls @ 306 mls/hr 03/02/25 15:39 03/02/25 16:40 Sodium Chloride IV 03/02/25 15:40 Infused ONCE ONE Infusion Ketorolac Tromethamine 30 mg 03/02/25 15:39 03/02/25 16:09 Ketorolac 30 Mg/Ml Inj IVP 03/02/25 15:40 30 mg ONCE ONE Administration Medical Decision Making MDM Narrative Medical decision making narrative: 54-year-old female with history of hemiplegic migraine with a similar presentation today. She is brought in by ambulance. Will give her Toradol, Benadryl, and Reglan IV. Will give her IV fluid. Patient be put on radiographer cardiac catheterization telemetry. Oximetry. Will check electrolytes labs. At this point she had a CT scan recently and I do not think I would repeat this at this time given the risk of radiation and the fact that she has hemiplegic migraine. She also has complaint of chest pains will get a troponin and keep her on the radiographer cardiac catheterization as mention. Disposition pending findings above. Addendum 5:48 p.m.: Patient has improved nicely she feels back to normal she has no headache at all. Her EKG shows normal sinus rhythm slightly prolonged QT by my read. The patient has laboratory studies that are largely unremarkable she has a negative troponin. Her EKG looks reassuring. She has no further chest pain. She had chest pain with her last hemiplegic migraine . The patient has no abnormalities in her CBC or ER profile, her troponin is negative as mention. Her D-dimer is negative as well. At this point she has had a traditional or typical hemiplegic migraine for her I think she can go home rest light activity continue home medications recheck as needed. Follow up with primary care in the next 3-4 days. Lab Data Labs: Lab Results 03/02/25 03/02/25 Range/Units 15:40 15:41 WBC 7.68 (4.50-11.00) K/uL RBC 4.58 (4.00-5.20) m/uL Hgb 13.0 (12.0-16.0) gm/dL Hct 40.2 (33.0-51.0) % MCV 88 (80-100) fL MCH 28 (26-34) pg MCHC 32 (32-36) gm/dL RDW Coeff of Tiny 12.4 (11.5-15.5) % Plt Count 359 (140-440) K/uL Neut % (Auto) 58.5 (42.0-72.0) % Lymph % (Auto) 26.6 (20-44) % [place] % (Auto) 10.8 (0.0-11.0) % Eos % (Auto) 3.3 (0.0-7.0) % Baso % (Auto) 0.7 (0.0-3.0) % Neut # (Auto) 4.50 (1.7-7.0) K/uL Lymph # (Auto) 2.04 (0.90-2.90) K/uL [place] # (Auto) 0.80 (0.00-0.90) K/UL Eos # (Auto) 0.25 (0.00-0.50) K/uL Baso # (Auto) 0.05 (0.00-0.30) K/uL Abs Immat Gran (auto) 0.01 (0.00-0.30) K/uL Imm/Tot Granulo (auto) 0.1 % D-Dimer Quant (PE/DVT) < 0.27 (0.00-0.50) ug/ml Sodium 139 (135-149) mmol/L Potassium 3.6 (3.6-5.1) mmol/L Chloride 106 (96-114) mmol/L Carbon Dioxide 26 (20-32) mmol/L Anion Gap 7 (7-15) mEq/L BUN 13 (7-30) mg/dL Creatinine 0.8 (0.5-1.5) mg/dL Estimated Creat Clear 65.73 Estimated GFR 87 ml/min Glucose 140 H (60-115) mg/dL Calcium 8.8 (8.4-10.6) mg/dL Total Bilirubin 0.3 (0.1-1.5) mg/dL Direct Bilirubin 0.0 (0.0-0.5) mg/dL AST 26 (12-35) U/L ALT 23 (4-35) U/L Alkaline Phosphatase 84 (40-150) U/L NT-Pro-B Natriuret Pep < 20 (See Note) pg/mL Total Protein 6.7 (6.0-8.3) g/dL Albumin 4.0 (3.3-5.0) g/dL POC Troponin I 0.00 L (0.01-0.04) ng/ml Discharge Plan Discharge Clinical Impression: Hemiplegic migraine, Chest pain Patient Disposition: Home w/ Parent or Adult Condition: Improved Instructions: Migraine Headache (ED) Additional Instructions: Light activity, follow up with primary care in the next 3-4 days, continue home medications, rest tonight, good fluid intake. Return to ED as needed. Activity Level: Light activity Discharge Diet: Regular Prescriptions: No Action verapamil 240 mg tablet extended release 240 mg PO DAILY frovatriptan 2.5 mg tablet 2.5 mg PO PRN promethazine 25 mg tablet 25 mg PO PRN dexamethasone 1 mg tablet 1 mg PO .Daily as needed PRN ketorolac 10 mg tablet 10 mg PO ONCE prednisone 10 mg tablet 10 mg PO .as needed PRN sumatriptan succinate 6 mg/0.5 mL solution subcut .As Needed PRN Rx Instructions: INJECT 6 MG SC AT ONSET OF HEADACHE, MAY REPEAT ONCE IN 1 HR PRN, MAX 2 INJECTIONS/24 HRS metformin 500 mg tablet extended release 24 hr 1,000 mg PO BID Qty: 360 3RF hydrochlorothiazide 25 mg tablet 12.5 mg PO DAILY Qty: 90 3RF cyanocobalamin (vitamin B-12) [Vitamin B-12] 1,000 mcg tablet 1,000 mcg PO Q OTHER DAY Qty: 45 3RF cholecalciferol (vitamin D3) 25 mcg (1,000 unit) capsule 25 mcg PO QDAY Qty: 90 3RF sumatriptan succinate 6 mg/0.5 mL pen injector subcut rosuvastatin 20 mg tablet 20 mg PO DAILY amitriptyline 25 mg tablet 25 mg PO QPM Qty: 90 0RF peg 3350-electrolytes [Golytely] 236-22.74-6.74 -5.86 gram recon soln 240 ml PO ONCE Qty: 1 0RF Rx Instructions: 4pm day prior to procedure. Drink 8oz glass every 15 minutes until 1/2 of solution is gone. 6 hours prior to procedure drink 8 oz glass every 15 minutes until remaining solution gone. Follow Up/Referrals: Violet Gilliam MD [Primary Care Provider, Family Practice] Stand Alone Forms: Bill[facility] Info Instructions
[2025-03-02 16:06] LABS: Troponin, Point-of-Care* 0.00 ng/ml (0.01-0.04)
[2025-03-02] MEDS: METOCLOPRAMIDE HCL 10 MG in 0.9 % SODIUM CHLORIDE 100 ml 100 ML 306 MG IV (16:10)
[2025-03-02 16:27] LABS: Albumin* 4.0 g/dL (3.3-5.0); Chloride* 106 mmol/L (96-114); Potassium* 3.6 mmol/L (3.6-5.1); Sodium* 139 mmol/L (135-149)
[2025-03-02 16:28] LABS: Hematocrit 40.2 % (33.0-51.0); Hemoglobin* 13.0 gm/dL (12.0-16.0); Immature Granulocytes Abs Auto 0.01 K/uL (0.00-0.30); Immature Granulocytes Pct Auto 0.1 %; Lymphocytes Absolute Auto 2.04 K/uL (0.90-2.90); Mean Corpuscular HGB Conc 32 gm/dL (32-36); Mean Corpuscular Hemoglobin 28 pg (26-34); Mean Corpuscular Volume 88 fL (80-100); RDW Coefficient of Variation % 12.4 % (11.5-15.5); Red Blood Count 4.58 m/uL (4.00-5.20); Slide Review Reflex No; White Blood Count* 7.68 K/uL (4.50-11.00)
[2025-03-02 16:30] LABS: Alanine Aminotransferase* 23 U/L (4-35); Alkaline Phosphatase* 84 U/L (40-150); Anion Gap 7 mEq/L (7-15); Aspartate Amino Transferase* 26 U/L (12-35); Bilirubin Direct* 0.0 mg/dL (0.0-0.5); Bilirubin Total* 0.3 mg/dL (0.1-1.5); Blood Urea Nitrogen* 13 mg/dL (7-30); Carbon Dioxide* 26 mmol/L (20-32); Creatinine* 0.8 mg/dL (0.5-1.5); Est. Creatinine Clearance* 65.73; Estimated Glomerular Filt Rate 87 ml/min; Total Protein* 6.7 g/dL (6.0-8.3)
[2025-03-02 16:31] LABS: Calcium* 8.8 mg/dL (8.4-10.6); Glucose* 140 mg/dL (60-115)
[2025-03-02 16:36] LABS: D Dimer Quantitative* < 0.27 ug/ml (0.00-0.50)
[2025-03-02 16:42] LABS: NT Pro B Type NatriureticPept* < 20 pg/mL (See Note)
== END 2025-03-02 18:07 | disposition home or self-care (01) ==
PROVIDERS: Emergency Provider Family Medicine; PCP Family Medicine
DX: G43.409 Hemiplegic migraine, not intractable, without status migrainosus (principal); R07.9 Chest pain, unspecified
CPT/HCPCS: 36415; 80048; 80076; 83880; 84484; 85025; 85379; 93005; 94761; 96374; 96375; 99284; 99285; J1200; J1885; J2765; J7030

== ENCOUNTER 2025-05-11 06:29 | Outpatient (CLI) | payer MEDICARE, SELFPAY ==
--- NOTE | 2025-05-11 07:52 | P.ANES_ITS ---
Anesthesia Charges Start Date/Time Anesthesia Start Date: 05/11/25 Anesthesia Start Time: 07:14 Stop Date/Time Anesthesia Stop Date: 05/11/25 Anesthesia Stop Time: 07:47 Coding CPT Codes CPT Codes: ANES LWR INTST NDSC NOS - 77353 ([id number]) P3 - PATIENT W/SEVERE SYS DISEASE, QK - WRAPPER STITCHER 2-4 CNCRNT ANES PROC, QX - JACQUARD CARD LACER SVC W/ MD MED DIRECTION
--- NOTE | 2025-05-11 07:52 | W.ANESCHARGE ---
Anesthesia Charges Start Date/Time Anesthesia Start Date: 05/11/25 Anesthesia Start Time: 07:14 Stop Date/Time Anesthesia Stop Date: 05/11/25 Anesthesia Stop Time: 07:47 Coding CPT Codes CPT Codes: ANES LWR INTST NDSC NOS - 29063 ([id number]) P3 - PATIENT W/SEVERE SYS DISEASE, QK - RAIL BONDER 2-4 CNCRNT ANES PROC, QX - COLLISION REPAIR TECHNICIAN SVC W/ MD MED DIRECTION
--- NOTE | 2025-05-11 08:00 | P.ANES_ITS ---
Anesthesia Charges Start Date/Time Anesthesia Start Date: 05/11/25 Anesthesia Start Time: 07:14 Stop Date/Time Anesthesia Stop Date: 05/11/25 Anesthesia Stop Time: 07:47 Coding CPT Codes CPT Codes: ANES LWR INTST NDSC NOS - 50926 ([id number]) P3 - PATIENT W/SEVERE SYS DISEASE, QK - ARCHIVES TECHNICIAN 2-4 CNCRNT ANES PROC, QX - AIR SUPPORT OPERATIONS OPERATOR SVC W/ MD MED DIRECTION
--- NOTE | 2025-05-11 08:00 | W.ANESCHARGE ---
Anesthesia Charges Start Date/Time Anesthesia Start Date: 05/11/25 Anesthesia Start Time: 07:14 Stop Date/Time Anesthesia Stop Date: 05/11/25 Anesthesia Stop Time: 07:47 Coding CPT Codes CPT Codes: ANES LWR INTST NDSC NOS - 09284 ([id number]) P3 - PATIENT W/SEVERE SYS DISEASE, QK - RUSSIAN LANGUAGE INSTRUCTOR 2-4 CNCRNT ANES PROC, QX - RACE AND SPORTS BOOK WRITER SVC W/ MD MED DIRECTION
== END 2025-05-11 06:30 | disposition home or self-care (01) ==
LOC: OP CLINIC 06:30
PROVIDERS: PCP Family Medicine; Visit Provider Internal Medicine Gastroenterology
DX: K51.00 Ulcerative (chronic) pancolitis without complications (principal); K52.9 Noninfective gastroenteritis and colitis, unspecified
CPT/HCPCS: 00811; 45380; 88305; 88342; J2704

== ENCOUNTER 2025-05-21 14:24 | Outpatient (CLI) | payer MEDICARE, SELFPAY ==
--- NOTE | 2025-05-21 15:00 | CRLHL7_ITS ---
For Patients: As a result of the Century Cures Act, medical imaging exams and procedure reports are released immediately into your electronic medical record. You may view this report before your referring provider. If you have questions, please contact your health care provider. INDICATION: BILATERAL SCREENING MAMMOGRAM, ASYMPTOMATIC 54 Y/O FEMALE COMPARISON: 02/22/2023 TECHNIQUE: Digital mammogram in CC and MLO projections including computer-aided detection (CAD) and tomosynthesis. BREAST COMPOSITION: There are scattered areas of fibroglandular density. FINDINGS: No suspicious findings. ASSESSMENT: BI-RADS 1 Negative RECOMMENDATION: Annual screening mammogram. A lay language report of this examination will be provided to the patient. Dictated by: Derrell Hu MD @ 05/22/2025 09:22:09 (Electronically Signed)
== END 2025-05-21 14:25 | disposition home or self-care (01) ==
LOC: MAMMO 14:24
PROVIDERS: PCP Family Medicine; Visit Provider Family Medicine
DX: Z12.31 Encounter for screening mammogram for malignant neoplasm of breast (principal)
CPT/HCPCS: 77063; 77067

== ENCOUNTER 2025-06-18 08:47 | Outpatient (CLI) | payer MEDICARE, SELFPAY | END 2025-06-18 08:48 | disposition home or self-care (01) | LOC: NFLDREF 06-19 18:10 | PROVIDERS: PCP Family Medicine; Referring Provider Family Medicine; Visit Provider Family Medicine | DX: E11.69 Type 2 diabetes mellitus with other specified complication (principal); E66.9 Obesity, unspecified; Z68.41 Body mass index [BMI] 40.0-44.9, adult; I10 Essential (primary) hypertension; E78.5 Hyperlipidemia, unspecified | CPT/HCPCS: 80053; 80061; 82043; 82570; 84443 ==

== ENCOUNTER 2025-07-11 14:15 | Outpatient (CLI) | payer MEDICARE, SELFPAY ==
--- NOTE | 2025-07-11 14:30 | CRLHL7_ITS ---
For Patients: As a result of the Century Cures Act, medical imaging exams and procedure reports are released immediately into your electronic medical record. You may view this report before your referring provider. If you have questions, please contact your health care provider. DXA BONE MINERAL DENSITY STUDY Current height (in): 67. Weight (lb): 245. Menopause age: 28. Ethnicity: White. 1. Have you had a previous hip or vertebral fracture? No. 2. Have you had any fractures during your adult life which did not result from significant trauma (e.g., auto accident)? No. 3. Did either of your parents have a hip fracture? No. 4. Do you smoke? No. 5. Have you ever taken Glucocorticoids? Yes. 6. Do you have rheumatoid arthritis? No. 7. Do you have secondary osteoporosis? No. 8. Do you drink 3 or more alcoholic drinks per day? No. 9. Are you being treated for osteoporosis? No. 10. Have you ever taken any of the following medications: Actonel, Evista, Fosamax, Miacalcin, Reclast, Boniva, Forteo, HRT (i.e. estrogen/hormone therapy), Protelos, Prolia, Vitamin D, Calcium, other ??? please specify. ANSWER: Yes, vitamin D. 11. Do you have any of the following medical conditions: Anorexia or bulimia, asthma or emphysema, end stage renal disease, hyperparathyroidism, any seizure disorders, cancer, inflammatory bowel diseases, hysterectomy, other ??? please specify. ANSWER: Yes, inflammatory bowel disease, hysterectomy. 12. What was your maximum height (inches)? 68. 13. Do you perform weight bearing exercise regularly? No. 14. Do you regularly consume dairy products? Yes. 15. Do you drink caffeinated beverages? Yes. 16. At what age did your period start? 12. 17. Are you premenopausal? No. 18. How many full term pregnancies have you had? 2. 19. Have you ever missed your period for more than 6 months in a row (not including or menopause)? No. TECHNIQUE: Bone mineral density study was performed using the [employer]. FINDINGS: The results of the study expressed as bone mineral density (BMD) are as follows: Lumbar spine L1 to L4: BMD: 1.071 g/cm2. T-score: 0.2. Z-score: 1.3. Neck Left: BMD: 0.909 g/cm2. T-score: 0.5. Z-score: 1.6. Right: BMD: 0.877 g/cm2. T-score: 0.3. Z-score: 1.3. Total Left: BMD: 1.083 g/cm2. T-score: 1.2. Z-score: 1.9. Right: BMD: 1.057 g/cm2. T-score: 0.9. Z-score: 1.7. IMPRESSION: Normal bone density. *Comparison exams done prior to 01/2020 were performed on different unit, [employer] Nupur Cervantes M.D. Diagnostic Radiologist [email or web address] JOSÉ MIGUEL/Dictated by: Nupur Cervantes MD @ 07/11/2025 6:01:00 PM (Electronically Signed)
== END 2025-07-11 14:16 | disposition home or self-care (01) ==
LOC: RAD 14:16
PROVIDERS: PCP Family Medicine; Visit Provider Family Medicine
DX: E28.319 Asymptomatic premature menopause (principal)
CPT/HCPCS: 77080